=== PATIENT | male | born 1945 | race Caucasian/White ===

== ENCOUNTER 2018-02-26 19:26 | Inpatient (IN) ==
[2018-02-26] MEDS ORDERED: Sod Chloride 0.9% Inj 1,000 ML IV.CONT SCH (20:15)
[2018-02-26] MEDS ORDERED: Morphine Inj 4 MG/ML Vial IV.PUSH ONE (20:37)
--- NOTE | 2018-02-26 21:10 | ED ---
HPI General Chief complaint: Neck Pain/Injury Stated complaint: Trauma Transfer Time Seen by Provider: 02/26/18 19:31 Source: other (records from outside hospital) History of Present Illness HPI narrative: Patient presents to the emergency department as a transfer from [facility]. Patient apparently fell on and he was diagnosed with left rib fractures, left wrist fracture, cervical spine fractures, T-spine fracture, questionable subarachnoid hemorrhage, and questionable intra- abdominal injury. Patient was accepted by the trauma doctor, Dr Najera, and transfer to [facility] for further evaluation. Emergency department patient is complaining of pain "all over.". Related Data Home Medications Medication Instructions Recorded Confirmed lithium aspartate 30 mg PO TID 02/26/18 02/26/18 Allergies Allergy/AdvReac Type Severity Reaction Status Date / Time No Known Allergies Allergy Verified 02/26/18 20:14 Review of Systems ROS: all other systems reviewed are negative [facility] Medical History Medical History GERD (gastroesophageal reflux disease) (Acute) Gallbladder disease (Acute) Social History Social History Recent Travel in [facility] within the Last 8 Weeks: No Recent Out of Country Travel within the Last 8 Weeks: No Exam Narrative Exam Narrative: GENERAL: No acute distress. SKIN: Focused skin assessment warm/dry. HEAD: Atraumatic. Normocephalic. EYES: Pupils equal and round. No scleral icterus. No injection or drainage. ENT: No nasal bleeding or discharge. Mucous membranes pink and moist. NECK: Trachea midline. No JVD. C-collar in place. She has diffuse cervical spine tenderness. CARDIOVASCULAR: Regular rate and rhythm. No murmur appreciated. Chest: Left chest wall tender to palpation RESPIRATORY: No accessory muscle use. Clear to auscultation. Breath sounds equal bilaterally. GASTROINTESTINAL: Abdomen soft, non-tender, nondistended. Hepatic and splenic margins not palpable. Rectal: Normal tone, no blood. MUSCULOSKELETAL: No obvious deformities. No clubbing. No cyanosis. No edema. Positive T-spine tenderness. No L-spine tenderness. NEUROLOGICAL: Awake and alert. No obvious cranial nerve deficits. Motor grossly within normal limits. Normal speech. PSYCHIATRIC: Appropriate mood and affect; insight and judgment normal. Course Initial Documented Vital Signs Temperature 97.8 F 02/26/18 19:33 Pulse Rate 114 H 02/26/18 19:33 Respiratory Rate 18 02/26/18 19:33 Blood Pressure 140/71 02/26/18 19:33 Pulse Oximetry 98 02/26/18 19:33 Last Documented Vital Signs Temperature 97.8 F 02/26/18 19:33 Pulse Rate 114 H 02/26/18 19:33 Respiratory Rate 18 02/26/18 19:33 Blood Pressure 140/71 02/26/18 19:33 Pulse Oximetry 98 02/26/18 19:33 Medical Decision Making MDM Narrative Medical decision making narrative: Patient presents to the emergency department as a trauma transfer. Patient placed on conveyor monitor, continuous pulse ox, IV access obtained. She did present with labs and imaging results from the outside hospital. He is requesting medication for pain, given 4 mg IV morphine and normal saline at 100 cc/h. Discussed case with trauma surgeon, who advised to admit patient to ICU and he will evaluate patient and determine if additional imaging or blood work is required. Medical Screen Exam Complete: Yes Emergency Medical Condition: Yes Differential Diagnosis Differential Diagnosis: ICH, fractures, dislocation, intra-abdominal injury Discharge Plan Discharge Disposition Patient Disposition: 30 Still Patient Discharge Condition Condition: Critical Discharge Details Diagnosis: Fracture of wrist, Fracture, ribs, Fracture multiple cervical vertebra-closed, Fracture of thoracic spine Physicians Team ED Provider: Amena Danielle Primary Care Provider: UNKNOWN, Attending Provider: Masha Najera Status ED Status: Admitted Patient
[2018-02-26] MEDS ORDERED: Morphine Inj 4 MG/ML Vial IV.PUSH PRN (23:20)
--- NOTE | 2018-02-27 00:01 | XR ---
EXAM DATE: 02/26/2018 11:47 PM EDT AGE/SEX: 72 years / Male INDICATIONS: Trauma to left arm. Transfer from another facility. CLINICAL DATA: This is the patient's initial encounter. Patient reports that signs and symptoms have been present for 1 day and indicates a pain score of 10/10. MEDICAL/SURGICAL HISTORY: Non-responsive. Non-responsive. COMPARISON: No prior exams available for comparison. FINDINGS: There is fracture at the distal radial metaphyseal region. Significant displacement is not seen. Ther e is also fracturing at the ulnar styloid. The radiocarpal joint is aligned. There is degenerative ch ruchi at the first carpometacarpal joint. CONCLUSION: Acute appearing distal radial and ulnar styloid fracture. Electronically signed by: Deacon Still MD 02/26/2018 11:59 PM EDT
--- NOTE | 2018-02-27 00:54 | P.HPGS ---
History of Present Illness Primary Care Physician: UNKNOWN History of Present Illness: 73-year-old male transfer from [facility], apparently patient fell 3 days ago, he has been feeling weak and was seen in the [facility], they performed a complete trauma workup, has a left wrist fracture, he has questionable acute fractures of the C-spine, he has 4 acute rib fractures on the left side, the history taking patient complains of pain all over, he is awake, denies neck pain-patient is a poor historian he apparently has history of EtOH abuse-multiple other medical problems including liver cirrhosis. Inpatient Certification: I certify that the inpatient services were ordered in accordance with Medicare regulations governing the order. 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: Multiplex Operator / EMT - Medical History Medical History: Medical History (Last Updated 02/26/18 @ 22:44 by Barbara Jim) Bipolar disorder GERD (gastroesophageal reflux disease) Gallbladder disease - Tobacco History Tobacco Use In Past 30 Days: Yes Smoking Status: Current every day smoker Tobacco Type: Cigarettes - Alcohol History How Often Do You Have a Drink Containing Alcohol: Monthly or less - Travel History Recent Travel in the [place] Within the Last 8 Weeks: No Recent Travel Out of the Country Within the Last 8 Weeks: No - Immunization History Tetanus Immunization: <5 Years Medications and Allergies Active Medications: Active Medications Chlorhexidine Gluconate (Chlorhexidine 2% Cloth) 3 pack TOPICAL DAILY@0400 VIVIANE Stop: 03/04/18 03:59 Chlorhexidine Gluconate (Chlorhexidine 2% Cloth) 3 pack TOPICAL DAILY@0400 PRN PRN Reason: Extra cloth needed Stop: 03/04/18 03:59 Famotidine (Pepcid Pf Inj) 20 mg IV.PUSH Q12HR VIVIANE Sodium Chloride (Ns Inj) 1,000 mls @ 100 mls/hr IV.CONT .Q10H VIVIANE Last Admin: 02/26/18 20:38 Dose: 100 mls/hr Sodium Chloride (Ns Inj) 1,000 mls @ 100 mls/hr IV.CONT .Q10H [facility] Morphine Sulfate (Morphine Inj) 2 mg IV.PUSH Q2H PRN PRN Reason: PAIN SCALE 6 TO 10 Ondansetron HCl (Zofran Inj) 4 mg IV.PUSH Q6H PRN PRN Reason: NAUSEA OR VOMITING Senna/Docusate Sodium (Reina-Colace) 1 tab PO BID VIVIANE Allergies Allergy/AdvReac Type Severity Reaction Status Date / Time No Known Allergies Allergy Verified 02/26/18 20:14 Home Medications Medication Instructions Recorded Confirmed Type lithium aspartate 30 mg PO TID 02/26/18 02/26/18 History Exam Vital signs: Vital Signs 02/26/18 19:33 02/26/18 19:42 02/26/18 23:20 Temperature 97.8 F Pulse Rate 114 H 114 H 91 H Respiratory Rate 18 16 16 Blood Pressure 140/71 106/74 106/78 Pulse Oximetry 98 02/26/18 23:21 02/26/18 23:42 Temperature Pulse Rate Respiratory Rate 16 Blood Pressure Pulse Oximetry 98 Intake & Output 02/26/18 02/26/18 02/27/18 06:59 18:59 06:59 Weight 72.575 kg - Constitutional no acute distress, thin - Routine HEENT Exam Head: Present: normocephalic, atraumatic Eye: Present: EOMI, PERRL ENT: Present: mucous membranes moist, oropharynx clear - Routine Neck Exam Present: supple, full ROM, trachea midline - Routine Chest/Breast/Axilla Exam Chest wall: Present: tenderness - Routine Respiratory Exam Present: CTA bilaterally - Routine Cardiovascular Exam Present: RRR - Routine Abdominal Exam Present: soft, normoactive bowel sounds - Routine Neurological Exam Present: alert Results - Results CT scan - abdomen: report reviewed (Liver mass-liver cirrhosis) CT scan - chest: report reviewed (Fracture of the 4,5,7 and ninth ribs) Caprini VTE Risk Assessment Caprini VTE Risk Assessment: Moderate/High Risk (score >= 2) (acute trauma) VTE Pharmacological Exception Reason: Hemorrhage Caprini Risk Assessment Model: Point Value = 1 Point Value = 2 Point Value = 3 Point Value = 5 Age 41-60 Minor surgery BMI > 25 kg/m2 Swollen legs Varicose veins or History of unexplained or recurrent spontaneous Oral contraceptives or hormone replacement Sepsis (< 1 month) Serious lung disease, including pneumonia (< 1 month) Abnormal pulmonary function Acute myocardial infarction Congestive heart failure (< 1 month) History of inflammatory bowel disease Medical patient at bed rest Age 61-74 Arthroscopic surgery Major open surgery (> 45 min) Laparoscopic surgery (> 45 min) Malignancy Confined to bed (> 72 hours) Immobilizing plaster cast Central venous access Age >= 75 History of VTE Family history of VTE Factor V Leiden Prothrombin [id number] Lupus anticoagulant Anticardiolipin antibodies Elevated serum homocysteine Heparin-induced thrombocytopenia Other congenital or acquired thrombophilia Stroke (< 1 month) Elective arthroplasty Hip, pelvis, or leg fracture Acute spinal cord injury (< 1 month) Prophylaxis Regimen: Total Risk Factor Score Risk Level Prophylaxis Regimen 0-1 Low Early ambulation 2 Moderate Order ONE of the following: *Sequential Compression Device (SCD) *Heparin 5000 units SQ BID 3-4 Higher Order ONE of the following medications: *Heparin 5000 units SQ TID *Enoxaparin/Lovenox 40 mg SQ daily (WT < 150 kg, CrCl > 30 mL/min) *Enoxaparin/Lovenox 30 mg SQ daily (WT < 150 kg, CrCl > 10-29 mL/min) *Enoxaparin/Lovenox 30 mg SQ BID (WT < 150 kg, CrCl > 30 mL/min) AND/OR *Sequential Compression Device (SCD) 5 or more Highest Order ONE of the following medications: *Heparin 5000 units SQ TID (Preferred with Epidurals) *Enoxaparin/Lovenox 40 mg SQ daily (WT < 150 kg, CrCl > 30 mL/min) *Enoxaparin/Lovenox 30 mg SQ daily (WT < 150 kg, CrCl > 10-29 mL/min) *Enoxaparin/Lovenox 30 mg SQ BID (WT < 150 kg, CrCl > 30 mL/min) AND *Sequential Compression Device (SCD) Assessment and Plan - Plan Multiple rib fractures on the left side Left wrist fracture ? C-spine fracture ?TBI EtOH abuse hx Hyponatremia ? liver cancer Patient to the [facility] Neurosurgery consult in the morning Medical consult in the morning Follow sodium She has multiple medical issues , which are more pertinent than the trauma which happened 3 days ago-after neurosurgery& orthopedic assessment -patient could be transferred to the medical service
[2018-02-27] MEDS: Sod Chloride 0.9% Inj 1,000 ML IV.CONT SCH ×3 (01:08→15:22)
[2018-02-27] MEDS ORDERED: Chlorhexidine Gluconate 2% 1 Pack (2 Cloths) TOPICAL PRN (04:00)
[2018-02-27 04:29] LABS: Baso % (Auto) 0.5 % (0.0-2.0); Eos % (Auto) 0.2 % (0.0-4.0); Hematocrit 35.7 % (39.0-51.0); Hemoglobin 12.1 gm/dL (13.0-17.0); Lymph # (Auto) 0.9 th/mm3 (1.0-4.8); Lymph % (Auto) 9.8 % (9.0-44.0); Mean Corpuscular HGB Conc 33.8 % (32.0-36.0); Mean Corpuscular Hemoglobin 30.9 pg (27.0-34.0); Mean Corpuscular Volume 91.4 fL (80.0-100.0); Mean Platelet Volume 9.6 fL (7.0-11.0); Mono # (Auto) 0.7 th/mm3 (0.0-0.9); Neut # (Auto) 7.3 th/mm3 (1.8-7.7); Neut % (Auto) 81.5 % (16.0-70.0); Platelet Count 185 th/mm3 (150-450); Red Cell Distribution Width 13.8 % (11.6-17.2); White Blood Count 8.9 th/mm3 (4.0-11.0)
[2018-02-27 04:33] LABS: INR 1.3 Ratio; Prothrombin Time 12.7 sec (9.8-11.6)
[2018-02-27] MEDS: Chlorhexidine Gluconate 2% 1 Pack (2 Cloths) TOPICAL SCH (05:33)
--- NOTE | 2018-02-27 06:12 | XR ---
EXAM DATE: 02/27/2018 5:36 AM EDT AGE/SEX: 72 years / Male INDICATIONS: Shortness of breath, trauma. CLINICAL DATA: This is the patient's subsequent encounter. Patient reports that signs and symptoms h ave been present for 2 days and indicates a pain score of 10/10. MEDICAL/SURGICAL HISTORY: Hypertension. None. COMPARISON: No prior exams available for comparison. FINDINGS: The patient is rotated towards the right. The heart size is normal. There is mild increased density a t the left base. The right lung is grossly clear. The right costophrenic angle is excluded from the i mage. The bony structures appear grossly intact. CONCLUSION: Mild increased density at the left base representing some degree of consolidation/contusion or atelec tasis. Electronically signed by: Deacon Still MD 02/27/2018 6:10 AM EDT
--- NOTE | 2018-02-27 06:22 | MB ---
cc: Ovi Blake MD DATE: 02/27/2018 REASON FOR CONSULTATION: Left distal radius fracture. HISTORY OF PRESENT ILLNESS: This is a 72-year-old male who transferred from [facility]. He had a reported fall several days ago and was feeling weak. He went to [facility] and workup revealed a left distal radius fracture, questionable cervical spine fracture. He did have left-sided rib fractures. The patient is a poor historian. He has a history of alcohol abuse and liver cirrhosis. He is currently an inpatient in the intensive care unit at [facility] after transfer. He also had a questionable subarachnoid hemorrhage. Dr. Najera did accept the patient in transfer. PAST MEDICAL HISTORY: Positive for gallbladder disease, gastric reflux. REVIEW OF SYSTEMS: All other review of systems is negative. FAMILY HISTORY: Reviewed, noncontributory. SOCIAL HISTORY: Positive for alcohol. PHYSICAL EXAMINATION: GENERAL: The patient is lying in bed, awake, confused, in no acute distress. HEENT: Normocephalic, atraumatic. Pupils round. No scleral icterus. NECK: Midline. C-collar in place. HEART: Regular rate and rhythm. LUNGS: Clear. ABDOMEN: Soft, nontender. EXTREMITIES: Left upper extremity is currently splinted with a volar wrist splint. Brisk capillary refill of digits. Sensation is intact distally. IMAGING DATA: X-ray of the left wrist reveals a distal radius fracture. There was only mild impaction and mild dorsal angulation. Overall, the fracture alignment is satisfactory. IMPRESSION: This patient is a 72-year-old male who apparently had fallen 3 days ago. He has a distal radius fracture, left side, with only mild displacement, history of alcohol abuse, liver cirrhosis. He is being worked up for further cervical spine injury and possible traumatic brain injury. PLAN: Discussed the diagnosis with the patient. From an orthopedic standpoint, I recommend nonoperative treatment of the distal radius fracture. Maintain splint. The patient can follow up with the undersigned at the [facility] after discharge. MD MICHOACANO Avila/shirley , 05:51 AM , 05:58 AM
[2018-02-27 08:26] LABS: Baso % (Auto) 0.4 % (0.0-2.0); Eos % (Auto) 0.2 % (0.0-4.0); Hematocrit 36.1 % (39.0-51.0); Hemoglobin 12.2 gm/dL (13.0-17.0); Lymph # (Auto) 0.6 th/mm3 (1.0-4.8); Lymph % (Auto) 6.1 % (9.0-44.0); Mean Corpuscular HGB Conc 33.9 % (32.0-36.0); Mean Corpuscular Hemoglobin 31.2 pg (27.0-34.0); Mean Corpuscular Volume 91.9 fL (80.0-100.0); Mean Platelet Volume 9.5 fL (7.0-11.0); Mono # (Auto) 0.6 th/mm3 (0.0-0.9); Mono % (Auto) 6.8 % (0.0-8.0); Neut # (Auto) 8.1 th/mm3 (1.8-7.7); Neut % (Auto) 86.5 % (16.0-70.0); Platelet Count 194 th/mm3 (150-450); Red Blood Count 3.93 mil/mm3 (4.50-5.90); Red Cell Distribution Width 13.6 % (11.6-17.2); White Blood Count 9.4 th/mm3 (4.0-11.0)
[2018-02-27 08:47] LABS: Anion Gap 10 meq/L (5-15); Blood Urea Nitrogen 4 mg/dL (7-18); Calcium 7.7 mg/dL (8.5-10.1); Carbon Dioxide 20.3 meq/L (21.0-32.0); Chloride 103 meq/L (98-107); Glomerular Filtration Rate Greater Than 89 mL/min (>89); Glucose,Random 133 mg/dL (74-106); Potassium 3.9 meq/L (3.5-5.1); Sodium 133 meq/L (136-145)
[2018-02-27] MEDS: Famotidine PF Inj 20 MG/2 ML Vial IV.PUSH SCH ×2 (08:49→19:59)
[2018-02-27] MEDS: Senna/Docusate Sodium 8.6/50 MG Tablet PO SCH ×2 (08:50→19:59)
[2018-02-27] MEDS ORDERED: Morphine Inj 4 MG/ML Vial IV.PUSH PRN (09:26)
[2018-02-27] MEDS ORDERED: chlordiazePOXIDE 25 MG Capsule PO SCH (10:00)
[2018-02-27] MEDS ORDERED: Methocarbamol 500 MG Tablet PO SCH (10:00)
[2018-02-27] MEDS: Lidocaine 5% Patch T-DERMAL SCH (10:57)
--- NOTE | 2018-02-27 11:47 | P.PNCC ---
Subjective Brief History: 73-year-old male transfer from [facility], apparently patient fell 3 days ago, he has been feeling weak and was seen in the [facility], they performed a complete trauma workup, has a left wrist fracture, he has questionable acute fractures of the C-spine, he has 4 acute rib fractures on the left side, the history taking patient complains of pain all over, he is awake, denies neck pain-patient is a poor historian he apparently has history of EtOH abuse-multiple other medical problems including liver cirrhosis. 24 Hour Review/Hospital Course: 02/27 He is hemodynamically normal Sodium improved to 133 His urine output is adequate He is awake and alert He is slightly tachycardic which could be secondary to pain Currently no signs of delirium tremens but obviously patient is high risk Neurosurgical consult is pending Is neurologically intact Objective Vital Signs / I&O: Vital Signs 02/26/18 19:33 02/26/18 19:42 02/26/18 23:20 Temperature 97.8 F Pulse Rate 114 H 114 H 91 H Respiratory Rate 18 16 16 Blood Pressure 140/71 106/74 106/78 Pulse Oximetry 98 02/26/18 23:21 02/26/18 23:42 02/27/18 00:00 Temperature 97.9 F Pulse Rate 110 H Respiratory Rate 16 12 Blood Pressure 166/85 H Pulse Oximetry 98 99 02/27/18 04:00 02/27/18 08:00 Temperature 97.4 F L 98.3 F Pulse Rate 110 H 112 H Respiratory Rate 19 18 Blood Pressure 130/72 150/73 H Pulse Oximetry 97 91 L Intake & Output 02/26/18 02/27/18 02/27/18 18:59 06:59 18:59 Intake Total 1000 / 1000 Output Total 650 / 650 Balance -650 / -650 1000 / 1000 Weight 82.9 kg Intake: IV 1000 / 1000 NS Inj 1,000 ML @ 100 mls/hr IV 1000 / 1000 .CONT .Q10H VIVIANE Rx#:[id number] Output: Urine Amount (Catheter) 650 / 650 Indwelling Urethral Catheter 650 / 650 Other: Weight On Admission 83 kg Result Diagrams: 02/27/18 07:56 02/27/18 07:56 Imaging: Impressions Wrist X-Ray 02/26/18 00:00 CONCLUSION: Acute appearing distal radial and ulnar styloid fracture. Chest X-Ray 02/27/18 04:01 CONCLUSION: Mild increased density at the left base representing some degree of consolidation/contusion or atelectasis. 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
--- NOTE | 2018-02-27 14:14 | P.CONIM ---
History of Present Illness Primary Care Provider: UNKNOWN History of Present Illness: This is a 72-year-old male with history of alcohol abuse,, bipolar disorder, GERD transferred from [facility] after presenting 3 days ago for a fall. Patient was admitted to trauma and patient sustained a left wrist fracture, questionable C-spine fracture and multiple rib fractures. We are consulted for hyponatremia, alcohol abuse. Poor historian and not cooperative, most of the history is from the patient's . Patient allegedly fell 4 days ago down 12 steps. No loss of consciousness, no dizziness or lightheadedness. Denies any chest pain or palpitations. Patient has history of diabetes and hypertension but not on any medications. He has not seen any physician in years. Presently , his only complaint is pain all-over especially on his chest with deep inspiration. No headache, sob or palpitations. He drinks 6 shots of liquor daily , last drink was 4 days ago. Per , no history of hepatitis but he does have a history of fatty liver from alcohol abuse. FHX: non-contributory SHx: smokes more than a pack a day for years Review of Systems All other pertinent systems were reviewed and are negative. [facility] - History History Provided By: Manager Pathology / EMT - Medical History Medical History: Medical History (Last Reviewed 02/27/18 @ 09:38 by Domenica Jovel) Bipolar disorder GERD (gastroesophageal reflux disease) Gallbladder disease - Tobacco History Tobacco Use In Past 30 Days: Yes Smoking Status: Current every day smoker Tobacco Type: Cigarettes - Alcohol History How Often Do You Have a Drink Containing Alcohol: Monthly or less - Travel History Recent Travel in the [place] Within the Last 8 Weeks: No Recent Travel Out of the Country Within the Last 8 Weeks: No - Immunization History Tetanus Immunization: <5 Years Medications and Allergies Active Medications: Active Medications Albuterol (Duoneb Neb (Prn)) 1 ampul NEB Q2HR NEB PRN PRN Reason: SHORTNESS OF BREATH/WHEEZING Chlordiazepoxide (Librium) 25 mg PO Q6H [facility] Last Admin: 02/27/18 10:57 Dose: 25 mg Chlorhexidine Gluconate (Chlorhexidine 2% Cloth) 3 pack TOPICAL DAILY@0400 [facility] Stop: 03/04/18 03:59 Last Admin: 02/27/18 05:33 Dose: 3 pack Chlorhexidine Gluconate (Chlorhexidine 2% Cloth) 3 pack TOPICAL DAILY@0400 PRN PRN Reason: Extra cloth needed Stop: 03/04/18 03:59 Famotidine (Pepcid Pf Inj) 20 mg IV.PUSH Q12HR [facility] Last Admin: 02/27/18 08:49 Dose: 20 mg Sodium Chloride (Ns Inj) 1,000 mls @ 100 mls/hr IV.CONT .Q10H [facility] Last Admin: 02/27/18 08:50 Dose: 100 mls/hr Lidocaine HCl (Lidoderm 5% Patch.12 Hr) 1 patch T-DERMAL DAILY [facility] Last Admin: 02/27/18 10:57 Dose: 1 patch Methocarbamol (Robaxin) 500 mg PO Q8H [facility] Last Admin: 02/27/18 10:57 Dose: 500 mg Morphine Sulfate (Morphine Inj) 4 mg IV.PUSH Q3HR PRN PRN Reason: PAIN SCALE 6 TO 10 Last Admin: 02/27/18 14:03 Dose: 4 mg Non-Formulary Medication ([place] Aspartate [[place] Aspartate]) 30 mg PO TID [facility] Ondansetron HCl (Zofran Inj) 4 mg IV.PUSH Q6H PRN PRN Reason: NAUSEA OR VOMITING Patch Removal (Remove Old Patch) 1 each T-DERMAL HS [facility] Propranolol HCl (Inderal) 20 mg PO Q6H@07,13,19,01 [facility] Last Admin: 02/27/18 12:19 Dose: 20 mg Senna/Docusate Sodium (Reina-Colace) 1 tab PO BID [facility] Last Admin: 02/27/18 08:50 Dose: Not Given Allergies Allergy/AdvReac Type Severity Reaction Status Date / Time No Known Allergies Allergy Verified 02/26/18 20:14 Home Medications Medication Instructions Recorded Confirmed Type lithium aspartate 30 mg PO TID 02/26/18 02/26/18 History Exam Vital signs: Vital Signs 02/26/18 19:33 02/26/18 19:42 02/26/18 23:20 Temperature 97.8 F Pulse Rate 114 H 114 H 91 H Respiratory Rate 18 16 16 Blood Pressure 140/71 106/74 106/78 Pulse Oximetry 98 02/26/18 23:21 02/26/18 23:42 02/27/18 00:00 Temperature 97.9 F Pulse Rate 110 H Respiratory Rate 16 12 Blood Pressure 166/85 H Pulse Oximetry 98 99 02/27/18 04:00 02/27/18 08:00 02/27/18 12:00 Temperature 97.4 F L 98.3 F 98.2 F Pulse Rate 110 H 112 H 112 H Respiratory Rate 19 18 20 Blood Pressure 130/72 150/73 H 114/60 Pulse Oximetry 97 91 L 94 L Intake & Output 02/26/18 02/27/18 02/27/18 18:59 06:59 18:59 Intake Total 1000 / 1000 Output Total 650 / 650 Balance -650 / -650 1000 / 1000 Weight 82.9 kg Intake: IV 1000 / 1000 NS Inj 1,000 ML @ 100 mls/hr IV 1000 / 1000 .CONT .Q10H [facility] Rx#:[id number] Output: Urine Amount (Catheter) 650 / 650 Indwelling Urethral Catheter 650 / 650 Other: Weight On Admission 83 kg Narrative: Not in distress, sleepy but talkative and arousable. Poor historian. PERRL, pink conjunctiva without injection, anicteric Nose without bleeding, airway patent C-collar in place. Tachycardic, regular rhythm, no murmurs. Poor effort, decreased breath sounds both bases. No crackles or wheezing. Normal bowel sounds, soft, non-tender, nondistended, no guarding. Extremities without clubbing, cyanosis, or edema. AAO x3, no cranial nerve deficits, moves all 4 extremities Results - Labs CBC & Chem 7: 02/27/18 07:56 02/27/18 07:56 Labs: Laboratory Results - last 24 hr 02/26/18 02/27/18 02/27/18 23:41 00:15 03:40 WBC 8.9 RBC 3.90 L Hgb 12.1 L Hct 35.7 L MCV 91.4 MCH 30.9 MCHC 33.8 RDW 13.8 Plt Count 185 MPV 9.6 Neut % (Auto) 81.5 H Lymph % (Auto) 9.8 [place] % (Auto) 8.0 Eos % (Auto) 0.2 Baso % (Auto) 0.5 Neut # (Auto) 7.3 Lymph # (Auto) 0.9 L [place] # (Auto) 0.7 Eos # (Auto) 0.0 Baso # (Auto) 0.0 WBC Differential . Differential Comment Auto diff final PT INR Sodium Potassium Chloride Carbon Dioxide Anion Gap BUN Creatinine Estimated GFR POC Glucose 129 H Random Glucose Calcium Nasal Screen MRSA (PCR) Not detected 02/27/18 02/27/18 02/27/18 03:40 07:56 07:56 WBC 9.4 RBC 3.93 L Hgb 12.2 L Hct 36.1 L MCV 91.9 MCH 31.2 MCHC 33.9 RDW 13.6 Plt Count 194 MPV 9.5 Neut % (Auto) 86.5 H Lymph % (Auto) 6.1 L [place] % (Auto) 6.8 Eos % (Auto) 0.2 Baso % (Auto) 0.4 Neut # (Auto) 8.1 H Lymph # (Auto) 0.6 L [place] # (Auto) 0.6 Eos # (Auto) 0.0 Baso # (Auto) 0.0 WBC Differential . Differential Comment Auto diff final PT 12.7 H INR 1.3 Sodium 133 L Potassium 3.9 Chloride 103 Carbon Dioxide 20.3 L Anion Gap 10 BUN 4 L Creatinine 0.35 L Estimated GFR Greater than 89 POC Glucose Random Glucose 133 H Calcium 7.7 L Nasal Screen MRSA (PCR) - Imaging Impressions Wrist X-Ray 02/26/18 00:00 CONCLUSION: Acute appearing distal radial and ulnar styloid fracture. Chest X-Ray 02/27/18 04:01 CONCLUSION: Mild increased density at the left base representing some degree of consolidation/contusion or atelectasis. Assessment and Plan - Plan This is a 72/M with h/o EtOH abuse admitted from for trauma Trauma after a mechanical fall - L wrist XR showed distal radial and ulnar fracture, consult orthopedics, pain control - C-spine fax - awaiting input from neurosurgery - multiple rib fractures, pain control: robaxin pnr, lidocaine patch, start norco, morphine switch to only for breakthrough, trauma is following Atrial flutter - EKG showed atrial flutter, patient is asymptomatic, will start Metoprolol, check EKG again, trop x 2, TSH, FT4. Stop propranolol. r/o aspiration pneumonia - no LOC, CXR shows increased density left base, possible contusion vs consolidation, doubt pneumonia, could be contusion from fall/rib fx. No leukocytosis or SOB, afebrile, no ABx for now, Incentive spirometry. Repeat CXR in a few days. Bipolar disorder - on lithium, non-formulary, patient may take his own, asked RN to verify and have family bring his meds. ?liver cirrhosis - r/o cancer, <?>, check LFTs, US liver, hepatitis panel , patient has known fatty liver per due to EtOH abuse Tobacco abuse-nicotine patch Hyponatremia - hypovolemia likely cause, start NS, recheck BMP at am EtOH abuse - watch out for withdrawal, start CIWA protocol, d/c librium DVT PPx: SCDs, start pharmacological once cleared by surgery/trauma Transfer to [facility].
[2018-02-27] MEDS ORDERED: Haloperidol Inj 5 MG/ML Ampul IV.PUSH PRN (14:57)
[2018-02-27] MEDS ORDERED: LORazepam 1 MG Tablet PO PRN (14:57)
--- NOTE | 2018-02-27 15:02 | P.CONNS ---
History of Present Illness Service: Neurosurgery Consult date: 02/27/18 Reason for Consult: cervical fractures Primary Care Provider: UNKNOWN Chief Complaint: neck pain History of Present Illness: 72 yo with PMH of bipolar, cirrhosis 2/2 ETOH abuse transferred from OSH for evaluation for multiple injuries. Neurosurgery specifically consulted for cervical spine injuries. Per report patient fell down multiple flights of stairs 4 days ago. Was evaluated by OSH and found to have multiple rib fractures, left wrist fracture, and multiple cervical spine fractures. Of note , patient has stopped taking lithium and is reported to be confused and not at baseline cognitive level. Does report mild neck pain. Denies any arm/leg weakness or bb difficulties Review of Systems All other systems reviewed negative except as stated in HPI [facility] - History History Provided By: Central Office Operator / EMT - Medical History Medical History: Medical History (Last Reviewed 02/27/18 @ 09:38 by Domenica Jovel) Bipolar disorder GERD (gastroesophageal reflux disease) Gallbladder disease - Tobacco History Tobacco Use In Past 30 Days: Yes Smoking Status: Current every day smoker Tobacco Type: Cigarettes - Alcohol History How Often Do You Have a Drink Containing Alcohol: Monthly or less - Travel History Recent Travel in the [place] Within the Last 8 Weeks: No Recent Travel Out of the Country Within the Last 8 Weeks: No - Immunization History Tetanus Immunization: <5 Years Medications and Allergies Active Medications: Active Medications Albuterol (Duoneb Neb (Prn)) 1 ampul NEB Q2HR NEB PRN PRN Reason: SHORTNESS OF BREATH/WHEEZING Aspirin (Aspirin Chew) 81 mg PO DAILY [facility] Chlordiazepoxide (Librium) 25 mg PO Q6H [facility] Last Admin: 02/27/18 10:57 Dose: 25 mg Chlorhexidine Gluconate (Chlorhexidine 2% Cloth) 3 pack TOPICAL DAILY@0400 VIVIANE Stop: 03/04/18 03:59 Last Admin: 02/27/18 05:33 Dose: 3 pack Chlorhexidine Gluconate (Chlorhexidine 2% Cloth) 3 pack TOPICAL DAILY@0400 PRN PRN Reason: Extra cloth needed Stop: 03/04/18 03:59 Famotidine (Pepcid Pf Inj) 20 mg IV.PUSH Q12HR [facility] Last Admin: 02/27/18 08:49 Dose: 20 mg Sodium Chloride (Ns Inj) 1,000 mls @ 100 mls/hr IV.CONT .Q10H [facility] Last Admin: 02/27/18 08:50 Dose: 100 mls/hr Sodium Chloride (Ns Inj) 1,000 mls @ 84 mls/hr IV.CONT .[id number] [facility] Lidocaine HCl (Lidoderm 5% Patch.12 Hr) 1 patch T-DERMAL DAILY [facility] Last Admin: 02/27/18 10:57 Dose: 1 patch Methocarbamol (Robaxin) 500 mg PO Q8H [facility] Last Admin: 02/27/18 10:57 Dose: 500 mg Metoprolol Tartrate (Lopressor) 25 mg PO BID [facility] Morphine Sulfate (Morphine Inj) 4 mg IV.PUSH Q3HR PRN PRN Reason: PAIN SCALE 6 TO 10 Last Admin: 02/27/18 14:03 Dose: 4 mg Non-Formulary Medication ([place] Aspartate [[place] Aspartate]) 30 mg PO TID [facility] Ondansetron HCl (Zofran Inj) 4 mg IV.PUSH Q6H PRN PRN Reason: NAUSEA OR VOMITING Patch Removal (Remove Old Patch) 1 each T-DERMAL HS [facility] Propranolol HCl (Inderal) 20 mg PO Q6H@07,13,19, [facility] Last Admin: 02/27/18 12:19 Dose: 20 mg Senna/Docusate Sodium (Reina-Colace) 1 tab PO BID [facility] Last Admin: 02/27/18 08:50 Dose: Not Given Sodium Chloride (Ns Flush) 2 ml IV.FLUSH PRN PRN PRN Reason: FLUSH AFTER USING IV ACCESS Sodium Chloride (Ns Flush) 2 ml IV.FLUSH BID [facility] Allergies Allergy/AdvReac Type Severity Reaction Status Date / Time No Known Allergies Allergy Verified 02/26/18 20:14 Home Medications Medication Instructions Recorded Confirmed Type lithium aspartate 30 mg PO TID 02/26/18 02/26/18 History Exam Vital signs: Vital Signs 02/26/18 19:33 02/26/18 19:42 02/26/18 23:20 Temperature 97.8 F Pulse Rate 114 H 114 H 91 H Respiratory Rate 18 16 16 Blood Pressure 140/71 106/74 106/78 Pulse Oximetry 98 02/26/18 23:21 02/26/18 23:42 02/27/18 00:00 Temperature 97.9 F Pulse Rate 110 H Respiratory Rate 16 12 Blood Pressure 166/85 H Pulse Oximetry 98 99 02/27/18 04:00 02/27/18 08:00 02/27/18 12:00 Temperature 97.4 F L 98.3 F 98.2 F Pulse Rate 110 H 112 H 112 H Respiratory Rate 19 18 20 Blood Pressure 130/72 150/73 H 114/60 Pulse Oximetry 97 91 L 94 L Intake & Output 02/26/18 02/27/18 02/27/18 18:59 06:59 18:59 Intake Total 1000 / 1000 Output Total 650 / 650 Balance -650 / -650 1000 / 1000 Weight 82.9 kg Intake: IV 1000 / 1000 NS Inj 1,000 ML @ 100 mls/hr IV 1000 / 1000 .CONT .Q10H [facility] Rx#:[id number] Output: Urine Amount (Catheter) 650 / 650 Indwelling Urethral Catheter 650 / 650 Other: Weight On Admission 83 kg Narrative: E4 in cervical collar [employer] Set Up Operator intact AOx self, hospital, year confused and poor historian 5/5 strength in the UE and LEs, exam deferred to left wrist 2/2 fracture 0/4 reflexes throughout absent hoffmans or babinskis no sensory level noted Results - Laboratory Findings CBC and BMP: 02/27/18 07:56 02/27/18 07:56 Abnormal lab findings: Abnormal Labs 02/26/18 02/27/18 02/27/18 23:41 03:40 03:40 RBC 3.90 L Hgb 12.1 L Hct 35.7 L Neut % (Auto) 81.5 H Lymph % (Auto) Neut # (Auto) Lymph # (Auto) 0.9 L PT 12.7 H Sodium Carbon Dioxide BUN Creatinine POC Glucose 129 H Random Glucose Calcium 02/27/18 02/27/18 07:56 07:56 RBC 3.93 L Hgb 12.2 L Hct 36.1 L Neut % (Auto) 86.5 H Lymph % (Auto) 6.1 L Neut # (Auto) 8.1 H Lymph # (Auto) 0.6 L PT Sodium 133 L Carbon Dioxide 20.3 L BUN 4 L Creatinine 0.35 L POC Glucose Random Glucose 133 H Calcium 7.7 L Assessment and Plan - Plan Imaging: Ct head: negative for intracranial blood but has a mixed density globular 1 x 1.75 cm mesial frontal mass adjacent to the right A2 Ct C spine: significant spondylosis throughout the entire spine. vertebral body fractures involving the C5, C6, and C7. C7 with wedge deformity. without any significant cervical canal stenosis. Also with C4, C5 spinous process fractures. noted to have a mild kyphotic curve with the apex at C6-7 which is likely chronic/degenerative in nature A/P: 72 yo s/p fall with multiple cervical spine fractures and likely incidental finding on CT head Cervical spine fractures -continue c collar at all times/bedrest -recommend MRI cervical spine to rule out any ligamentous injury. Kyphotic wedge at C6-7 is likely chronic/degenerative in nature but due to diffuse spondylosis/ankylosis spondylitis and adjacent vertebral body fractures with possible level arm effect, would obtain further imaging Mesial frontal/interhemispheric mass -not prsent on CT head from -recommend CTA head to rule out vascular malformation
[2018-02-27] MEDS ORDERED: Naloxone Inj 0.4 MG/ML Vial IV.PUSH PRN (15:04)
[2018-02-27] MEDS ORDERED: oxyCODONE/Acetaminophen 10/325 Tablet PO PRN (15:04)
[2018-02-27] MEDS: Metoprolol Tartrate 25 MG Tablet PO SCH ×2 (15:22→19:59)
--- NOTE | 2018-02-27 16:16 | ECG ---
Date Performed: 02/27/2018 Time Performed: 09:41:11 PTAGE: 72 years EKG: ATRIAL FLUTTER WITH RESPONSE WITH 2:1 AV CONDUCTION LOW QRS VOLTAGE IN LIMB LEAD ONE VENTRI CULAR ECTOPIC BEAT PRESENT NONSPECIFIC ST WAVE CHANGE Compared to previous tracing, ectopic atrial br adycardia has been replaced with atrial flutter witjh 2:1 AV conduction. There is general decreased v oltage compared to the previous tracing. Clinical correlation recommended. ABNORMAL ECG PREVIOUS TRACING : 05/11/2016 13.47 DOCTOR: Brent Jordan Interpretating Date/Time 02/27/2018 16:15:36
[2018-02-27 17:27] LABS: T4 (Thyroxine) 7.7 mcg/dL (4.5-12.1)
--- NOTE | 2018-02-27 23:37 | US ---
EXAM DATE: 02/27/2018 11:22 PM EDT AGE/SEX: 72 years / Male INDICATIONS: Abnormal labs. CLINICAL DATA: This is the patient's initial encounter. Patient reports that signs and symptoms have been present for 1 day and indicates a pain score of 3/10. MEDICAL/SURGICAL HISTORY: Gastroesophageal reflux disease. Gallbladder disease. . COMPARISON: No prior exams available for comparison. MEASUREMENTS: Liver:__ 21.2 cm. Common Bile Duct:__ Nonvisualized. Right Kidney:__ 12.5 x 6.2 x 6.4 cm. FINDINGS: Liver: The liver is diffusely heterogeneous. There is a lobulated contour. The caudate lobe is enlarg ed. Small volume ascites noted. Hepatopedal flow within the portal vein. No discrete mass.. Portal Vein: Hepatopedal flow seen in portal vein. Common Duct: Gallbladder: There is a solitary calcified gallstone that is freely mobile. The gallbladder wall is d iffusely thickened. Ascitic fluid surrounds the gallbladder. Pancreas: Not well visualized. Right Kidney: Increased echotexture. No mass or hydronephrosis. Other: None. CONCLUSION: 1. Cirrhosis with small volume ascites. 2. Lack of visualization of the pancreas. Electronically signed by: Elder Dela Cruz MD 02/27/2018 11:35 PM EDT
[2018-02-28] MEDS: Sod Chloride 0.9% Inj 1,000 ML IV.CONT SCH ×5 (03:56→16:02)
[2018-02-28] MEDS: Chlorhexidine Gluconate 2% 1 Pack (2 Cloths) TOPICAL SCH (04:54)
[2018-02-28 05:54] LABS: Baso # (Auto) 0.1 th/mm3 (0.0-0.2); Baso % (Auto) 0.7 % (0.0-2.0); Eos # (Auto) 0.1 th/mm3 (0.0-0.4); Eos % (Auto) 0.7 % (0.0-4.0); Hematocrit 36.7 % (39.0-51.0); Hemoglobin 12.2 gm/dL (13.0-17.0); Lymph # (Auto) 1.2 th/mm3 (1.0-4.8); Lymph % (Auto) 9.3 % (9.0-44.0); Mean Corpuscular HGB Conc 33.1 % (32.0-36.0); Mean Corpuscular Hemoglobin 30.7 pg (27.0-34.0); Mean Corpuscular Volume 92.6 fL (80.0-100.0); Mean Platelet Volume 9.6 fL (7.0-11.0); Mono # (Auto) 0.8 th/mm3 (0.0-0.9); Mono % (Auto) 5.8 % (0.0-8.0); Neut # (Auto) 11.2 th/mm3 (1.8-7.7); Neut % (Auto) 83.5 % (16.0-70.0); Platelet Count 201 th/mm3 (150-450); Red Blood Count 3.96 mil/mm3 (4.50-5.90); Red Cell Distribution Width 13.5 % (11.6-17.2); White Blood Count 13.4 th/mm3 (4.0-11.0)
[2018-02-28 06:22] LABS: Albumin 1.9 g/dL (3.4-5.0); Anion Gap 8 meq/L (5-15); Aspartate Aminotransferase 25 U/L (15-37); Blood Urea Nitrogen 6 mg/dL (7-18); Calcium 7.7 mg/dL (8.5-10.1); Carbon Dioxide 21.3 meq/L (21.0-32.0); Chloride 104 meq/L (98-107); Glomerular Filtration Rate Greater Than 89 mL/min (>89); Glucose,Random 116 mg/dL (74-106); Sodium 133 meq/L (136-145)
[2018-02-28 06:27] LABS: Alanine Aminotransferase 20 U/L (12-78); Alkaline Phosphatase 120 U/L (45-117); Total Protein 6.1 g/dL (6.4-8.2)
[2018-02-28 06:49] LABS: Hepatitits B Surface Antigen Nonreactive (Nonreactive)
[2018-02-28 07:08] LABS: Hepatitis A IgM Antibody Nonreactive (Nonreactive)
[2018-02-28] MEDS: Lidocaine 5% Patch T-DERMAL SCH (08:00)
[2018-02-28] MEDS: Metoprolol Tartrate 25 MG Tablet PO SCH ×3 (08:00→21:29)
[2018-02-28] MEDS: Senna/Docusate Sodium 8.6/50 MG Tablet PO SCH ×2 (08:00→21:30)
[2018-02-28] MEDS: Famotidine PF Inj 20 MG/2 ML Vial IV.PUSH SCH ×2 (08:01→21:30)
--- NOTE | 2018-02-28 08:13 | P.PNNS ---
Subjective Interval history: patient reports "i hurt all over" agitated in bed, persistently moves around and limited with answering questions Physical Exam Vital signs: Vital Signs 02/27/18 12:00 02/27/18 15:03 02/27/18 16:37 Temperature 98.2 F 98.5 F Pulse Rate 112 H 111 H Respiratory Rate 20 16 Blood Pressure 114/60 111/61 Pulse Oximetry 94 L 97 94 L 02/27/18 20:00 02/28/18 00:00 02/28/18 04:00 Temperature 98.2 F 98.2 F 98.5 F Pulse Rate 111 H 104 H 109 H Respiratory Rate 19 16 16 Blood Pressure 130/91 H 138/67 144/76 H Pulse Oximetry 93 L 97 96 Intake & Output 02/27/18 02/28/18 02/28/18 18:59 06:59 18:59 Intake Total 1720 / 1720 Output Total 700 / 700 750 / 750 Balance 1020 / 1020 -750 / -750 Weight 83 kg Intake: IV 1600 / 1600 NS Inj 1,000 ML @ 100 mls/hr IV 1600 / 1600 .CONT .Q10H [facility] Rx#:[id number] Oral 120 / 120 Output: Urine 100 / 100 Urine Amount (Catheter) 600 / 600 750 / 750 Indwelling Urethral Catheter 600 / 600 750 / 750 Other: Date of Last Bowel Movement 02/23/18 02/23/18 # Bowel Movements 0 Narrative: E4 in cervical collar [employer] Supervisor intact AOx self, hospital, year confused and poor historian 5/5 strength in the UE and LEs, exam deferred to left wrist 2/2 fracture - Urinary Catheter Management Indwelling Urethral Catheter Cath placed during this visit: yes Reason for continuing: Hourly intake/output Insertion date: 02/27/18 Assessment and Plan - Plan Imaging: Ct head: negative for intracranial blood but has a mixed density globular 1 x 1.75 cm mesial frontal mass adjacent to the right A2 Ct C spine: significant spondylosis throughout the entire spine. vertebral body fractures involving the C5, C6, and C7. C7 with wedge deformity. without any significant cervical canal stenosis. Also with C4, C5 spinous process fractures. noted to have a mild kyphotic curve with the apex at C6-7 which is likely chronic/degenerative in nature A/P: 72 yo s/p fall with multiple cervical spine fractures and likely incidental finding on CT head Cervical spine fractures -recommend aspen collar for patient comfort -recommend MRI cervical spine to rule out any ligamentous injury. Kyphotic wedge at C6-7 is likely chronic/degenerative in nature but due to diffuse spondylosis/ankylosis spondylitis and adjacent vertebral body fractures with possible level arm effect, would obtain further imaging Mesial frontal/interhemispheric mass -not present on CT head from -recommend CTA head to rule out vascular malformation
--- NOTE | 2018-02-28 16:07 | P.PNIM ---
Subjective Interval history: Patient says that he is feeling right. He reports pain with movement in the left thorax. Denies any shortness of breath. Physical Exam Vital signs: Vital Signs 02/27/18 16:37 02/27/18 20:00 02/28/18 00:00 Temperature 98.5 F 98.2 F 98.2 F Pulse Rate 111 H 111 H 104 H Respiratory Rate 16 Blood Pressure 111/61 130/91 H 138/67 Pulse Oximetry 94 L 93 L 97 02/28/18 04:00 02/28/18 08:00 02/28/18 12:00 Temperature 98.5 F 98.1 F 97.9 F Pulse Rate 109 H 109 H 110 H Respiratory Rate 18 Blood Pressure 144/76 H 115/61 123/67 Pulse Oximetry 96 98 95 Intake & Output 02/27/18 02/28/18 02/28/18 18:59 06:59 18:59 Intake Total 1720 / 1720 Output Total 700 / 700 750 / 750 Balance 1020 / 1020 -750 / -750 Weight 83 kg Intake: IV 1600 / 1600 NS Inj 1,000 ML @ 100 mls/hr IV 1600 / 1600 .CONT .Q10H VIVIANE Rx#:[id number] Oral 120 / 120 Output: Urine 100 / 100 Urine Amount (Catheter) 600 / 600 750 / 750 Indwelling Urethral Catheter 600 / 600 750 / 750 Other: Date of Last Bowel Movement 02/23/18 02/23/18 02/23/18 # Bowel Movements 0 Narrative: GENERAL: Patient sitting up in chair. Appears comfortable. Cervical collar in place. SKIN: Warm and dry. HEAD: Normocephalic. EYES: No scleral icterus. No injection or drainage. NECK: Supple, trachea midline. No JVD . CARDIOVASCULAR: Regular rate and rhythm without murmurs, gallops, or rubs. RESPIRATORY: Breath sounds equal bilaterally. No accessory muscle use. GASTROINTESTINAL: Abdomen soft, non-tender, nondistended. MUSCULOSKELETAL: No cyanosis, or edema. Left arm splinted. BACK: Nontender without obvious deformity. No CVA tenderness. - Urinary Catheter Management Indwelling Urethral Catheter Cath placed during this visit: yes, but has since been removed by the nurse Reason for continuing: Decision to DC catheter Insertion date: 02/27/18 Removal date: 02/28/18 Removal time: 11:30 Results - Labs CBC & Chem 7: 02/28/18 04:10 02/28/18 04:10 Laboratory Results - last 24 hr 02/27/18 02/27/18 02/27/18 16:33 17:13 20:10 WBC RBC Hgb Hct MCV MCH MCHC RDW Plt Count MPV Neut % (Auto) Lymph % (Auto) [place] % (Auto) Eos % (Auto) Baso % (Auto) Neut # (Auto) Lymph # (Auto) [place] # (Auto) Eos # (Auto) Baso # (Auto) WBC Differential Differential Comment Sodium Potassium Chloride Carbon Dioxide Anion Gap BUN Creatinine Estimated GFR POC Glucose 192 H 170 H Random Glucose Calcium Total Bilirubin Direct Bilirubin Indirect Bilirubin AST ALT Alkaline Phosphatase Troponin I Less than 0.02 L Total Protein Albumin TSH 2.080 Thyroxine (T4) 7.7 Hepatitis A IgM Ab Hep Bs Antigen Hep B Core IgM Ab Hep C IgG Ab 02/27/18 02/28/18 02/28/18 20:35 04:10 04:10 WBC 13.4 H RBC 3.96 L Hgb 12.2 L Hct 36.7 L MCV 92.6 MCH 30.7 MCHC 33.1 RDW 13.5 Plt Count 201 MPV 9.6 Neut % (Auto) 83.5 H Lymph % (Auto) 9.3 [place] % (Auto) 5.8 Eos % (Auto) 0.7 Baso % (Auto) 0.7 Neut # (Auto) 11.2 H Lymph # (Auto) 1.2 [place] # (Auto) 0.8 Eos # (Auto) 0.1 Baso # (Auto) 0.1 WBC Differential . Differential Comment Auto diff final Sodium 133 L Potassium 4.0 Chloride 104 Carbon Dioxide 21.3 Anion Gap 8 BUN 6 L Creatinine 0.42 L Estimated GFR Greater than 89 POC Glucose Random Glucose 116 H Calcium 7.7 L Total Bilirubin 1.0 Direct Bilirubin 0.5 H Indirect Bilirubin 0.5 AST 25 ALT 20 Alkaline Phosphatase 120 H Troponin I Less than 0.02 L Total Protein 6.1 L Albumin 1.9 L TSH Thyroxine (T4) Hepatitis A IgM Ab Hep Bs Antigen Hep B Core IgM Ab Hep C IgG Ab 02/28/18 02/28/18 04:10 07:50 WBC RBC Hgb Hct MCV MCH MCHC RDW Plt Count MPV Neut % (Auto) Lymph % (Auto) [place] % (Auto) Eos % (Auto) Baso % (Auto) Neut # (Auto) Lymph # (Auto) [place] # (Auto) Eos # (Auto) Baso # (Auto) WBC Differential Differential Comment Sodium Potassium Chloride Carbon Dioxide Anion Gap BUN Creatinine Estimated GFR POC Glucose 130 H Random Glucose Calcium Total Bilirubin Direct Bilirubin Indirect Bilirubin AST ALT Alkaline Phosphatase Troponin I Total Protein Albumin TSH Thyroxine (T4) Hepatitis A IgM Ab Nonreactive Hep Bs Antigen Nonreactive Hep B Core IgM Ab Nonreactive Hep C IgG Ab Nonreactive - Imaging Impressions Liver Ultrasound 02/27/18 00:00 CONCLUSION: 1. Cirrhosis with small volume ascites. 2. Lack of visualization of the pancreas. Assessment and Plan - Plan This is a 72/M with h/o EtOH abuse admitted from for trauma //Trauma after a mechanical fall - L wrist XR showed distal radial and ulnar fracture, consult orthopedics, pain control - C-spine fax - awaiting input from neurosurgery - multiple rib fractures, pain control: robaxin prn, lidocaine patch, start norco, morphine switch to only for breakthrough, trauma is following = PT recommends rehab. Neurosurgery following. Pending MRI. Follow-up orthopedic recommendations for left wrist. //Atrial flutter - EKG showed atrial flutter, patient is asymptomatic, will start Metoprolol, check EKG again, trop x 2, TSH, FT4. Stop propranolol. = TSH within normal limits. = Heart rate elevated. Will increase metoprolol. Hold off on anticoagulation at this point. //r/o aspiration pneumonia - no LOC, CXR shows increased density left base, possible contusion vs consolidation, doubt pneumonia, could be contusion from fall/rib fx. No leukocytosis or SOB, afebrile, no ABx for now, Incentive spirometry. = No clinical signs of pneumonia at this time. Repeat CXR in a few days. //Bipolar disorder - on lithium, non-formulary, patient may take his own, asked RN to verify and have family bring his meds. = Pending lithium level. Patient denies being on lithium at home for the past 2 years. //liver cirrhosis - r/o cancer, <?>, check LFTs, US liver, hepatitis panel , patient has known fatty liver per due to EtOH abuse = Liver ultrasound shows cirrhosis with small volume ascites. Advised against alcohol. //Tobacco abuse-nicotine patch //Hyponatremia - hypovolemia likely cause, start NS, recheck BMP at am = Sodium stable. Continue to monitor. //EtOH abuse - watch out for withdrawal, start CIWA protocol, d/c librium //DVT PPx: SCDs, start pharmacological once cleared by surgery/trauma Transfer to [facility]. Discharge Planning: PT recommends rehab.
[2018-03-01] MEDS: Sod Chloride 0.9% Inj 1,000 ML IV.CONT SCH ×5 (06:32→21:54)
[2018-03-01] MEDS: Chlorhexidine Gluconate 2% 1 Pack (2 Cloths) TOPICAL SCH (06:33)
[2018-03-01] MEDS: Lidocaine 5% Patch T-DERMAL SCH (09:18)
[2018-03-01] MEDS: Metoprolol Tartrate 25 MG Tablet PO SCH ×2 (09:19→20:07)
[2018-03-01] MEDS: Famotidine PF Inj 20 MG/2 ML Vial IV.PUSH SCH ×2 (09:19→20:08)
[2018-03-01] MEDS: Senna/Docusate Sodium 8.6/50 MG Tablet PO SCH ×2 (09:19→20:07)
[2018-03-01] MEDS: Methocarbamol 500 MG Tablet PO PRN ×2 (09:19→20:15)
[2018-03-01 10:33] LABS: Baso # (Auto) 0.1 th/mm3 (0.0-0.2); Baso % (Auto) 0.7 % (0.0-2.0); Eos # (Auto) 0.1 th/mm3 (0.0-0.4); Eos % (Auto) 0.5 % (0.0-4.0); Hematocrit 36.5 % (39.0-51.0); Hemoglobin 12.3 gm/dL (13.0-17.0); Lymph % (Auto) 9.6 % (9.0-44.0); Mean Corpuscular HGB Conc 33.9 % (32.0-36.0); Mean Corpuscular Hemoglobin 31.3 pg (27.0-34.0); Mean Corpuscular Volume 92.4 fL (80.0-100.0); Mean Platelet Volume 9.4 fL (7.0-11.0); Mono # (Auto) 0.6 th/mm3 (0.0-0.9); Mono % (Auto) 5.5 % (0.0-8.0); Neut # (Auto) 8.5 th/mm3 (1.8-7.7); Neut % (Auto) 83.7 % (16.0-70.0); Platelet Count 199 th/mm3 (150-450); Red Blood Count 3.94 mil/mm3 (4.50-5.90); Red Cell Distribution Width 13.8 % (11.6-17.2); White Blood Count 10.2 th/mm3 (4.0-11.0)
[2018-03-01 10:54] LABS: Albumin 1.8 g/dL (3.4-5.0); Anion Gap 9 meq/L (5-15); Blood Urea Nitrogen 6 mg/dL (7-18); Calcium 7.4 mg/dL (8.5-10.1); Carbon Dioxide 22.4 meq/L (21.0-32.0); Chloride 106 meq/L (98-107); Glomerular Filtration Rate Greater Than 89 mL/min (>89); Glucose,Random 208 mg/dL (74-106); Magnesium 1.8 mg/dL (1.5-2.5); Phosphorus 2.7 mg/dL (2.5-4.9); Potassium 3.5 meq/L (3.5-5.1); Sodium 137 meq/L (136-145)
--- NOTE | 2018-03-01 12:19 | P.PNIM ---
Subjective Interval history: Reports pain is under control. Denies any chest pain or shortness of breath. Physical Exam Vital signs: Vital Signs 02/28/18 16:00 02/28/18 20:00 02/28/18 21:39 Temperature 98.0 F 97.1 F L Pulse Rate 112 H 106 H 104 H Respiratory Rate 18 20 Blood Pressure 157/70 H 109/60 Pulse Oximetry 96 95 03/01/18 00:00 03/01/18 00:13 03/01/18 04:00 Temperature 97.4 F L 97.5 F L Pulse Rate 103 H 101 H 76 Respiratory Rate 18 17 Blood Pressure 116/69 122/58 L Pulse Oximetry 98 97 03/01/18 04:21 03/01/18 08:00 Temperature 97.5 F L Pulse Rate 107 H 112 H Respiratory Rate 18 Blood Pressure 107/69 Pulse Oximetry 97 Intake & Output 02/28/18 03/01/18 03/01/18 18:59 06:59 18:59 Intake Total 1000 / 1000 Balance 1000 / 1000 Weight 83 kg Intake: IV 1000 / 1000 NS Inj 1,000 ML @ 100 mls/hr IV 1000 / 1000 .CONT .Q10H VIVIANE Rx#:[id number] Other: # Voids 6 Date of Last Bowel Movement 02/23/18 02/23/18 02/23/18 Narrative: GENERAL: Patient sitting up in bed. Appears comfortable. Cervical collar in place. Exam unchanged SKIN: Warm and dry. HEAD: Normocephalic. EYES: No scleral icterus. No injection or drainage. NECK: Supple, trachea midline. No JVD . CARDIOVASCULAR: Regular rate and rhythm without murmurs, gallops, or rubs. RESPIRATORY: Breath sounds equal bilaterally. No accessory muscle use. GASTROINTESTINAL: Abdomen soft, non-tender, nondistended. MUSCULOSKELETAL: No cyanosis, or edema. Left arm splinted. BACK: Nontender without obvious deformity. No CVA tenderness. - Urinary Catheter Management Indwelling Urethral Catheter Cath placed during this visit: yes, but has since been removed by the nurse Reason for continuing: Decision to DC catheter Insertion date: 02/27/18 Removal date: 02/28/18 Removal time: 11:30 Results - Labs CBC & Chem 7: 03/01/18 09:47 03/01/18 09:47 Laboratory Results - last 24 hr 02/28/18 03/01/18 03/01/18 14:20 00:18 06:24 WBC RBC Hgb Hct MCV MCH MCHC RDW Plt Count MPV Neut % (Auto) Lymph % (Auto) [place] % (Auto) Eos % (Auto) Baso % (Auto) Neut # (Auto) Lymph # (Auto) [place] # (Auto) Eos # (Auto) Baso # (Auto) WBC Differential Differential Comment Sodium Potassium Chloride Carbon Dioxide Anion Gap BUN Creatinine Estimated GFR POC Glucose 137 H 125 H Random Glucose Calcium Phosphorus Magnesium Albumin [place] Less than 0.1 L 03/01/18 03/01/18 09:47 09:47 WBC 10.2 RBC 3.94 L Hgb 12.3 L Hct 36.5 L MCV 92.4 MCH 31.3 MCHC 33.9 RDW 13.8 Plt Count 199 MPV 9.4 Neut % (Auto) 83.7 H Lymph % (Auto) 9.6 [place] % (Auto) 5.5 Eos % (Auto) 0.5 Baso % (Auto) 0.7 Neut # (Auto) 8.5 H Lymph # (Auto) 1.0 [place] # (Auto) 0.6 Eos # (Auto) 0.1 Baso # (Auto) 0.1 WBC Differential . Differential Comment Auto diff final Sodium 137 Potassium 3.5 Chloride 106 Carbon Dioxide 22.4 Anion Gap 9 BUN 6 L Creatinine 0.43 L Estimated GFR Greater than 89 POC Glucose Random Glucose 208 H Calcium 7.4 L* Phosphorus 2.7 Magnesium 1.8 Albumin 1.8 L [place] Assessment and Plan - Plan This is a 72/M with h/o EtOH abuse admitted from for trauma //Trauma after a mechanical fall - L wrist XR showed distal radial and ulnar fracture, consult orthopedics, pain control - C-spine fax - awaiting input from neurosurgery - multiple rib fractures, pain control: robaxin prn, lidocaine patch, start norco, morphine switch to only for breakthrough, trauma is following = PT recommends rehab. Neurosurgery following. Pending MRI. Follow-up orthopedic recommendations for left wrist. = Follow-up neurosurgery recommendations. //Atrial flutter - EKG showed atrial flutter, patient is asymptomatic, will start Metoprolol, check EKG again, trop x 2, TSH, FT4. Stop propranolol. = TSH within normal limits. = Heart rate elevated. Will increase metoprolol. Hold off on anticoagulation at this point. = 03/01. Heart rate continues elevated. Pending echocardiogram. Cardiology consult for new A. fib. //r/o aspiration pneumonia - no LOC, CXR shows increased density left base, possible contusion vs consolidation, doubt pneumonia, could be contusion from fall/rib fx. No leukocytosis or SOB, afebrile, no ABx for now, Incentive spirometry. = No clinical signs of pneumonia at this time. Repeat CXR in a few days. //Bipolar disorder - on lithium, non-formulary, patient may take his own, asked RN to verify and have family bring his meds. = Pending lithium level. Patient denies being on lithium at home for the past 2 years. = Undetectable lithium level. Has not been on lithium for 2 years. Patient does not appear to be in bipolar episode at this time. Denies any suicidal ideation. //liver cirrhosis - r/o cancer, <?>, check LFTs, US liver, hepatitis panel , patient has known fatty liver per due to EtOH abuse = Liver ultrasound shows cirrhosis with small volume ascites. Advised against alcohol. //Tobacco abuse-nicotine patch //Hyponatremia - hypovolemia likely cause, start NS, recheck BMP at am = Sodium stable. Continue to monitor. //EtOH abuse - watch out for withdrawal, start CIWA protocol, d/c librium //DVT PPx: SCDs, start pharmacological once cleared by surgery/trauma Transfer to [facility]. Discharge Planning: PT recommends rehab. Appreciate case management assistance. OT consult ordered.
[2018-03-01] MEDS: LITHIUM ASPARTATE PO SCH (16:07)
[2018-03-01] MEDS: dilTIAZem 30 MG Tablet PO SCH (21:53)
--- NOTE | 2018-03-01 22:14 | MB ---
cc: Wesley Cisneros DO DATE: 03/01/2018 REASON FOR CONSULTATION: Atrial fibrillation/atrial flutter. HISTORY OF PRESENT ILLNESS: Fausto Dunn is a 72-year-old male who presented to [facility] as a transfer from [facility] due to a trauma. He had a mechanical fall down 12 steps and sustained a left wrist fracture, questionable C-spine fracture, and multiple rib fractures. During his workup, he was found to have what appears to be atrial flutter with rapid ventricular response. He had been started on metoprolol, and this has been increased, but his heart rates have stayed rate around 100-110 beats per minute. I was asked to see him for this. In seeing him, he is not cooperative with his exam and is overall a poor historian. He states that he would like to be left alone and nothing done from a cardiac standpoint. Apparently, he has a history of alcohol abuse and drinks 6 shots of liquor per day per the history. PAST MEDICAL HISTORY: 1. Bipolar. 2. Hypertension. 3. Diabetes mellitus. 4. Gastroesophageal reflux disease. 5. Gallbladder disease. 6. Fatty liver disease from alcohol abuse. PAST SURGICAL HISTORY: Denies. ALLERGIES: NO KNOWN DRUG ALLERGIES. MEDICATIONS: [place] 30 mg t.i.d. FAMILY HISTORY: He denies sudden cardiac within the family. SOCIAL HISTORY: The patient smokes daily. He drinks 6 shots of hard alcohol daily. REVIEW OF SYSTEMS: Fourteen systems were reviewed including osteopathic. Pertinent positives and negatives above, otherwise negative. PHYSICAL EXAMINATION: VITAL SIGNS: Temperature 99.7, heart rate 107, blood pressure 128/66, respirations 18, pulse oximetry 97% on room air. GENERAL: The patient is sitting in bed comfortably with a cervical collar in place. He is alert and awake. HEENT: Extraocular muscles intact. Mucous membranes moist. NECK: Supple. No JVD at 45 degrees. No carotid bruits heard bilaterally. Carotid upstroke is brisk in nature. HEART: Regular but tachycardic. Positive first and second heart sounds. LUNGS: Clear to auscultation bilaterally. No wheezes, rales, or rhonchi. ABDOMEN: Soft, nontender, nondistended. No organomegaly noted. EXTREMITIES: No clubbing, cyanosis, or edema. Left arm is splinted. NEUROLOGIC: The patient unwilling to undergo exam but appears to move extremities as necessary. SKIN: Warm, dry, and intact. LABORATORY DATA: Hemoglobin 12.3, hematocrit 36.5, platelets 199. Potassium 3.5, BUN 6, creatinine 0.43. Troponin less than 0.02. TSH 2.08. Electrocardiogram (03/01/2018 at 1332): Atrial flutter with 2:1 block, nonspecific ST-T wave changes. IMPRESSIONS: 1. Atrial fibrillation with rapid ventricular response. 2. Mechanical fall. 3. Alcohol abuse. 4. Fatty liver disease due to alcohol abuse. 5. Tobacco abuse. 6. Multiple fractures due to mechanical fall. 7. Bipolar disorder. RECOMMENDATIONS: 1. Mr. Dunn presented as a trauma alert and has been evaluated by trauma and neurosurgical teams. 2. He is noted to have probable atrial flutter and started on metoprolol therapy. I will plan on decreasing this and trying to start him on Cardizem to try to lower his overall heart rate. 3. We will attempt to check a 2-D echo, but the patient has been noncompliant with medical therapies thus far. 4. Would not consider him an anticoagulation candidate due to his fall as well as trauma and his alcohol abuse history. 5. I spoke to him for greater than 3 minutes about tobacco cessation. 6. Further recommendations will be made based on the hospital course. Thank you for allowing me to see Fausto Dunn. If there are any questions, please do not hesitate to call. DO PATIENCE Santos/kayli , 09:26 PM , 09:34 PM
--- NOTE | 2018-03-01 23:44 | ECG ---
Date Performed: 03/01/2018 Time Performed: 13:32:31 PTAGE: 72 years EKG: ATRIAL FLUTTER/TACHYCARDIA WITH RAPID VENTRICULAR RESPONSE WITH ABERRANT CONDUCTION OR VENT RICULAR PREMATURE COMPLEXES MODERATE ST DEPRESSION ABNORMAL ECG PREVIOUS TRACING : 02/27/2018 09.41 Since the previous tracing, no significant change noted DOCTOR: Wesley Cisneros Interpretating Date/Time 03/01/2018 23:44:30
[2018-03-02] MEDS: Sod Chloride 0.9% Inj 1,000 ML IV.CONT SCH ×4 (01:58→17:11)
[2018-03-02] MEDS: Chlorhexidine Gluconate 2% 1 Pack (2 Cloths) TOPICAL SCH (03:22)
[2018-03-02] MEDS: dilTIAZem 30 MG Tablet PO SCH ×4 (08:07→22:18)
[2018-03-02] MEDS: Metoprolol Tartrate 25 MG Tablet PO SCH ×2 (08:07→22:18)
[2018-03-02] MEDS: Senna/Docusate Sodium 8.6/50 MG Tablet PO SCH ×2 (08:07→22:20)
[2018-03-02] MEDS: Methocarbamol 500 MG Tablet PO PRN (08:07)
[2018-03-02] MEDS: Lidocaine 5% Patch T-DERMAL SCH (08:08)
[2018-03-02] MEDS: Famotidine PF Inj 20 MG/2 ML Vial IV.PUSH SCH ×2 (08:08→22:20)
--- NOTE | 2018-03-02 08:52 | P.PN ---
Subjective Interval history: Follow-up visit for traumatic fall resulting in left wrist fracture, C-spine fracture, history of A. fib, alcohol abuse. Patient seen and examined with at bedside. He denies any chills, N/V/D, abdominal pain, cough, SOB, headache or chest pain. He reports constipation, has not had a BM since he arrived. reports patient will have Milk of mag frequently at home for BM. Patient states that he would like to go home instead of rehab. Spent time discussing with and patient the benefits of rehab. Patient also refusing CT and MRI imaging. States that these will make him very claustrophobic. Physical Exam Vital signs: Vital Signs 03/01/18 12:00 03/01/18 15:06 03/01/18 16:00 Temperature 97.2 F L 99.7 F H Pulse Rate 105 H 107 H Respiratory Rate 18 16 18 Blood Pressure 96/55 L 128/66 Pulse Oximetry 98 97 03/01/18 20:00 03/01/18 23:49 03/02/18 00:00 Temperature 98.5 F 98.9 F Pulse Rate 109 H 89 92 H Respiratory Rate 18 19 Blood Pressure 112/66 121/61 Pulse Oximetry 95 95 03/02/18 03:00 03/02/18 04:00 03/02/18 07:57 Temperature 98.5 F Pulse Rate 107 H 114 H Respiratory Rate 16 18 Blood Pressure 124/58 L Pulse Oximetry 96 03/02/18 08:00 Temperature 97.2 F L Pulse Rate 94 H Respiratory Rate 18 Blood Pressure 145/73 H Pulse Oximetry 96 Intake & Output 03/01/18 03/02/18 03/02/18 18:59 06:59 18:59 Intake Total 1480 / 1480 1000 / 1000 Balance 1480 / 1480 1000 / 1000 Weight 83 kg Intake: IV 1000 / 1000 1000 / 1000 NS Inj 1,000 ML @ 84 mls/hr IV. 1000 / 1000 1000 / 1000 CONT .[id number] VIVIANE Rx#:[id number] Oral 480 / 480 Other: # Voids 3 2 Date of Last Bowel Movement 02/23/18 02/23/18 02/27/18 Narrative: GENERAL: Patient sitting up in bed. Appears comfortable. Cervical collar in place. SKIN: Warm and dry. HEAD: Normocephalic. EYES: No scleral icterus. No injection or drainage. NECK: Supple, trachea midline. CARDIOVASCULAR: Regular rate and rhythm without murmurs, gallops, or rubs. RESPIRATORY: Breath sounds equal bilaterally. No accessory muscle use. GASTROINTESTINAL: Abdomen soft, non-tender, nondistended. + Bowel sounds. MUSCULOSKELETAL: No cyanosis, or edema. Left arm splinted, + finger movement, capillary refill less than 3 seconds, normal sensation. BACK: Nontender without obvious deformity. No CVA tenderness. - Urinary Catheter Management Indwelling Urethral Catheter Cath placed during this visit: yes, but has since been removed by the nurse Reason for continuing: Decision to DC catheter Insertion date: 02/27/18 Removal date: 02/28/18 Removal time: 11:30 Results - Labs CBC & Chem 7: 03/01/18 09:47 03/01/18 09:47 Laboratory Results - last 24 hr 03/01/18 03/01/18 03/01/18 09:47 09:47 12:13 WBC 10.2 RBC 3.94 L Hgb 12.3 L Hct 36.5 L MCV 92.4 MCH 31.3 MCHC 33.9 RDW 13.8 Plt Count 199 MPV 9.4 Neut % (Auto) 83.7 H Lymph % (Auto) 9.6 [place] % (Auto) 5.5 Eos % (Auto) 0.5 Baso % (Auto) 0.7 Neut # (Auto) 8.5 H Lymph # (Auto) 1.0 [place] # (Auto) 0.6 Eos # (Auto) 0.1 Baso # (Auto) 0.1 WBC Differential . Differential Comment Auto diff final Sodium 137 Potassium 3.5 Chloride 106 Carbon Dioxide 22.4 Anion Gap 9 BUN 6 L Creatinine 0.43 L Estimated GFR Greater than 89 POC Glucose 192 H Random Glucose 208 H Calcium 7.4 L* Phosphorus 2.7 Magnesium 1.8 Albumin 1.8 L 03/01/18 03/02/18 03/02/18 17:56 00:55 06:16 WBC RBC Hgb Hct MCV MCH MCHC RDW Plt Count MPV Neut % (Auto) Lymph % (Auto) [place] % (Auto) Eos % (Auto) Baso % (Auto) Neut # (Auto) Lymph # (Auto) [place] # (Auto) Eos # (Auto) Baso # (Auto) WBC Differential Differential Comment Sodium Potassium Chloride Carbon Dioxide Anion Gap BUN Creatinine Estimated GFR POC Glucose 142 H 159 H 150 H Random Glucose Calcium Phosphorus Magnesium Albumin Assessment and Plan - Plan This is a 72/M with h/o EtOH abuse admitted from for trauma Trauma after a mechanical fall - L wrist XR showed distal radial and ulnar fracture, orthopedic services saw and evaluated patient, recommended nonoperative treatment, maintain splint, follow-up with orthopedic clinic after discharge. -Left-sided rib fractures without pneumothorax, small left and trace right pleural effusion noted on CT from 02/26. Continue Robaxin, lidocaine patch. C-spine fractures-neurosurgery following, recommends to continue c-collar. -Neurosurgery has also recommended MRI of cervical spine as well as CTA. Patient has refused exams due to claustrophobia, reluctant to taking any medications for comfort during exam. -Pain control with p.o. Ripley -PT following, recommends physical therapy and rehab, patient reluctant to go to rehab CT spine significant for spondylosis throughout entire spine, vertebral bodies involving C5, C6, and C7 Atrial flutter - EKG showed atrial flutter -TSH within normal limits. -Initially treated with beta-cristina for rate control -Cardiology consulted, greatly appreciate assistance. -Patient seen and evaluated by Dr. Cisneros who recommends holding off on anticoagulation due to recent trauma and poor blood thinner candidate -Pending 2D echo -Beta-cristina discontinued, switched over to p.o. Cardizem for rate control Questionable aspiration pneumonia -CT completed on 02/26 noted focal groundglass noted in left upper lobe nonspecific could be infectious or inflammatory nature. Scattered solid pulmonary nodules are present, follow-up per Fleischner criteria. - CXR shows increased density left base, possible contusion vs consolidation, doubt pneumonia, could be contusion from fall/rib fx. No leukocytosis or SOB, afebrile, no ABx for now, Incentive spirometry. -Patient continues to be asymptomatic. Repeat CXR in a few days. Bipolar disorder - on lithium, non-formulary -Patient denies being on lithium at home for the past 2 years. - Undetectable lithium level. Has not been on lithium for 2 years. Patient does not appear to be in bipolar episode at this time. Denies any suicidal ideation. liver cirrhosis, likely secondary to alcohol abuse -CT scan completed on 02/26 nodes hepatic cirrhosis with mass in yanelis hepatis, neurologist at that time recommended MRI -CT of abdomen completed on 02/26 revealed retroperitoneal lymphadenopathy of the abdomen, greatest within the upper abdomen, with multiple enlarged heterogeneous lymph nodes up to 2.6 cm in the yanelis hepatis, suspicious for malignancy, new compared with imaging from 12/28/2002. Increased enlargement of left lobe and liver with diffuse heterogeneous appearance and lack of opacification of the left portal vein, suspicious for infiltrative hepatic malignancy, with increased diffuse nodularity of the liver consistent with chronic hepatocellular disease. Nonemergent MRI of abdomen without and with contrast for evaluation of hepatic mass is recommended. -LFTs within normal limits, hepatitis panel negative - patient has known fatty liver per due to EtOH abuse - Liver ultrasound shows cirrhosis with small volume ascites. Advised against alcohol. -Recommend follow-up once discharged, this was discussed with patient and . -Currently asymptomatic, no abdominal pain, nausea, vomiting. Tobacco abuse-nicotine patch Hyponatremia - hypovolemia likely cause -And a stable EtOH abuse - watch out for withdrawal, CIWA protocol DVT PPx: SCDs, start pharmacological once cleared by surgery/trauma Discussed Condition With: Discussed with patient, RN, at bedside. Discharge Planning: Will need cardiology, neurosurgery clearance.
[2018-03-02] MEDS ORDERED: Bisacodyl 10 MG Supp RECTAL PRN (10:00)
--- NOTE | 2018-03-02 15:38 | ECHRPT ---
Indication: CONCLUSIONS The left ventricular systolic function is normal with an estimated ejection fraction in the range of 55-60%. Normal left ventricular size. Mild concentric left ventricular hypertrophy. No definite regional wall motion abnormalities are present. No definite valvular abnormalities. The aortic valve is not well visualized. BP: / HR: Rhythm: Atrial fibrillation MEASUREMENTS (Male / Female) Normal Values Technical Quality:Poor 2D ECHO LV Diastolic Diameter PLAX 4.1 cm 4.2 - 5.9 / 3.9 - 5.3 cm LV Systolic Diameter PLAX 3.1 cm IVS Diastolic Thickness 1.5 cm 0.6 - 1.0 / 0.6 - 0.9 cm LVPW Diastolic Thickness 1.4 cm 0.6 - 1.0 / 0.6 - 0.9 cm LV Relative Wall Thickness 0.7 LVOT Diameter 2.0 cm LV Ejection Fraction MOD 4C 59.2 % LV Ejection Fraction 4C AL 59.5 % M-MODE Aortic Root Diameter MM 3.3 cm LA Systolic Diameter MM 3.9 cm LA Ao Ratio MM 1.2 AV Cusp Separation MM 2.4 cm DOPPLER AV Peak Velocity 82.8 cm/s AV Peak Gradient 2.7 mmHg AI Peak Velocity 85.9 cm/s AI Peak Gradient 3.0 mmHg AI Pressure Half Time 46.0 ms LVOT Peak Velocity 61.2 cm/s LVOT Peak Gradient 1.5 mmHg AV Area Cont Eq pk 2.3 cm FINDINGS LEFT VENTRICLE The left ventricular systolic function is normal with an estimated ejection fraction in the range of 55-60%. Normal left ventricular size. Mild concentric left ventricular hypertrophy. No definite regional wall motion abnormalities are present. RIGHT VENTRICLE Normal right ventricular size and systolic function. LEFT ATRIUM The left atrial size is normal. RIGHT ATRIUM The right atrial size is normal. ATRIAL SEPTUM Normal atrial septal thickness without atrial level shunting by limited color doppler interrogation. AORTA The aortic root and proximal ascending aorta are normal in size on limited imaging. MITRAL VALVE Structurally normal mitral valve. No mitral valve stenosis or regurgitation. AORTIC VALVE The aortic valve is not well visualized. TRICUSPID VALVE Structurally normal tricuspid valve. No tricuspid valve stenosis or regurgitation. PULMONARY VALVE The pulmonary valve is not well visualized. VESSELS The inferior vena cava is normal in size. PERICARDIUM No pericardial effusion. Moisés Rogers MD (Electronically Signed) Final Date:02 March 2018 12:00
--- NOTE | 2018-03-02 17:53 | P.PNNS ---
Subjective Interval history: Pt awakens to voice. He denies neck pain or radiculopathy in UEs. He complains of left arm pain and it is bandaged and splinted. He is refusing an MRI of his cervical spine and CTA of the brain and relates to me he is willing to accept risk of an unstable neck or a cerebral aneurysm that could involve risk of morbidity and mortality. He does state however he will be complaint with the cervical collar on at all times. <Claernce Dave - Last Filed: 03/02/18 17:53> Physical Exam Vital signs: Vital Signs 03/01/18 20:00 03/01/18 23:49 03/02/18 00:00 Temperature 98.5 F 98.9 F Pulse Rate 109 H 89 92 H Respiratory Rate 18 19 Blood Pressure 112/66 121/61 Pulse Oximetry 95 95 03/02/18 03:00 03/02/18 04:00 03/02/18 07:57 Temperature 98.5 F Pulse Rate 107 H 114 H Respiratory Rate 16 18 Blood Pressure 124/58 L Pulse Oximetry 96 03/02/18 08:00 03/02/18 10:44 03/02/18 12:00 Temperature 97.2 F L 97.2 F L Pulse Rate 94 H 97 H Respiratory Rate 18 18 18 Blood Pressure 145/73 H 109/58 L Pulse Oximetry 96 96 03/02/18 14:48 03/02/18 16:00 Temperature 97.3 F L Pulse Rate 96 H Respiratory Rate 18 12 Blood Pressure 100/62 Pulse Oximetry 98 Intake & Output 03/01/18 03/02/18 03/02/18 18:59 06:59 18:59 Intake Total 1480 / 1480 1000 / 1000 Balance 1480 / 1480 1000 / 1000 Weight 83 kg Intake: IV 1000 / 1000 1000 / 1000 NS Inj 1,000 ML @ 84 mls/hr IV. 1000 / 1000 1000 / 1000 CONT .[id number] [facility] Rx#:[id number] Oral 480 / 480 Other: # Voids 3 2 Date of Last Bowel Movement 02/23/18 02/23/18 02/27/18 - Constitutional no acute distress - Routine HEENT Exam Head: Present: normocephalic, atraumatic Eye: Present: PERRL. Absent: conjunctival icterus ENT: Present: oropharynx clear - Routine Neck Exam Comments: Renea Bettina cervical collar in place. - Routine Respiratory Exam Present: CTA bilaterally. Absent: respiratory distress, rhonchi, wheezes - Routine Cardiovascular Exam Present: RRR, S1, S2. Absent: murmur - Routine Abdominal Exam Present: normoactive bowel sounds. Absent: tenderness, distended, firm - Routine Skin Exam Absent: cyanosis, erythema - Routine Neurological Exam Present: motor deficit (Left forearm splinted and bandaged.), normal speech. Absent: sensory deficit - Routine Psychiatric Exam Present: cooperative. Absent: agitated - Urinary Catheter Management Indwelling Urethral Catheter Cath placed during this visit: yes, but has since been removed by the nurse Reason for continuing: Decision to DC catheter Insertion date: 02/27/18 Removal date: 02/28/18 Removal time: 11:30 <Clarence Dave - Last Filed: 03/02/18 17:53> Vital signs: Vital Signs 03/01/18 20:00 03/01/18 23:49 03/02/18 00:00 Temperature 98.5 F 98.9 F Pulse Rate 109 H 89 92 H Respiratory Rate 18 19 Blood Pressure 112/66 121/61 Pulse Oximetry 95 95 03/02/18 03:00 03/02/18 04:00 03/02/18 07:57 Temperature 98.5 F Pulse Rate 107 H 114 H Respiratory Rate 16 18 Blood Pressure 124/58 L Pulse Oximetry 96 03/02/18 08:00 03/02/18 10:44 03/02/18 12:00 Temperature 97.2 F L 97.2 F L Pulse Rate 94 H 97 H Respiratory Rate 18 18 18 Blood Pressure 145/73 H 109/58 L Pulse Oximetry 96 96 03/02/18 14:48 03/02/18 16:00 Temperature 97.3 F L Pulse Rate 96 H Respiratory Rate 18 12 Blood Pressure 100/62 Pulse Oximetry 98 Intake & Output 03/01/18 03/02/18 03/02/18 18:59 06:59 18:59 Intake Total 1480 / 1480 1000 / 1000 Balance 1480 / 1480 1000 / 1000 Weight 83 kg Intake: IV 1000 / 1000 1000 / 1000 NS Inj 1,000 ML @ 84 mls/hr IV. 1000 / 1000 1000 / 1000 CONT .[id number] [facility] Rx#:[id number] Oral 480 / 480 Other: # Voids 3 2 Date of Last Bowel Movement 02/23/18 02/23/18 02/27/18 - Urinary Catheter Management Indwelling Urethral Catheter Cath placed during this visit: no <Robbie Laird - Last Filed: 03/02/18 18:12> Assessment and Plan - Assessment (1) Fracture of wrist Code(s): S62.109A - Fracture of unspecified carpal bone, unspecified wrist, initial encounter for closed fracture Status: Acute Qualifiers: Encounter type: initial encounter Fracture type: closed Laterality: left Qualified Code(s): S62.102A - Fracture of unspecified carpal bone, left wrist , initial encounter for closed fracture (2) Fracture, ribs Code(s): S22.39XA - Fracture of one rib, unspecified side, initial encounter for closed fracture Status: Acute Qualifiers: Encounter type: initial encounter Rib fracture type: multiple ribs Fracture type: closed Laterality: left Qualified Code(s): S22.42XA - Multiple fractures of ribs, left side, initial encounter for closed fracture (3) Fracture multiple cervical vertebra-closed Code(s): S12.9XXA - Fracture of neck, unspecified, initial encounter Status: Acute Qualifiers: Encounter type: initial encounter Qualified Code(s): S12.9XXA - Fracture of neck, unspecified, initial encounter (4) Fracture of thoracic spine Code(s): S22.009A - Unspecified fracture of unspecified thoracic vertebra, initial encounter for closed fracture Status: Acute Qualifiers: Encounter type: initial encounter Thoracic vertebra fracture level: T1 Fracture type: closed Fracture morphology: other fracture Qualified Code(s) : S22.018A - Other fracture of first thoracic vertebra, initial encounter for closed fracture - Plan Imaging: Ct head: negative for intracranial blood but has a mixed density globular 1 x 1.75 cm mesial frontal mass adjacent to the right A2 Ct C spine: significant spondylosis throughout the entire spine. vertebral body fractures involving the C5, C6, and C7. C7 with wedge deformity. without any significant cervical canal stenosis. Also with C4, C5 spinous process fractures. noted to have a mild kyphotic curve with the apex at C6-7 which is likely chronic/degenerative in nature A/P: 72 yo s/p fall with multiple cervical spine fractures and likely incidental finding on CT head Cervical spine fractures -recommend aspen collar for patient comfort -recommend MRI cervical spine to rule out any ligamentous injury. Kyphotic wedge at C6-7 is likely chronic/degenerative in nature but due to diffuse spondylosis/ankylosis spondylitis and adjacent vertebral body fractures with possible level arm effect, would obtain further imaging Pt refuses MRI cervical spine and is willing to accept risk of ligamentous injury which could make his neck unstable and risk of further injury including spinal cord injury. He states he will be complaint with cervical collar. He will need follow up x-rays in 6 weeks with follow up. Mesial frontal/interhemispheric mass -not present on CT head from 16 -recommend CTA head to rule out vascular malformation Pt refuses CTA head and is willing to accept risk of vascular malformation or aneurysm which if bleeds could result in significant morbidity or mortality. <Clarence Dave - Last Filed: 03/02/18 17:53> - Attending Attestation The exam, history, and the medical decision-making described in the above note were completed with the assistance of the mid-level provider. I reviewed and agree with the findings presented. I attest that I had a [id number] encounter with the patient on the same day, and personally performed and documented my assessment and findings in the medical record. <Robbie Laird - Last Filed: 03/02/18 18:12>
--- NOTE | 2018-03-02 22:34 | P.PNCA ---
Subjective Interval history: No events overnight Heart rates better controlled on Cardizem, blood pressure borderline but stable Physical Exam Vital signs: Vital Signs 03/01/18 23:49 03/02/18 00:00 03/02/18 03:00 Temperature 98.9 F Pulse Rate 89 92 H Respiratory Rate 19 16 Blood Pressure 121/61 Pulse Oximetry 95 03/02/18 04:00 03/02/18 07:57 03/02/18 08:00 Temperature 98.5 F 97.2 F L Pulse Rate 107 H 114 H 94 H Respiratory Rate 18 18 Blood Pressure 124/58 L 145/73 H Pulse Oximetry 96 96 03/02/18 10:44 03/02/18 12:00 03/02/18 14:48 Temperature 97.2 F L Pulse Rate 97 H Respiratory Rate 18 18 18 Blood Pressure 109/58 L Pulse Oximetry 96 03/02/18 16:00 Temperature 97.3 F L Pulse Rate 96 H Respiratory Rate 12 Blood Pressure 100/62 Pulse Oximetry 98 Intake & Output 03/02/18 03/02/18 03/03/18 06:59 18:59 06:59 Intake Total 1000 / 1000 880 / 880 Balance 1000 / 1000 880 / 880 Weight 83 kg Intake: IV 1000 / 1000 NS Inj 1,000 ML @ 84 mls/hr IV. 1000 / 1000 CONT .[id number] [facility] Rx#:[id number] Oral 880 / 880 Other: # Voids 2 2 Date of Last Bowel Movement 02/23/18 02/27/18 # Bowel Movements 1 Narrative: GENERAL: Patient sitting up in bed. Appears comfortable. Cervical collar in place. SKIN: Warm and dry. HEAD: Normocephalic. EYES: No scleral icterus. No injection or drainage. NECK: Supple, trachea midline. CARDIOVASCULAR: Irregularly irregular without murmurs, gallops, or rubs. RESPIRATORY: Breath sounds equal bilaterally. No accessory muscle use. GASTROINTESTINAL: Abdomen soft, non-tender, nondistended. + Bowel sounds. MUSCULOSKELETAL: No cyanosis, or edema. Left arm splinted, + finger movement, capillary refill less than 3 seconds, normal sensation. BACK: Nontender without obvious deformity. No CVA tenderness. - Urinary Catheter Management Indwelling Urethral Catheter Cath placed during this visit: yes, but has since been removed by the nurse Reason for continuing: Decision to DC catheter Insertion date: 02/27/18 Removal date: 02/28/18 Removal time: 11:30 Assessment and Plan - Assessment (1) Afib Code(s): I48.91 - Unspecified atrial fibrillation Status: Acute (2) Fracture of wrist Code(s): S62.109A - Fracture of unspecified carpal bone, unspecified wrist, initial encounter for closed fracture Status: Acute (3) Fracture, ribs Code(s): S22.39XA - Fracture of one rib, unspecified side, initial encounter for closed fracture Status: Acute (4) Fracture multiple cervical vertebra-closed Code(s): S12.9XXA - Fracture of neck, unspecified, initial encounter Status: Acute (5) Fracture of thoracic spine Code(s): S22.009A - Unspecified fracture of unspecified thoracic vertebra, initial encounter for closed fracture Status: Acute - Plan 1) Mechanical fall with multiple fractures Per trauma/neurosurgery 2) Aflutter Rates better controlled on Cardizem Due to borderline blood pressure, will stop BB therapy and increase Cardizem Not an anticoagulation candidate due to his fall, as well as sustained injuries and alcohol abuse history 3) ETOH abuse 4) Tobacco abuse 5) EF 55-60% by echo (2) Fracture of wrist Qualifiers: Encounter type: initial encounter Fracture type: closed Laterality: left Qualified Code(s): S62.102A - Fracture of unspecified carpal bone, left wrist, initial encounter for closed fracture (3) Fracture, ribs Qualifiers: Encounter type: initial encounter Rib fracture type: multiple ribs Fracture type: closed Laterality: left Qualified Code(s): S22.42XA - Multiple fractures of ribs, left side, initial encounter for closed fracture (4) Fracture multiple cervical vertebra-closed Qualifiers: Encounter type: initial encounter Qualified Code(s): S12.9XXA - Fracture of neck, unspecified, initial encounter (5) Fracture of thoracic spine Qualifiers: Encounter type: initial encounter Thoracic vertebra fracture level: T1 Fracture type: closed Fracture morphology: other fracture Qualified Code(s): S22.018A - Other fracture of first thoracic vertebra, initial encounter for closed fracture
[2018-03-03] MEDS: Chlorhexidine Gluconate 2% 1 Pack (2 Cloths) TOPICAL SCH (04:00)
[2018-03-03] MEDS: Sod Chloride 0.9% Inj 1,000 ML IV.CONT SCH ×4 (06:23→15:33)
[2018-03-03] MEDS: Senna/Docusate Sodium 8.6/50 MG Tablet PO SCH (08:13)
[2018-03-03] MEDS: dilTIAZem 60 MG Tablet PO SCH ×2 (08:13→12:10)
[2018-03-03] MEDS: Lidocaine 5% Patch T-DERMAL SCH (08:14)
[2018-03-03] MEDS: Famotidine PF Inj 20 MG/2 ML Vial IV.PUSH SCH (08:14)
[2018-03-03] MEDS: Methocarbamol 500 MG Tablet PO PRN (08:14)
--- NOTE | 2018-03-03 10:47 | P.PN ---
Subjective Interval history: Follow-up visit for traumatic fall resulting in left wrist fracture, C-spine fracture, history of A. fib, alcohol abuse. Patient is seen and examined sitting up on recliner with at bedside this morning. Patient denies any dizziness, lightheadedness, headache, fevers, chills, nausea, vomiting, diarrhea , or chest pain. Patient reports he had a bowel movement yesterday. Discussed with Dr. Cisneros and RN, patient and okay with transfer to [facility] for ongoing rehab. Physical Exam Vital signs: Vital Signs 03/02/18 12:00 03/02/18 14:48 03/02/18 16:00 Temperature 97.2 F L 97.3 F L Pulse Rate 97 H 96 H Respiratory Rate 18 18 12 Blood Pressure 109/58 L 100/62 Pulse Oximetry 96 98 03/02/18 20:00 03/03/18 00:00 03/03/18 04:00 Temperature 98.7 F 98.2 F 98.2 F Pulse Rate 86 92 H 99 H Respiratory Rate 16 17 17 Blood Pressure 112/58 L 113/65 133/91 H Pulse Oximetry 97 96 95 03/03/18 08:00 03/03/18 08:44 Temperature 97.2 F L Pulse Rate 94 H Respiratory Rate 18 18 Blood Pressure 129/64 Pulse Oximetry 94 L Intake & Output 03/02/18 03/03/18 03/03/18 18:59 06:59 18:59 Intake Total 880 / 880 Balance 880 / 880 Intake: Oral 880 / 880 Other: # Voids 2 Date of Last Bowel Movement 02/27/18 03/02/18 # Bowel Movements 1 - Urinary Catheter Management Indwelling Urethral Catheter Cath placed during this visit: yes, but has since been removed by the nurse Reason for continuing: Decision to DC catheter Insertion date: 02/27/18 Removal date: 02/28/18 Removal time: 11:30 Results - Labs CBC & Chem 7: 03/01/18 09:47 03/01/18 09:47 Assessment and Plan - Plan This is a 72/M with h/o EtOH abuse admitted from for trauma Trauma after a mechanical fall - L wrist XR showed distal radial and ulnar fracture, orthopedic services saw and evaluated patient, recommended nonoperative treatment, maintain splint, follow-up with orthopedic clinic after discharge. -Left-sided rib fractures without pneumothorax, small left and trace right pleural effusion noted on CT from 02/26. Continue Robaxin, lidocaine patch. C-spine fractures-neurosurgery following, recommends to continue c-collar. -Neurosurgery has also recommended MRI of cervical spine as well as CTA. Patient has refused exams due to claustrophobia, reluctant to taking any medications for comfort during exam. -Pain control with p.o. [place] -PT following, recommends physical therapy and rehab, patient reluctant to go to rehab CT spine significant for spondylosis throughout entire spine, vertebral bodies involving C5, C6, and C7 Atrial flutter - EKG showed atrial flutter -TSH within normal limits. -Initially treated with beta-cristina for rate control -Cardiology consulted, greatly appreciate assistance. -Patient seen and evaluated by Dr. Cisneros who recommends holding off on anticoagulation due to recent trauma and poor blood thinner candidate -Pending 2D echo -Beta-cristina discontinued, switched over to p.o. Cardizem for rate control Questionable aspiration pneumonia -CT completed on 02/26 noted focal groundglass noted in left upper lobe nonspecific could be infectious or inflammatory nature. Scattered solid pulmonary nodules are present, follow-up per Fleischner criteria. - CXR shows increased density left base, possible contusion vs consolidation, doubt pneumonia, could be contusion from fall/rib fx. No leukocytosis or SOB, afebrile, no ABx for now, Incentive spirometry. -Patient continues to be asymptomatic. Repeat CXR in a few days. Bipolar disorder - on lithium, non-formulary -Patient denies being on lithium at home for the past 2 years. - Undetectable lithium level. Has not been on lithium for 2 years. Patient does not appear to be in bipolar episode at this time. Denies any suicidal ideation. liver cirrhosis, likely secondary to alcohol abuse -CT scan completed on 02/26 nodes hepatic cirrhosis with mass in yanelis hepatis, neurologist at that time recommended MRI -CT of abdomen completed on 02/26 revealed retroperitoneal lymphadenopathy of the abdomen, greatest within the upper abdomen, with multiple enlarged heterogeneous lymph nodes up to 2.6 cm in the yanelis hepatis, suspicious for malignancy, new compared with imaging from 12/28/2002. Increased enlargement of left lobe and liver with diffuse heterogeneous appearance and lack of opacification of the left portal vein, suspicious for infiltrative hepatic malignancy, with increased diffuse nodularity of the liver consistent with chronic hepatocellular disease. Nonemergent MRI of abdomen without and with contrast for evaluation of hepatic mass is recommended. -LFTs within normal limits, hepatitis panel negative - patient has known fatty liver per due to EtOH abuse - Liver ultrasound shows cirrhosis with small volume ascites. Advised against alcohol. -Recommend follow-up once discharged, this was discussed with patient and . -Currently asymptomatic, no abdominal pain, nausea, vomiting. Tobacco abuse-nicotine patch Hyponatremia - hypovolemia likely cause -And a stable EtOH abuse - watch out for withdrawal, CIWA protocol DVT PPx: SCDs, start pharmacological once cleared by surgery/trauma Discharge Planning: Will need cardiology, neurosurgery clearance.
--- NOTE | 2018-03-03 12:25 | P.PNCA ---
Subjective Interval history: Doing well, up to the chair No complaints Heart rates in the 90s Physical Exam Vital signs: Vital Signs 03/02/18 14:48 03/02/18 16:00 03/02/18 20:00 Temperature 97.3 F L 98.7 F Pulse Rate 96 H 86 Respiratory Rate 18 12 16 Blood Pressure 100/62 112/58 L Pulse Oximetry 98 97 03/03/18 00:00 03/03/18 04:00 03/03/18 08:00 Temperature 98.2 F 98.2 F 97.2 F L Pulse Rate 92 H 99 H 94 H Respiratory Rate 17 17 18 Blood Pressure 113/65 133/91 H 129/64 Pulse Oximetry 96 95 94 L 03/03/18 08:44 Temperature Pulse Rate Respiratory Rate 18 Blood Pressure Pulse Oximetry Intake & Output 03/02/18 03/03/18 03/03/18 18:59 06:59 18:59 Intake Total 880 / 880 1000 / 1000 Balance 880 / 880 1000 / 1000 Intake: IV 1000 / 1000 NS Inj 1,000 ML @ 84 mls/hr IV. 1000 / 1000 CONT .[id number] [facility] Rx#:[id number] Oral 880 / 880 Other: # Voids 2 Date of Last Bowel Movement 02/27/18 03/02/18 # Bowel Movements 1 Narrative: GENERAL: Patient sitting up in bed. Appears comfortable. Cervical collar in place. SKIN: Warm and dry. HEAD: Normocephalic. EYES: No scleral icterus. No injection or drainage. NECK: Supple, trachea midline. CARDIOVASCULAR: Irregularly irregular without murmurs, gallops, or rubs. RESPIRATORY: Breath sounds equal bilaterally. No accessory muscle use. GASTROINTESTINAL: Abdomen soft, non-tender, nondistended. + Bowel sounds. MUSCULOSKELETAL: No cyanosis, or edema. Left arm splinted, + finger movement, capillary refill less than 3 seconds, normal sensation. BACK: Nontender without obvious deformity. No CVA tenderness. - Urinary Catheter Management Indwelling Urethral Catheter Cath placed during this visit: yes, but has since been removed by the nurse Reason for continuing: Decision to DC catheter Insertion date: 02/27/18 Removal date: 02/28/18 Removal time: 11:30 Assessment and Plan - Assessment (1) Afib Code(s): I48.91 - Unspecified atrial fibrillation Status: Acute (2) Fracture of wrist Code(s): S62.109A - Fracture of unspecified carpal bone, unspecified wrist, initial encounter for closed fracture Status: Acute (3) Fracture, ribs Code(s): S22.39XA - Fracture of one rib, unspecified side, initial encounter for closed fracture Status: Acute (4) Fracture multiple cervical vertebra-closed Code(s): S12.9XXA - Fracture of neck, unspecified, initial encounter Status: Acute (5) Fracture of thoracic spine Code(s): S22.009A - Unspecified fracture of unspecified thoracic vertebra, initial encounter for closed fracture Status: Acute - Plan 1) Mechanical fall with multiple fractures Per trauma/neurosurgery 2) Aflutter Rates better controlled on Cardizem Change Cardizem to CD 240mg Not an anticoagulation candidate due to his fall, as well as sustained injuries and alcohol abuse history Discussed with , she's in agreement ASA 81mg daily 3) ETOH abuse 4) Tobacco abuse 5) EF 55-60% by echo 6) Agree with him going to rehab, no further CV work up (2) Fracture of wrist Qualifiers: Encounter type: initial encounter Fracture type: closed Laterality: left Qualified Code(s): S62.102A - Fracture of unspecified carpal bone, left wrist, initial encounter for closed fracture (3) Fracture, ribs Qualifiers: Encounter type: initial encounter Rib fracture type: multiple ribs Fracture type: closed Laterality: left Qualified Code(s): S22.42XA - Multiple fractures of ribs, left side, initial encounter for closed fracture (4) Fracture multiple cervical vertebra-closed Qualifiers: Encounter type: initial encounter Qualified Code(s): S12.9XXA - Fracture of neck, unspecified, initial encounter (5) Fracture of thoracic spine Qualifiers: Encounter type: initial encounter Thoracic vertebra fracture level: T1 Fracture type: closed Fracture morphology: other fracture Qualified Code(s): S22.018A - Other fracture of first thoracic vertebra, initial encounter for closed fracture
--- NOTE | 2018-03-03 14:05 | P.DS ---
Date of admission: 02/26/18 20:23 Primary care physician: UNKNOWN Attending physician on discharge: Ovi Richardson Anticipated date of discharge: 03/03/18 Brief History from admission: 73-year-old male transfer from [facility], apparently patient fell 3 days ago, he has been feeling weak and was seen in the [facility], they performed a complete trauma workup, has a left wrist fracture, he has questionable acute fractures of the C-spine, he has 4 acute rib fractures on the left side, the history taking patient complains of pain all over, he is awake, denies neck pain-patient is a poor historian he apparently has history of EtOH abuse-multiple other medical problems including liver cirrhosis. DS: Medications - Discharge Medications Prescriptions: aspirin 81 mg PO DAILY #30 tab diltiazem HCl 240 mg PO DAILY #30 cap famotidine [Pepcid] 20 mg PO BID #60 ml ipratropium-albuterol 1 amp NEB Q2HR NEB PRN #1 ml PRN Reason: Shortness Of Breath/Wheezing lidocaine [Lidoderm] 1 patch TRANSDERMAL DAILY #30 ea methocarbamol 500 mg PO Q8H PRN #90 tab PRN Reason: persistent neck pain nicotine 1 patch TRANSDERMAL DAILY #7 ea DS: Summary Hospital Course: 72-year-old male with past medical history significant for GERD, gallbladder disease, bipolar disorder, tobacco abuse and alcohol abuse who presented to [facility] on 02/26 after patient had apparently fallen 10- 12 steps [address] performed demonstrated an abnormal exam with multiple unhealed cervical vertebral body fractures, some involvement of the spinous process, superimposed spondylitic changes, resulting in multilevel central canal stenosis spanning from C2 through C3 down to C6 through C7. Anterior cord contour remodeling/flattening at C5 through C6 and C6 through C7. Head/brain CT revealed solitary lobulated, slightly heterogenous focus of nonspecific extra-axial attenuation overlying a small focal portion of the mesial right frontal convexity. Subacute focal hemorrhage in subarachnoid space was considered however etiology could also be atypical heterogeneous meningioma, atypical cavernoma, peripheral aneurysm in the pericallosa distribution of the right ROBBIN vessel. CT of the abdomen and pelvis revealed retroperitoneal lymphadenopathy of the abdomen, greatest within the upper abdomen, with multiple enlarged heterogeneous lymph nodes up to 2.6 cm in the yanelis hepatis, suspicious for malignancy, new compared with imaging from 12/28/2002. Increased enlargement of left lobe and liver with diffuse heterogeneous appearance and lack of opacification of the left portal vein, suspicious for infiltrative hepatic malignancy, with increased diffuse nodularity of the liver consistent with chronic hepatocellular disease. Nonemergent MRI of abdomen without and with contrast for evaluation of hepatic mass was recommended. CTA of the chest revealed no PE, nondisplaced rib fractures on the left side involving ribs 4, 5 bilaterally, 7 posteriorly, lateral ninth rib fracture. Small left and trace right pleural effusion. Focal groundglass nodule in the left upper lobe, scattered solid pulmonary nodules recommended to follow-up per Fleischner criteria. Hepatic cirrhosis, mass in yanelis hepatitis appearing to be lymphadenopathy. Mild aortic dissection. X-ray imaging of upper extremity revealed left distal radius fracture with mild dorsal angulation. Patient was transferred to [facility] and admitted to trauma services for further workup and recommendations. Patient was seen and evaluated by orthopedic services who recommended nonoperative treatment of distal radius fracture and instructions to maintain splint and follow-up with orthopedic clinic as outpatient. Neurosurgery saw and evaluated patient who recommended Bourg collar, follow-up MRI of cervical spine, and CTA to rule out vascular malformation. During patient's hospitalization he continued to refuse further imaging studies as well as medications to help with anxiety during imaging. This was discussed by neurosurgeon with patient regarding risks. During patient's hospitalization he also developed a new onset of atrial fibrillation. Cardiology services consulted and patient was evaluated by Dr. Cisneros who recommended Cardizem for rate control. Cardiology advised patient is not candidate due to his fall as well as alcohol use. He recommended continuing 81 mg dose aspirin along with Cardizem. Patient has met maximum benefits from hospitalization and is now ready to focus on strengthening and rehabilitation. Discussed extensively with and patient as well as with Dr. Cisneros. Patient will be discharged to [facility] [place] today. This morning patient is seen and examined sitting up on recliner with at bedside this morning. Patient denies any dizziness, lightheadedness, headache, fevers, chills, nausea, vomiting, diarrhea, or chest pain. Patient reports he had a bowel movement yesterday. - Time Spent with Patient Total time spent providing and/or coordinating discharge services: Less than 30 minutes - Quality: VTE Deep Vein Thrombosis/Pulmonary Embolism Present on Admission: No Exam Vital signs: Vital Signs 03/02/18 14:48 03/02/18 16:00 03/02/18 20:00 Temperature 97.3 F L 98.7 F Pulse Rate 96 H 86 Respiratory Rate 18 12 16 Blood Pressure 100/62 112/58 L Pulse Oximetry 98 97 03/03/18 00:00 03/03/18 04:00 03/03/18 08:00 Temperature 98.2 F 98.2 F 97.2 F L Pulse Rate 92 H 99 H 94 H Respiratory Rate 17 17 18 Blood Pressure 113/65 133/91 H 129/64 Pulse Oximetry 96 95 94 L 03/03/18 08:44 Temperature Pulse Rate Respiratory Rate 18 Blood Pressure Pulse Oximetry Intake & Output 03/02/18 03/03/18 03/03/18 18:59 06:59 18:59 Intake Total 880 / 880 1000 / 1000 Balance 880 / 880 1000 / 1000 Intake: IV 1000 / 1000 NS Inj 1,000 ML @ 84 mls/hr IV. 1000 / 1000 CONT .[id number] VIVIANE Rx#:[id number] Oral 880 / 880 Other: # Voids 2 Date of Last Bowel Movement 02/27/18 03/02/18 # Bowel Movements 1 Narrative: GENERAL: Patient sitting up in bed. Appears comfortable. Cervical collar in place. SKIN: Warm and dry. HEAD: Normocephalic. EYES: No scleral icterus. No injection or drainage. NECK: Supple, trachea midline. CARDIOVASCULAR: Regular rate and rhythm without murmurs, gallops, or rubs. RESPIRATORY: Breath sounds equal bilaterally. No accessory muscle use. GASTROINTESTINAL: Abdomen soft, non-tender, nondistended. + Bowel sounds. MUSCULOSKELETAL: No cyanosis, or edema. Left arm splinted, + finger movement, capillary refill less than 3 seconds, normal sensation. BACK: Nontender without obvious deformity. No CVA tenderness. Results Procedures completed during hospitalization: none - Impressions ITS Impressions Wrist X-Ray 02/26/18 00:00 CONCLUSION: Acute appearing distal radial and ulnar styloid fracture. Liver Ultrasound 02/27/18 00:00 CONCLUSION: 1. Cirrhosis with small volume ascites. 2. Lack of visualization of the pancreas. Chest X-Ray 02/27/18 04:01 CONCLUSION: Mild increased density at the left base representing some degree of consolidation/contusion or atelectasis. Discharge Plan - Discharge Disposition Patient Disposition: 63 Rehab Inpatient - Discharge Condition Condition: Fair - Discharge Order Discharge Orders: Discharge Order (Routine); Ordered 03/03/18 Ordered By: Azael Costello - Physicians Team Primary Care Provider: UNKNOWN, Attending Provider: Ovi Richardson Other Providers: Ovi Blake MD ; Macario Mackenzie MD ; Steven Adams MD ; [employer] ; Checo Zamudio MD ; Carisa Lam ARNP ; Mikhail Singer MD ; Masha Najera MD ; Bren Matute ARNP ; Marisa Villafuerte MD ; Bren Thomas ARNP ; Cricket Manley MD ; Wesley Cisneros, DO
[2018-03-04] MEDS ORDERED: dilTIAZem CD 240 MG Capsule PO SCH (09:00)
== END 2018-03-03 15:50 ==
LOC: NEPE 19:26 → NEDA 20:23 → N03 02-27 00:16 → N06 02-27 16:21
PROVIDERS: ADMIT Internal Medicine; ATTEND Internal Medicine

== ENCOUNTER 2018-04-15 10:06 | Inpatient (IN) ==
[2018-04-15] MEDS ORDERED: Morphine Inj 4 MG/ML Vial IV.PUSH ONE (11:42)
[2018-04-15 12:49] LABS: Bilirubin,Urine Small (Negative); Clarity,Urine Hazy (Clear); Color,Urine Amber (Yellw/Straw); Glucose,Urine (UA) Negative (Negative); Hyaline Casts,Urine 19 /lpf (0-3); Leukocyte Esterase,Urine Negative (Negative); Mucus,Urine Few /lpf (Occasional); Nitrite,Urine Negative (Negative); Specific Gravity,Urine 1.021 (1.002-1.035); Squamous Epithelial Cell,Urine 1 /hpf (0-5); Urobilinogen,Urine 4 or Greater mg/dL (Less than 2)
[2018-04-15 12:52] LABS: Ictotest,Urine Positive (Negative)
[2018-04-15 13:07] LABS: Alkaline Phosphatase 312 U/L (45-117); Total Protein 7.3 g/dL (6.4-8.2)
[2018-04-15 13:27] LABS: Alanine Aminotransferase 42 U/L (12-78); Anion Gap 11 meq/L (5-15); Aspartate Aminotransferase 69 U/L (15-37); Blood Urea Nitrogen 12 mg/dL (7-18); Calcium 8.1 mg/dL (8.5-10.1); Carbon Dioxide 22.1 meq/L (21.0-32.0); Chloride 94 meq/L (98-107); Glomerular Filtration Rate Greater Than 89 mL/min (>89); Glucose,Random 124 mg/dL (74-106); Lipase 154 U/L (73-393); Potassium 5.1 meq/L (3.5-5.1); Sodium 127 meq/L (136-145)
[2018-04-15 13:32] LABS: Baso # (Auto) 0.1 th/mm3 (0.0-0.2); Baso % (Auto) 0.8 % (0.0-2.0); Eos % (Auto) 0.1 % (0.0-4.0); Hematocrit 33.8 % (39.0-51.0); Hemoglobin 11.8 gm/dL (13.0-17.0); Lymph # (Auto) 0.8 th/mm3 (1.0-4.8); Lymph % (Auto) 6.9 % (9.0-44.0); Mean Corpuscular HGB Conc 34.9 % (32.0-36.0); Mean Corpuscular Hemoglobin 31.1 pg (27.0-34.0); Mean Platelet Volume 9.9 fL (7.0-11.0); Mono # (Auto) 0.7 th/mm3 (0.0-0.9); Mono % (Auto) 6.4 % (0.0-8.0); Neut # (Auto) 10.1 th/mm3 (1.8-7.7); Neut % (Auto) 85.8 % (16.0-70.0); Platelet Count 182 th/mm3 (150-450); Red Cell Distribution Width 14.4 % (11.6-17.2); White Blood Count 11.7 th/mm3 (4.0-11.0)
[2018-04-15 13:43] LABS: INR 1.3 Ratio
[2018-04-15 13:48] LABS: Prothrombin Time 13.6 sec (9.8-11.6)
--- NOTE | 2018-04-15 14:11 | ED ---
HPI General Chief complaint: Abdominal Pain Stated complaint: GI Time Seen by Provider: 04/15/18 11:23 Source: patient and family Mode of arrival: wheelchair Limitations: no limitations History of Present Illness HPI narrative: Patient is a 72 year old male who comes in complaining of abdominal pain and distention. He says it has been going on for the past 10 weeks. He says it has gotten so bad, he is unable to eat and feels short of breath. Per , this has been going on for the past week. She says he was admitted for multiple injuries a few months ago and "spots were found on his liver," but he did not start to have this swelling or pain until the past week or so. He has not had any fever. He denies chest pain. Severity is moderate. Related Data Home Medications Medication Instructions Recorded Confirmed digoxin 0.125 mg PO DAILY 04/15/18 04/15/18 diltiazem HCl [Cardizem CD] 240 mg PO DAILY 04/15/18 04/15/18 tamsulosin 0.4 mg PO DAILY 04/15/18 04/15/18 thiamine HCl (vitamin B1) 100 mg PO DAILY 04/15/18 04/15/18 Previous Rx's Medication Instructions Recorded aspirin 81 mg PO DAILY #30 tab 03/14/18 levofloxacin 750 mg PO DAILY #5 tab 03/14/18 Allergies Allergy/AdvReac Type Severity Reaction Status Date / Time fire ant Allergy Difficulty Verified 03/03/18 16:44 Breathing Review of Systems ROS: all other systems reviewed are negative Constitutional Denies chills and Denies fever(s) ENT Denies dizziness Cardiovascular Denies chest pain and Reports dyspnea Respiratory Reports dyspnea Gastrointestinal Reports abdominal pain, Reports nausea and Denies vomiting Musculoskeletal Denies myalgias and Denies arthralgias Integumentary/Breasts Reports change in pigmentation Neurologic Denies focal weakness and Denies numbness FORMERLY [facility] Medical History Medical History Afib (Acute) Alcohol abuse (Acute) Liver disease (Acute) Rib fracture (Acute) Wrist fracture (Acute) Bipolar disorder (Acute) GERD (gastroesophageal reflux disease) (Acute) Gallbladder disease (Acute) Family History Family History Mother Cancer Father Pancreatitis, alcoholic, acute Social History Social History Substance History: Past History Second Hand Smoke Exposure: Yes Smoking Status: Current every day smoker Tobacco Type: Cigarettes Packs Per Day: 1 Cigarettes Per Day: 20.0 years: 56 How Often Do You Have a Drink Containing Alcohol: Never Hx Recent Travel: No Recent Travel in [facility] within the Last 8 Weeks: No Substance Abuse Detail Alcohol: Substance Use Status: Early Remission Route Used Substance Abuse: By Mouth Last Used: quit in february, previous daily user Reason for Use: Feels Good Immunization History Tetanus Immunization: Unsure Hx Influenza Vaccine This Season: No Exam Narrative Exam Narrative: GENERAL: Awake and alert, no acute distress. SKIN: Focused skin assessment warm/dry. Jaundice present. HEAD: Atraumatic. Normocephalic. EYES: Pupils equal and round. scleral icterus. Extraocular movements intact. ENT: Mucous membranes pink and moist. NECK: Trachea midline. No JVD. CARDIOVASCULAR: Regular rate and rhythm. No murmur appreciated. RESPIRATORY: No accessory muscle use. Clear to auscultation. Breath sounds equal bilaterally. GASTROINTESTINAL: Abdomen distended, mildly tender to palpation to the right upper quadrant. MUSCULOSKELETAL: No obvious deformities. No clubbing. No cyanosis. NEUROLOGICAL: Awake and alert. No obvious cranial nerve deficits. Motor grossly within normal limits. Normal speech. PSYCHIATRIC: Appropriate mood and affect; insight and judgment normal. Course Initial Documented Vital Signs Temperature 97.5 F L 04/15/18 10:09 Pulse Rate 108 H 04/15/18 10:09 Respiratory Rate 20 04/15/18 10:09 Blood Pressure 111/61 04/15/18 10:09 Pulse Oximetry 99 04/15/18 10:09 Last Documented Vital Signs Temperature 97.4 F L 04/16/18 16:00 Pulse Rate 68 04/16/18 16:00 Respiratory Rate 18 04/16/18 16:00 Blood Pressure 92/50 L 04/16/18 16:00 Pulse Oximetry 96 04/16/18 16:00 Medical Decision Making MDM Narrative Medical decision making narrative: Patient is a 72-year-old male who comes in complaining of abdominal pain and distention. Exam shows patient to be jaundice , abdomen is distended and tender to palpation. IV established, labs sent. Labs concerning for elevated bilirubin level. Patient given lactulose. CT abdomen pelvis performed. Patient will be admitted for further management. Medical Screen Exam Complete: Yes Emergency Medical Condition: Yes Differential Diagnosis Differential Diagnosis: Liver failure versus hepatitis versus obstruction versus gallbladder disease Medical Records Medical records reviewed: Yes I reviewed the patient's medical records. Lab Data Lab results reviewed: Yes I reviewed the patient's lab results. Result diagrams: 04/16/18 06:57 04/16/18 06:57 Lab Results 04/15/18 04/15/18 04/15/18 Range/Units 12:06 12:06 12:23 WBC (4.0-11.0) th/mm3 RBC (4.50-5.90) mil/mm3 Hgb (13.0-17.0) gm/dL Hct (39.0-51.0) % MCV (80.0-100.0) fL MCH (27.0-34.0) pg MCHC (32.0-36.0) % RDW (11.6-17.2) % Plt Count (150-450) th/mm3 MPV (7.0-11.0) fL Neut % (Auto) (16.0-70.0) % Lymph % (Auto) (9.0-44.0) % [place] % (Auto) (0.0-8.0) % Eos % (Auto) (0.0-4.0) % Baso % (Auto) (0.0-2.0) % Neut # (Auto) (1.8-7.7) th/mm3 Lymph # (Auto) (1.0-4.8) th/mm3 [place] # (Auto) (0.0-0.9) th/mm3 Eos # (Auto) (0.0-0.4) th/mm3 Baso # (Auto) (0.0-0.2) th/mm3 WBC Differential Differential Comment ESR (0-20) mm/hr PT (9.8-11.6) sec INR Ratio APTT (24.3-30.1) sec Sodium 127 L (136-145) meq/L Potassium 5.1 (3.5-5.1) meq/L Chloride 94 L (98-107) meq/L Carbon Dioxide 22.1 (21.0-32.0) meq/L Anion Gap 11 (5-15) meq/L BUN 12 (7-18) mg/dL Creatinine 0.84 (0.60-1.30) mg/dL Estimated GFR Greater than 89 (>89) mL/min Random Glucose 124 H (74-106) mg/dL Calcium 8.1 L (8.5-10.1) mg/dL Iron (65-175) mcg/dL TIBC (250-450) mcg/dL % Saturation (20-50) % Ferritin (26-388) ng/mL Total Bilirubin 4.6 H (0.2-1.0) mg/dL Direct Bilirubin 3.3 H (0.0-0.2) mg/dL Indirect Bilirubin 1.3 H (0.0-0.8) mg/dL AST 69 H (15-37) U/L ALT 42 (12-78) U/L Alkaline Phosphatase 312 H (45-117) U/L Ammonia 36 H (11-32) mcmol/L Total Protein 7.3 (6.4-8.2) g/dL Albumin 2.0 L (3.4-5.0) g/dL Amylase (25-115) U/L Lipase 154 (73-393) U/L Tumor Marker AFP (0.5-8.0) ng/mL Carcinoembryonic Ag (0.2-5.0) ng/mL CA 19-9 Antigen (0.0-35.0) U/mL Vitamin B12 (193-986) pg/mL Folate (3.1-17.5) ng/mL Urine Color Reyna (Yellw/Straw) Urine Clarity Hazy H (Clear) Urine pH 5.0 (5.0-8.5) Ur Specific [place] 1.021 (1.002-1.035) Urine Protein 30 H (Neg-Trace) mg/dL Urine Glucose (UA) Negative (Negative) mg/dL Urine Ketones Negative (Negative) mg/dL Urine Occult Blood Small H (Negative) Urine Nitrate Negative (Negative) Urine Bilirubin Small H (Negative) Urine Ictotest Positive H (Negative) Urine Urobilinogen 4 or greater (Less than 2) mg/dL Ur Leukocyte Esterase Negative (Negative) Urine RBC 12 H (0-3) /hpf Urine WBC 8 H (0-5) /hpf Ur Squamous Epith Cells 1 (0-5) /hpf Hyaline Casts 19 (0-3) /lpf Urine Mucus Few H (Occasional) /lpf Micro UA Comment Culture not ind Ur Microscopic Review Not Reportable Urine Culture Comments Culture not ind 04/15/18 04/15/18 04/15/18 Range/Units 13:13 13:13 19:02 WBC 11.7 H (4.0-11.0) th/mm3 RBC 3.80 L (4.50-5.90) mil/mm3 Hgb 11.8 L (13.0-17.0) gm/dL Hct 33.8 L (39.0-51.0) % MCV 89.0 (80.0-100.0) fL MCH 31.1 (27.0-34.0) pg MCHC 34.9 (32.0-36.0) % RDW 14.4 (11.6-17.2) % Plt Count 182 (150-450) th/mm3 MPV 9.9 (7.0-11.0) fL Neut % (Auto) 85.8 H (16.0-70.0) % Lymph % (Auto) 6.9 L (9.0-44.0) % [place] % (Auto) 6.4 (0.0-8.0) % Eos % (Auto) 0.1 (0.0-4.0) % Baso % (Auto) 0.8 (0.0-2.0) % Neut # (Auto) 10.1 H (1.8-7.7) th/mm3 Lymph # (Auto) 0.8 L (1.0-4.8) th/mm3 [place] # (Auto) 0.7 (0.0-0.9) th/mm3 Eos # (Auto) 0.0 (0.0-0.4) th/mm3 Baso # (Auto) 0.1 (0.0-0.2) th/mm3 WBC Differential . Differential Comment Auto diff final ESR (0-20) mm/hr PT 13.6 H (9.8-11.6) sec INR 1.3 Ratio APTT 28.0 (24.3-30.1) sec Sodium (136-145) meq/L Potassium (3.5-5.1) meq/L Chloride (98-107) meq/L Carbon Dioxide (21.0-32.0) meq/L Anion Gap (5-15) meq/L BUN (7-18) mg/dL Creatinine (0.60-1.30) mg/dL Estimated GFR (>89) mL/min Random Glucose (74-106) mg/dL Calcium (8.5-10.1) mg/dL Iron (65-175) mcg/dL TIBC (250-450) mcg/dL % Saturation (20-50) % Ferritin (26-388) ng/mL Total Bilirubin (0.2-1.0) mg/dL Direct Bilirubin (0.0-0.2) mg/dL Indirect Bilirubin (0.0-0.8) mg/dL AST (15-37) U/L ALT (12-78) U/L Alkaline Phosphatase (45-117) U/L Ammonia 13 (11-32) mcmol/L Total Protein (6.4-8.2) g/dL Albumin (3.4-5.0) g/dL Amylase (25-115) U/L Lipase (73-393) U/L Tumor Marker AFP (0.5-8.0) ng/mL Carcinoembryonic Ag (0.2-5.0) ng/mL CA 19-9 Antigen (0.0-35.0) U/mL Vitamin B12 (193-986) pg/mL Folate (3.1-17.5) ng/mL Urine Color (Yellw/Straw) Urine Clarity (Clear) Urine pH (5.0-8.5) Ur Specific [place] (1.002-1.035) Urine Protein (Neg-Trace) mg/dL Urine Glucose (UA) (Negative) mg/dL Urine Ketones (Negative) mg/dL Urine Occult Blood (Negative) Urine Nitrate (Negative) Urine Bilirubin (Negative) Urine Ictotest (Negative) Urine Urobilinogen (Less than 2) mg/dL Ur Leukocyte Esterase (Negative) Urine RBC (0-3) /hpf Urine WBC (0-5) /hpf Ur Squamous Epith Cells (0-5) /hpf Hyaline Casts (0-3) /lpf Urine Mucus (Occasional) /lpf Micro UA Comment Ur Microscopic Review Urine Culture Comments 04/15/18 04/15/18 04/15/18 Range/Units 19:02 19:02 19:02 WBC (4.0-11.0) th/mm3 RBC (4.50-5.90) mil/mm3 Hgb (13.0-17.0) gm/dL Hct (39.0-51.0) % MCV (80.0-100.0) fL MCH (27.0-34.0) pg MCHC (32.0-36.0) % RDW (11.6-17.2) % Plt Count (150-450) th/mm3 MPV (7.0-11.0) fL Neut % (Auto) (16.0-70.0) % Lymph % (Auto) (9.0-44.0) % [place] % (Auto) (0.0-8.0) % Eos % (Auto) (0.0-4.0) % Baso % (Auto) (0.0-2.0) % Neut # (Auto) (1.8-7.7) th/mm3 Lymph # (Auto) (1.0-4.8) th/mm3 [place] # (Auto) (0.0-0.9) th/mm3 Eos # (Auto) (0.0-0.4) th/mm3 Baso # (Auto) (0.0-0.2) th/mm3 WBC Differential Differential Comment ESR 50 H (0-20) mm/hr PT (9.8-11.6) sec INR Ratio APTT (24.3-30.1) sec Sodium (136-145) meq/L Potassium (3.5-5.1) meq/L Chloride (98-107) meq/L Carbon Dioxide (21.0-32.0) meq/L Anion Gap (5-15) meq/L BUN (7-18) mg/dL Creatinine (0.60-1.30) mg/dL Estimated GFR (>89) mL/min Random Glucose (74-106) mg/dL Calcium (8.5-10.1) mg/dL Iron 41 L (65-175) mcg/dL TIBC 161 L (250-450) mcg/dL % Saturation 25.5 (20-50) % Ferritin 998 H (26-388) ng/mL Total Bilirubin (0.2-1.0) mg/dL Direct Bilirubin (0.0-0.2) mg/dL Indirect Bilirubin (0.0-0.8) mg/dL AST (15-37) U/L ALT (12-78) U/L Alkaline Phosphatase (45-117) U/L Ammonia (11-32) mcmol/L Total Protein (6.4-8.2) g/dL Albumin (3.4-5.0) g/dL Amylase 61 (25-115) U/L Lipase (73-393) U/L Tumor Marker AFP 1574.4 H (0.5-8.0) ng/mL Carcinoembryonic Ag (0.2-5.0) ng/mL CA 19-9 Antigen 86.4 H (0.0-35.0) U/mL Vitamin B12 (193-986) pg/mL Folate (3.1-17.5) ng/mL Urine Color (Yellw/Straw) Urine Clarity (Clear) Urine pH (5.0-8.5) Ur Specific [place] (1.002-1.035) Urine Protein (Neg-Trace) mg/dL Urine Glucose (UA) (Negative) mg/dL Urine Ketones (Negative) mg/dL Urine Occult Blood (Negative) Urine Nitrate (Negative) Urine Bilirubin (Negative) Urine Ictotest (Negative) Urine Urobilinogen (Less than 2) mg/dL Ur Leukocyte Esterase (Negative) Urine RBC (0-3) /hpf Urine WBC (0-5) /hpf Ur Squamous Epith Cells (0-5) /hpf Hyaline Casts (0-3) /lpf Urine Mucus (Occasional) /lpf Micro UA Comment Ur Microscopic Review Urine Culture Comments 04/15/18 04/15/18 04/16/18 Range/Units 19:02 19:02 06:57 WBC (4.0-11.0) th/mm3 RBC (4.50-5.90) mil/mm3 Hgb (13.0-17.0) gm/dL Hct (39.0-51.0) % MCV (80.0-100.0) fL MCH (27.0-34.0) pg MCHC (32.0-36.0) % RDW (11.6-17.2) % Plt Count (150-450) th/mm3 MPV (7.0-11.0) fL Neut % (Auto) (16.0-70.0) % Lymph % (Auto) (9.0-44.0) % [place] % (Auto) (0.0-8.0) % Eos % (Auto) (0.0-4.0) % Baso % (Auto) (0.0-2.0) % Neut # (Auto) (1.8-7.7) th/mm3 Lymph # (Auto) (1.0-4.8) th/mm3 [place] # (Auto) (0.0-0.9) th/mm3 Eos # (Auto) (0.0-0.4) th/mm3 Baso # (Auto) (0.0-0.2) th/mm3 WBC Differential Differential Comment ESR (0-20) mm/hr PT (9.8-11.6) sec INR Ratio APTT (24.3-30.1) sec Sodium 129 L (136-145) meq/L Potassium 5.3 H (3.5-5.1) meq/L Chloride 99 (98-107) meq/L Carbon Dioxide 20.5 L (21.0-32.0) meq/L Anion Gap 10 (5-15) meq/L BUN 15 (7-18) mg/dL Creatinine 0.71 (0.60-1.30) mg/dL Estimated GFR Greater than 89 (>89) mL/min Random Glucose 90 (74-106) mg/dL Calcium 7.9 L (8.5-10.1) mg/dL Iron (65-175) mcg/dL TIBC (250-450) mcg/dL % Saturation (20-50) % Ferritin (26-388) ng/mL Total Bilirubin 3.0 H (0.2-1.0) mg/dL Direct Bilirubin (0.0-0.2) mg/dL Indirect Bilirubin (0.0-0.8) mg/dL AST 55 H (15-37) U/L ALT 32 (12-78) U/L Alkaline Phosphatase 235 H (45-117) U/L Ammonia (11-32) mcmol/L Total Protein 6.3 L D (6.4-8.2) g/dL Albumin 1.7 L (3.4-5.0) g/dL Amylase (25-115) U/L Lipase (73-393) U/L Tumor Marker AFP (0.5-8.0) ng/mL Carcinoembryonic Ag 2.9 (0.2-5.0) ng/mL CA 19-9 Antigen (0.0-35.0) U/mL Vitamin B12 Greater than 2000 H (193-986) pg/mL Folate 4.3 (3.1-17.5) ng/mL Urine Color (Yellw/Straw) Urine Clarity (Clear) Urine pH (5.0-8.5) Ur Specific [place] (1.002-1.035) Urine Protein (Neg-Trace) mg/dL Urine Glucose (UA) (Negative) mg/dL Urine Ketones (Negative) mg/dL Urine Occult Blood (Negative) Urine Nitrate (Negative) Urine Bilirubin (Negative) Urine Ictotest (Negative) Urine Urobilinogen (Less than 2) mg/dL Ur Leukocyte Esterase (Negative) Urine RBC (0-3) /hpf Urine WBC (0-5) /hpf Ur Squamous Epith Cells (0-5) /hpf Hyaline Casts (0-3) /lpf Urine Mucus (Occasional) /lpf Micro UA Comment Ur Microscopic Review Urine Culture Comments 04/16/18 Range/Units 06:57 WBC 14.2 H (4.0-11.0) th/mm3 RBC 4.04 L (4.50-5.90) mil/mm3 Hgb 12.2 L (13.0-17.0) gm/dL Hct 36.6 L (39.0-51.0) % MCV 90.6 (80.0-100.0) fL MCH 30.1 (27.0-34.0) pg MCHC 33.3 (32.0-36.0) % RDW 14.6 (11.6-17.2) % Plt Count 226 (150-450) th/mm3 MPV 10.2 (7.0-11.0) fL Neut % (Auto) 84.6 H (16.0-70.0) % Lymph % (Auto) 6.6 L (9.0-44.0) % [place] % (Auto) 7.9 (0.0-8.0) % Eos % (Auto) 0.2 (0.0-4.0) % Baso % (Auto) 0.7 (0.0-2.0) % Neut # (Auto) 12.0 H (1.8-7.7) th/mm3 Lymph # (Auto) 0.9 L (1.0-4.8) th/mm3 [place] # (Auto) 1.1 H (0.0-0.9) th/mm3 Eos # (Auto) 0.0 (0.0-0.4) th/mm3 Baso # (Auto) 0.1 (0.0-0.2) th/mm3 WBC Differential . Differential Comment Auto diff final ESR (0-20) mm/hr PT (9.8-11.6) sec INR Ratio APTT (24.3-30.1) sec Sodium (136-145) meq/L Potassium (3.5-5.1) meq/L Chloride (98-107) meq/L Carbon Dioxide (21.0-32.0) meq/L Anion Gap (5-15) meq/L BUN (7-18) mg/dL Creatinine (0.60-1.30) mg/dL Estimated GFR (>89) mL/min Random Glucose (74-106) mg/dL Calcium (8.5-10.1) mg/dL Iron (65-175) mcg/dL TIBC (250-450) mcg/dL % Saturation (20-50) % Ferritin (26-388) ng/mL Total Bilirubin (0.2-1.0) mg/dL Direct Bilirubin (0.0-0.2) mg/dL Indirect Bilirubin (0.0-0.8) mg/dL AST (15-37) U/L ALT (12-78) U/L Alkaline Phosphatase (45-117) U/L Ammonia (11-32) mcmol/L Total Protein (6.4-8.2) g/dL Albumin (3.4-5.0) g/dL Amylase (25-115) U/L Lipase (73-393) U/L Tumor Marker AFP (0.5-8.0) ng/mL Carcinoembryonic Ag (0.2-5.0) ng/mL CA 19-9 Antigen (0.0-35.0) U/mL Vitamin B12 (193-986) pg/mL Folate (3.1-17.5) ng/mL Urine Color (Yellw/Straw) Urine Clarity (Clear) Urine pH (5.0-8.5) Ur Specific [place]val[place] (1.002-1.035) Urine Protein (Neg-Trace) mg/dL Urine Glucose (UA) (Negative) mg/dL Urine Ketones (Negative) mg/dL Urine Occult Blood (Negative) Urine Nitrate (Negative) Urine Bilirubin (Negative) Urine Ictotest (Negative) Urine Urobilinogen (Less than 2) mg/dL Ur Leukocyte Esterase (Negative) Urine RBC (0-3) /hpf Urine WBC (0-5) /hpf Ur Squamous Epith Cells (0-5) /hpf Hyaline Casts (0-3) /lpf Urine Mucus (Occasional) /lpf Micro UA Comment Ur Microscopic Review Urine Culture Comments Imaging Data Radiologist's impression: Abdomen/Pelvis CT 04/15/18 11:42 CONCLUSION: 1. Prominent portal lymphadenopathy as well as retroperitoneal and bilateral iliac lymphadenopathy. Differential diagnosis includes metastatic lymphadenopathy and lymphoma. 2. 2.4 cm low-density lesion within the uncinate process of the pancreas which is indeterminate. Outpatient MRI of the abdomen with contrast may be helpful for further evaluation of this lesion. 3. Large area of decreased attenuation involving the left lobe of the liver as well as enlargement of the caudate lobe. MRI of the abdomen with contrast may be helpful to rule out subtle underlying mass if clinically indicated. 4. Enlarged, heterogeneous and nodular in contour indicating cirrhosis. 5. Chronic calcific pancreatitis. 6. 9 mm calcified nonobstructing right pelvicalyceal system calculus and 6 mm calcified nonobstructing right renal calculus. 7. Extensive ascites. 8. Bilateral inguinal hernias. 9. Tiny 11 mm right adrenal nodule consistent with probable adrenal adenoma. 10. Cholelithiasis. 11. Moderate-sized left pleural effusion and tiny right pleural effusion with adjacent compressive atelectasis. 12. Coronary artery calcifications. 13. Degenerative changes and scoliosis of the thoracolumbar spine. Chest CT 04/16/18 00:00 CONCLUSION: 1. No lung masses are seen. 2. Mild left pleural effusion and minimal right pleural effusion. 3. Left-sided rib fractures and focal area of sclerosis at the right sixth rib which could be from prior fracture. Paracentesis Ultrasound 04/16/18 00:00 CONCLUSION: 1. Uncomplicated diagnostic and therapeutic paracentesis. Discharge Plan Discharge Disposition Patient Disposition: 30 Still Patient Discharge Condition Condition: Stable Discharge Details Diagnosis: Hyperbilirubinemia, Encephalopathy Physicians Team ED Provider: Eun Salmeron Primary Care Provider: NON STAFF,PROVIDER Attending Provider: Shahnaz Horn Other Providers: Freddie Brown ; Cheyanne Ly Discharge Interventions Interventions: ED Discharge Assessment Last Done: 04/15/18 16:46 Status ED Status: Left Department Discharge Information Discharge Date/Time: 04/15/18 16:49
--- NOTE | 2018-04-15 15:27 | CT ---
EXAM DATE: 04/15/2018 1:49 PM EDT AGE/SEX: 72 years / Male INDICATIONS: Abdominal pain and swelling. CLINICAL DATA: This is the patient's initial encounter. Patient reports that signs and symptoms have been present for 1 day and indicates a pain score of 4/10. MEDICAL/SURGICAL HISTORY: Gastroesophageal reflux disease. Liver disease, Afib, gallbladder dis ease, liver cancer. None. ORAL CONTRAST: No oral contrast ingested. RADIATION DOSE: 15.94 CTDI (mGy) COMPARISON: [facility] – [place], [place] ABDOMEN LIVER, 02/27/2018. . TECHNIQUE: Multiple contiguous axial images were obtained through the abdomen and pelvis following b olus infusion of 90 ml Omnipaque 350 (iohexol) nonionic water-soluble contrast as a single exam dos e. No oral contrast ingested. Using automated exposure control and adjustment of the mA and/or kV ac cording to patient size, radiation dose was kept as low as reasonably achievable to obtain optimal di agnostic quality images. DICOM format image data is available electronically for review and comparis on. FINDINGS: Lower Lungs: Moderate-sized left pleural effusion with adjacent compressive atelectasis is noted. Tin y right pleural effusion with adjacent compressive atelectasis is also noted. Coronary artery calcifi cations are noted. Liver: The liver is enlarged, heterogeneous and nodular in contour indicating cirrhosis. There is a l arge area of decreased attenuation involving the left lobe of the liver as well as enlargement of the caudate lobe. MRI of the abdomen with contrast may be helpful to rule out subtle underlying mass if clinically indicated. No focal mass or biliary ductal dilatation is noted. Very prominent portal lymp hadenopathy is noted with the largest 2 lymph nodes measuring 4.1 cm and 3.7 cm. Large amount of asci karen is noted within the abdomen and pelvis. A calcified gallstone is noted within the gallbladder fredy dder. Spleen: Homogeneous density without enlargement. Pancreas: There is a 2.4 cm low-density lesion within the uncinate process of the pancreas which is i ndeterminate. Outpatient MRI of the abdomen with contrast may be helpful for further evaluation of th is lesion. Calcifications are noted throughout the pancreas consistent with chronic calcific pancreat itis. Kidneys: Normal in size and shape. No evidence of mass or hydronephrosis. There is a calcified 9 mm calculus within the right pelvicalyceal system which is not obstructing. Tiny 6 mm calcified no nobstructing right renal calculus is also noted. Vascular calcification are noted bilaterally. Adrenal Glands: There is a tiny 11 mm right adrenal nodule consistent with probable adrenal adenoma . The left adrenal gland is unremarkable. Aorta: The aorta and proximal iliac vessels are grossly unremarkable without aneurysmal dilation. Bowel/Mesentery: The bowel loops are grossly unremarkable. The cecum and sigmoid colon have a normal configuration. Abdominal Wall: Intact. Retroperitoneum: Retroperitoneal and bilateral iliac lymphadenopathy is noted. The largest lymph nod e measures 2.5 cm and is located within the left iliac region. Differential includes metastatic lymph adenopathy and lymphoma. Bladder: Contours are smooth. Reproductive Organs: Prostate gland is enlarged and contains central calcifications. Inguinal: Bilateral inguinal hernias are noted with the left containing fat and ascites in the right containing only fat. Bony Structures: Degenerative changes and scoliosis of the thoracolumbar spine are noted. CONCLUSION: 1. Prominent portal lymphadenopathy as well as retroperitoneal and bilateral iliac lymphadenopathy. Differential diagnosis includes metastatic lymphadenopathy and lymphoma. 2. 2.4 cm low-density lesion within the uncinate process of the pancreas which is indeterminate. Out patient MRI of the abdomen with contrast may be helpful for further evaluation of this lesion. 3. Large area of decreased attenuation involving the left lobe of the liver as well as enlargement o f the caudate lobe. MRI of the abdomen with contrast may be helpful to rule out subtle underlying mas s if clinically indicated. 4. Enlarged, heterogeneous and nodular in contour indicating cirrhosis. 5. Chronic calcific pancreatitis. 6. 9 mm calcified nonobstructing right pelvicalyceal system calculus and 6 mm calcified nonobstructi ng right renal calculus. 7. Extensive ascites. 8. Bilateral inguinal hernias. 9. Tiny 11 mm right adrenal nodule consistent with probable adrenal adenoma. 10. Cholelithiasis. 11. Moderate-sized left pleural effusion and tiny right pleural effusion with adjacent compressive a telectasis. 12. Coronary artery calcifications. 13. Degenerative changes and scoliosis of the thoracolumbar spine. Electronically signed by: Mac Pacheco MD 04/15/2018 3:26 PM EDT
--- NOTE | 2018-04-15 15:39 | P.HPIM ---
History of Present Illness Primary Care Physician: PROVIDER NON STAFF Chief Complaint: abdominal distention History of Present Illness: patient is a 72 y/o male with history of alcohol abuse,atrial flutter and recent admission to this hospital after a fall who presented to ER with abdominal distention. he says that it's been going on for about ten weeks. he has some generalized abdominal pain with no nausea, vomiting, fever or chills. he has some sob which he relates to his abdominal distention. he says that he's had some constipation for the past few days. Inpatient Certification: I certify that the inpatient services were ordered in accordance with Medicare regulations governing the order. This includes certification that hospital inpatient services are reasonable and necessary and in the case of services not specified as inpatient-only under 42 CFR 419.22(n), that they are appropriately provided as inpatient services in accordance to with the 2-midnight benchmark under 43 CFR 412.3(e) Estimated Total Length of Stay (Days): 2 Plans for Post Hospital Care: Home Review of Systems All other systems reviewed negative except as stated in HPI PMFSH - History History Provided By: Patient - Medical History Medical History: Medical History (Last Updated 04/15/18 @ 15:32 by Shahnaz Horn MD) Afib Alcohol abuse Liver disease Rib fracture Wrist fracture Bipolar disorder GERD (gastroesophageal reflux disease) Gallbladder disease - Family History Family History: Family History (Last Reviewed 04/18/18 @ 08:21 by Francois Magallanes) Mother Cancer Father Pancreatitis, alcoholic, acute - Tobacco History Second Hand Smoke Exposure: Yes Tobacco Use In Past 30 Days: Yes Smoking Status: Current every day smoker Tobacco Type: Cigarettes Packs Per Day: 1 years: 55 - Alcohol History How Often Do You Have a Drink Containing Alcohol: Never - Substance Use History Substance History: Past History - Substance Use Type Alcohol Status: Early Remission Route Used: By Mouth Last Used: quit in february, previous daily user Reason for Use: Feels Good - Travel History History of Recent Travel: No Recent Travel in the [place] Within the Last 8 Weeks: No - Immunization History Tetanus Immunization: Unsure Hx Influenza Vaccine This Season: No Medications and Allergies Active Medications: Active Medications Digoxin (Lanoxin) 125 mcg PO DAILY VIVIANE Diltiazem HCl (Cardizem Cd 24hr) 240 mg PO DAILY VIVIANE Sodium Chloride (Ns Flush) 2 ml IV.FLUSH PRN PRN PRN Reason: FLUSH AFTER USING IV ACCESS Tamsulosin HCl (Flomax) 0.4 mg PO DAILY VIVIANE Thiamine HCl (Vitamin B1) 100 mg PO DAILY VIVIANE Allergies Allergy/AdvReac Type Severity Reaction Status Date / Time fire ant Allergy Difficulty Verified 03/03/18 16:44 Breathing Home Medications Medication Instructions Recorded Confirmed Type digoxin 0.125 mg PO DAILY 04/15/18 04/15/18 History diltiazem HCl [Cardizem CD] 240 mg PO DAILY 04/15/18 04/15/18 History tamsulosin 0.4 mg PO DAILY 04/15/18 04/15/18 History thiamine HCl (vitamin B1) 100 mg PO DAILY 04/15/18 04/15/18 History Exam Vital signs: Vital Signs 04/15/18 10:09 04/15/18 10:17 04/15/18 14:08 Temperature 97.5 F L Pulse Rate 108 H 106 H 93 H Respiratory Rate 20 18 18 Blood Pressure 111/61 110/61 112/75 Pulse Oximetry 99 98 95 Intake & Output 04/14/18 04/15/18 04/15/18 18:59 06:59 18:59 Weight 82.554 kg - Constitutional no acute distress - Routine HEENT Exam Eye: Present: PERRL - Routine Neck Exam Present: supple - Routine Respiratory Exam Present: CTA bilaterally - Routine Cardiovascular Exam Present: RRR - Routine Abdominal Exam Present: soft, distended - Routine Extremities Exam Present: edema (bilateral pedal edema.) Results - Labs CBC & Chem 7: 04/18/18 05:25 04/18/18 05:25 Labs: Short CBC 04/15/18 Range/Units 13:13 WBC 11.7 H (4.0-11.0) th/mm3 Hgb 11.8 L (13.0-17.0) gm/dL Hct 33.8 L (39.0-51.0) % Plt Count 182 (150-450) th/mm3 BMP 04/15/18 12:06 Sodium 127 L Potassium 5.1 Chloride 94 L Carbon Dioxide 22.1 BUN 12 Creatinine 0.84 Calcium 8.1 L Liver Function 04/15/18 Range/Units 12:06 Total Bilirubin 4.6 H (0.2-1.0) mg/dL Direct Bilirubin 3.3 H (0.0-0.2) mg/dL AST 69 H (15-37) U/L ALT 42 (12-78) U/L Alkaline Phosphatase 312 H (45-117) U/L Albumin 2.0 L (3.4-5.0) g/dL Urine 04/15/18 Range/Units 12:23 Urine Color Reyna (Yellw/Straw) Urine Clarity Hazy H (Clear) Urine pH 5.0 (5.0-8.5) Ur Specific [place] 1.021 (1.002-1.035) Urine Protein 30 H (Neg-Trace) mg/dL Urine Glucose (UA) Negative (Negative) mg/dL - Imaging Impressions Abdomen/Pelvis CT 04/15/18 11:42 CONCLUSION: 1. Prominent portal lymphadenopathy as well as retroperitoneal and bilateral iliac lymphadenopathy. Differential diagnosis includes metastatic lymphadenopathy and lymphoma. 2. 2.4 cm low-density lesion within the uncinate process of the pancreas which is indeterminate. Outpatient MRI of the abdomen with contrast may be helpful for further evaluation of this lesion. 3. Large area of decreased attenuation involving the left lobe of the liver as well as enlargement of the caudate lobe. MRI of the abdomen with contrast may be helpful to rule out subtle underlying mass if clinically indicated. 4. Enlarged, heterogeneous and nodular in contour indicating cirrhosis. 5. Chronic calcific pancreatitis. 6. 9 mm calcified nonobstructing right pelvicalyceal system calculus and 6 mm calcified nonobstructing right renal calculus. 7. Extensive ascites. 8. Bilateral inguinal hernias. 9. Tiny 11 mm right adrenal nodule consistent with probable adrenal adenoma. 10. Cholelithiasis. 11. Moderate-sized left pleural effusion and tiny right pleural effusion with adjacent compressive atelectasis. 12. Coronary artery calcifications. 13. Degenerative changes and scoliosis of the thoracolumbar spine. Caprini VTE Risk Assessment Caprini VTE Risk Assessment: Moderate/High Risk (score >= 2) VTE Pharmacological Exception Reason: High risk for bleeding Caprini Risk Assessment Model: Point Value = 1 Point Value = 2 Point Value = 3 Point Value = 5 Age 41-60 Minor surgery BMI > 25 kg/m2 Swollen legs Varicose veins or History of unexplained or recurrent spontaneous Oral contraceptives or hormone replacement Sepsis (< 1 month) Serious lung disease, including pneumonia (< 1 month) Abnormal pulmonary function Acute myocardial infarction Congestive heart failure (< 1 month) History of inflammatory bowel disease Medical patient at bed rest Age 61-74 Arthroscopic surgery Major open surgery (> 45 min) Laparoscopic surgery (> 45 min) Malignancy Confined to bed (> 72 hours) Immobilizing plaster cast Central venous access Age >= 75 History of VTE Family history of VTE Factor V Leiden Prothrombin [id number] Lupus anticoagulant Anticardiolipin antibodies Elevated serum homocysteine Heparin-induced thrombocytopenia Other congenital or acquired thrombophilia Stroke (< 1 month) Elective arthroplasty Hip, pelvis, or leg fracture Acute spinal cord injury (< 1 month) Prophylaxis Regimen: Total Risk Factor Score Risk Level Prophylaxis Regimen 0-1 Low Early ambulation 2 Moderate Order ONE of the following: *Sequential Compression Device (SCD) *Heparin 5000 units SQ BID 3-4 Higher Order ONE of the following medications: *Heparin 5000 units SQ TID *Enoxaparin/Lovenox 40 mg SQ daily (WT < 150 kg, CrCl > 30 mL/min) *Enoxaparin/Lovenox 30 mg SQ daily (WT < 150 kg, CrCl > 10-29 mL/min) *Enoxaparin/Lovenox 30 mg SQ BID (WT < 150 kg, CrCl > 30 mL/min) AND/OR *Sequential Compression Device (SCD) 5 or more Highest Order ONE of the following medications: *Heparin 5000 units SQ TID (Preferred with Epidurals) *Enoxaparin/Lovenox 40 mg SQ daily (WT < 150 kg, CrCl > 30 mL/min) *Enoxaparin/Lovenox 30 mg SQ daily (WT < 150 kg, CrCl > 10-29 mL/min) *Enoxaparin/Lovenox 30 mg SQ BID (WT < 150 kg, CrCl > 30 mL/min) AND *Sequential Compression Device (SCD) Assessment and Plan - Plan A/P -Cirrhosis/ ascites with possible liver mass with history of alcohol abuse- patient says that he quit last month. will consult IR for paracentesis with fluid studies- will consult GI- repeat LFT's in am. will stop IV fluid when back on diet. - Prominent portal lymphadenopathy as well as retroperitoneal and bilateral iliac lymphadenopathy on CT-possible lymphoma; will consult Oncology -hyponatremia- likely due to Cirrhosis- will start on diuretics and monitor -atrial fibrillation- continue Digoxin and Cardizem- hold aspirin- evaluated by cardiology last admission; not a good candidate for anticoagulation. -recent admission to this hospital after a fall with cervical fracture/ rib fracture/ wrist fracture; continue with pain control. consult PT/OT. -DVT prophylaxis with SCD's- Discussed Condition With: ER physician, the patient and his .
[2018-04-15] MEDS ORDERED: Sodium Chloride 0.45 % Inj 1,000 ML IV.CONT SCH (15:45)
--- NOTE | 2018-04-15 17:17 | P.CONGI ---
History of Present Illness Consult date: 04/15/18 Chief complaint: Encephalopathy,elevated bilirubin History of Present Illness: is a 72-year-old male patient who has a significant history of alcohol use and abuse, atrial flutter and recent recent hospital admission for a fall. Patient presented to the emergency room today with complaint of abdominal distention onset 2-3 months ago with swelling to both ankles and feet. Patient reports increasing abdominal distention with bloating and decreased appetite for 3 months. He denies nausea, vomiting, fever or chills. Patient states increasing abdominal girth has led to decreased appetite and shortness of breath was acute with exertion. Patient states that he has abused alcohol for an estimated 40-year period. For that time patient states he drank at least 3 shots of bourbon daily along with beer. Patient denies ever having had an EEG but reports he had a colonoscopy done 15 years ago. Patient reports abdominal bloating with no BM times 10 days states he is normally constipated and has hard stools with minimal effect provided by milk of magnesia and stool softeners. Patient denies any rectal bleeding noted. Patient states he takes aspirin 81 mg daily and no other blood thinners. He denies any known family history of liver disease or gastrointestinal disorders. This practice has been consulted to evaluate patient's abdominal distention and ascites. CT scan of abdomen and pelvis done on admission revealed the following---. Prominent portal lymphadenopathy as well as retroperitoneal and bilateral iliac lymphadenopathy. Differential diagnosis includes metastatic lymphadenopathy and lymphoma. 2.4 cm low-density lesion within the uncinate process of the pancreas which is indeterminate. Outpatient MRI of the abdomen with contrast may be helpful for further evaluation of this lesion. Large area of decreased attenuation involving the left lobe of the liver as well as enlargement of the caudate lobe. MRI of the abdomen with contrast may be helpful to rule out subtle underlying mass if clinically indicated. Enlarged, heterogeneous and nodular in contour indicating cirrhosis. Chronic calcific pancreatitis. 9 mm calcified nonobstructing right pelvic alyceal system calculus and 6 mm calcified nonobstructing right renal calculus. Extensive ascites. Bilateral inguinal hernias. Tiny 11 mm right adrenal nodule consistent with probable adrenal adenoma. Cholelithiasis. Moderate-sized left pleural effusion and tiny right pleural effusion with adjacent compressive atelectasis. Coronary artery calcifications. Degenerative changes and scoliosis of the thoracolumbar spine. WBC 11.7 hemoglobin 11.8 hematocrit 33.8 INR 1.3 total bilirubin 4.6 direct bilirubin 3.3 indirect bilirubin 1.3 AST 69 ALT 42 alk phos 312 ammonia 36 lipase 154 albumin 2.0. At this time we will follow patient and order liver workup and immunology. <Neha Aldana - Last Filed: 04/15/18 16:58> Review of Systems All other systems reviewed negative except as stated in HPI <Neha Aldana - Last Filed: 04/15/18 16:58> PMFSH - History History Provided By: Patient - Medical History Medical History: Medical History (Last Updated 04/15/18 @ 15:32 by Shahnaz Horn MD) Afib Alcohol abuse Liver disease Rib fracture Wrist fracture Bipolar disorder GERD (gastroesophageal reflux disease) Gallbladder disease - Family History Family History: Family History (Last Reviewed 04/15/18 @ 14:24 by Eun Salmeron MD) Mother Cancer Father Pancreatitis, alcoholic, acute - Tobacco History Second Hand Smoke Exposure: Yes Tobacco Use In Past 30 Days: Yes Smoking Status: Current every day smoker Tobacco Type: Cigarettes Packs Per Day: 1 years: 55 - Alcohol History How Often Do You Have a Drink Containing Alcohol: Never - Substance Use History Substance History: Past History - Substance Use Type Alcohol Status: Early Remission Route Used: By Mouth Last Used: quit in february, previous daily user Reason for Use: Feels Good - Travel History History of Recent Travel: No Recent Travel in the [facility] Within the Last 8 Weeks: No - Immunization History Tetanus Immunization: Unsure Hx Influenza Vaccine This Season: No <Neha Aldana - Last Filed: 04/15/18 16:58> - Medical History Medical History: Medical History (Last Updated 04/15/18 @ 15:32 by Shahnaz Horn MD) Afib Alcohol abuse Liver disease Rib fracture Wrist fracture Bipolar disorder GERD (gastroesophageal reflux disease) Gallbladder disease - Family History Family History: Family History (Last Reviewed 04/15/18 @ 14:24 by Eun Salmeron MD) Mother Cancer Father Pancreatitis, alcoholic, acute <Freddie Brown - Last Filed: 04/15/18 17:28> Medications and Allergies Active Medications: Active Medications Digoxin (Lanoxin) 125 mcg PO DAILY VIVIANE Diltiazem HCl (Cardizem Cd 24hr) 240 mg PO DAILY VIVIANE Furosemide (Lasix Inj) 40 mg IV.PUSH DAILY VIVIANE Ondansetron HCl (Zofran Inj) 4 mg IV.PUSH Q8H PRN PRN Reason: nausea Oxycodone HCl (Roxicodone) 5 mg PO Q6H PRN PRN Reason: pain 4-10 Sodium Chloride (Ns Flush) 2 ml IV.FLUSH PRN PRN PRN Reason: FLUSH AFTER USING IV ACCESS Tamsulosin HCl (Flomax) 0.4 mg PO DAILY VIVIANE Thiamine HCl (Vitamin B1) 100 mg PO DAILY VIVIANE <Neha Aldana - Last Filed: 04/15/18 16:58> Active Medications: Active Medications Digoxin (Lanoxin) 125 mcg PO DAILY VIVIANE Diltiazem HCl (Cardizem Cd 24hr) 240 mg PO DAILY VIVIANE Furosemide (Lasix Inj) 40 mg IV.PUSH DAILY VIVIANE Lactulose (Lactulose Liq) 30 ml PO BID VIVIANE Nadolol (Corgard) 20 mg PO DAILY VIVIANE Ondansetron HCl (Zofran Inj) 4 mg IV.PUSH Q8H PRN PRN Reason: nausea Oxycodone HCl (Roxicodone) 5 mg PO Q6H PRN PRN Reason: pain 4-10 Rifaximin (Xifaxan) 550 mg PO Q12HR VIVIANE Sodium Chloride (Ns Flush) 2 ml IV.FLUSH PRN PRN PRN Reason: FLUSH AFTER USING IV ACCESS Spironolactone (Aldactone) 100 mg PO DAILY VIVIANE Tamsulosin HCl (Flomax) 0.4 mg PO DAILY VIVIANE Thiamine HCl (Vitamin B1) 100 mg PO DAILY [facility] <Freddie Brown - Last Filed: 04/15/18 17:28> Allergies Allergy/AdvReac Type Severity Reaction Status Date / Time fire ant Allergy Difficulty Verified 03/03/18 16:44 Breathing Home Medications Medication Instructions Recorded Confirmed Type digoxin 0.125 mg PO DAILY 04/15/18 04/15/18 History diltiazem HCl [Cardizem CD] 240 mg PO DAILY 04/15/18 04/15/18 History tamsulosin 0.4 mg PO DAILY 04/15/18 04/15/18 History thiamine HCl (vitamin B1) 100 mg PO DAILY 04/15/18 04/15/18 History Exam Vital signs: Vital Signs 04/15/18 10:09 04/15/18 10:17 04/15/18 14:08 Temperature 97.5 F L Pulse Rate 108 H 106 H 93 H Respiratory Rate 20 18 18 Blood Pressure 111/61 110/61 112/75 Pulse Oximetry 99 98 95 Intake & Output 04/14/18 04/15/18 04/15/18 18:59 06:59 18:59 Weight 82.554 kg - Constitutional mild distress - Routine HEENT Exam Head: Present: normocephalic Eye: Present: conjunctival icterus - Routine Respiratory Exam Present: CTA bilaterally Comments: sob on exertiion and when laying supine - Routine Cardiovascular Exam Present: RRR - Routine Abdominal Exam Present: normoactive bowel sounds, distended, firm - Routine Extremities Exam Present: edema, full ROM - Routine Skin Exam Present: dry, warm, jaundice Comments: mild - Routine Neurological Exam Present: alert, oriented X3 <Aldana,Neha - Last Filed: 04/15/18 16:58> Vital signs: Vital Signs 04/15/18 10:09 04/15/18 10:17 04/15/18 14:08 Temperature 97.5 F L Pulse Rate 108 H 106 H 93 H Respiratory Rate 20 18 18 Blood Pressure 111/61 110/61 112/75 Pulse Oximetry 99 98 95 04/15/18 16:45 Temperature 97.3 F L Pulse Rate 105 H Respiratory Rate 20 Blood Pressure 140/75 Pulse Oximetry 97 Intake & Output 04/14/18 04/15/18 04/15/18 18:59 06:59 18:59 Weight 82.554 kg Other: Date of Last Bowel Movement 04/12/18 <Freddie Brown E - Last Filed: 04/15/18 17:28> Results - Labs CBC & Chem 7: 04/15/18 13:13 04/15/18 12:06 Labs: Laboratory Results - last 24 hr 04/15/18 04/15/18 04/15/18 12:06 12:06 12:23 WBC RBC Hgb Hct MCV MCH MCHC RDW Plt Count MPV Neut % (Auto) Lymph % (Auto) [place] % (Auto) Eos % (Auto) Baso % (Auto) Neut # (Auto) Lymph # (Auto) [place] # (Auto) Eos # (Auto) Baso # (Auto) WBC Differential Differential Comment PT INR APTT Sodium 127 L Potassium 5.1 Chloride 94 L Carbon Dioxide 22.1 Anion Gap 11 BUN 12 Creatinine 0.84 Estimated GFR Greater than 89 Random Glucose 124 H Calcium 8.1 L Total Bilirubin 4.6 H Direct Bilirubin 3.3 H Indirect Bilirubin 1.3 H AST 69 H ALT 42 Alkaline Phosphatase 312 H Ammonia 36 H Total Protein 7.3 Albumin 2.0 L Lipase 154 Urine Color Reyna Urine Clarity Hazy H Urine pH 5.0 Ur Specific [place] 1.021 Urine Protein 30 H Urine Glucose (UA) Negative Urine Ketones Negative Urine Occult Blood Small H Urine Nitrate Negative Urine Bilirubin Small H Urine Ictotest Positive H Urine Urobilinogen 4 or greater Ur Leukocyte Esterase Negative Urine RBC 12 H Urine WBC 8 H Ur Squamous Epith Cells 1 Hyaline Casts 19 Urine Mucus Few H Micro UA Comment Culture not ind Ur Microscopic Review Not Reportable Urine Culture Comments Culture not ind 04/15/18 04/15/18 13:13 13:13 WBC 11.7 H RBC 3.80 L Hgb 11.8 L Hct 33.8 L MCV 89.0 MCH 31.1 MCHC 34.9 RDW 14.4 Plt Count 182 MPV 9.9 Neut % (Auto) 85.8 H Lymph % (Auto) 6.[address] % (Auto) 6.4 Eos % (Auto) 0.1 Baso % (Auto) 0.8 Neut # (Auto) 10.1 H Lymph # (Auto) 0.[address] # (Auto) 0.7 Eos # (Auto) 0.0 Baso # (Auto) 0.1 WBC Differential . Differential Comment Auto diff final PT 13.6 H INR 1.3 APTT 28.0 Sodium Potassium Chloride Carbon Dioxide Anion Gap BUN Creatinine Estimated GFR Random Glucose Calcium Total Bilirubin Direct Bilirubin Indirect Bilirubin AST ALT Alkaline Phosphatase Ammonia Total Protein Albumin Lipase Urine Color Urine Clarity Urine pH Ur Specific [place] Urine Protein Urine Glucose (UA) Urine Ketones Urine Occult Blood Urine Nitrate Urine Bilirubin Urine Ictotest Urine Urobilinogen Ur Leukocyte Esterase Urine RBC Urine WBC Ur Squamous Epith Cells Hyaline Casts Urine Mucus Micro UA Comment Ur Microscopic Review Urine Culture Comments - Imaging Impressions Abdomen/Pelvis CT 04/15/18 11:42 CONCLUSION: 1. Prominent portal lymphadenopathy as well as retroperitoneal and bilateral iliac lymphadenopathy. Differential diagnosis includes metastatic lymphadenopathy and lymphoma. 2. 2.4 cm low-density lesion within the uncinate process of the pancreas which is indeterminate. Outpatient MRI of the abdomen with contrast may be helpful for further evaluation of this lesion. 3. Large area of decreased attenuation involving the left lobe of the liver as well as enlargement of the caudate lobe. MRI of the abdomen with contrast may be helpful to rule out subtle underlying mass if clinically indicated. 4. Enlarged, heterogeneous and nodular in contour indicating cirrhosis. 5. Chronic calcific pancreatitis. 6. 9 mm calcified nonobstructing right pelvicalyceal system calculus and 6 mm calcified nonobstructing right renal calculus. 7. Extensive ascites. 8. Bilateral inguinal hernias. 9. Tiny 11 mm right adrenal nodule consistent with probable adrenal adenoma. 10. Cholelithiasis. 11. Moderate-sized left pleural effusion and tiny right pleural effusion with adjacent compressive atelectasis. 12. Coronary artery calcifications. 13. Degenerative changes and scoliosis of the thoracolumbar spine. <Neha Aldana - Last Filed: 04/15/18 16:58> - Labs CBC & Chem 7: 04/15/18 13:13 04/15/18 12:06 Labs: Laboratory Results - last 24 hr 04/15/18 04/15/18 04/15/18 12:06 12:06 12:23 WBC RBC Hgb Hct MCV MCH MCHC RDW Plt Count MPV Neut % (Auto) Lymph % (Auto) [place] % (Auto) Eos % (Auto) Baso % (Auto) Neut # (Auto) Lymph # (Auto) [place] # (Auto) Eos # (Auto) Baso # (Auto) WBC Differential Differential Comment PT INR APTT Sodium 127 L Potassium 5.1 Chloride 94 L Carbon Dioxide 22.1 Anion Gap 11 BUN 12 Creatinine 0.84 Estimated GFR Greater than 89 Random Glucose 124 H Calcium 8.1 L Total Bilirubin 4.6 H Direct Bilirubin 3.3 H Indirect Bilirubin 1.3 H AST 69 H ALT 42 Alkaline Phosphatase 312 H Ammonia 36 H Total Protein 7.3 Albumin 2.0 L Lipase 154 Urine Color Reyna Urine Clarity Hazy H Urine pH 5.0 Ur Specific [place] 1.021 Urine Protein 30 H Urine Glucose (UA) Negative Urine Ketones Negative Urine Occult Blood Small H Urine Nitrate Negative Urine Bilirubin Small H Urine Ictotest Positive H Urine Urobilinogen 4 or greater Ur Leukocyte Esterase Negative Urine RBC 12 H Urine WBC 8 H Ur Squamous Epith Cells 1 Hyaline Casts 19 Urine Mucus Few H Micro UA Comment Culture not ind Ur Microscopic Review Not Reportable Urine Culture Comments Culture not ind 04/15/18 04/15/18 13:13 13:13 WBC 11.7 H RBC 3.80 L Hgb 11.8 L Hct 33.8 L MCV 89.0 MCH 31.1 MCHC 34.9 RDW 14.4 Plt Count 182 MPV 9.9 Neut % (Auto) 85.8 H Lymph % (Auto) 6.[address] % (Auto) 6.4 Eos % (Auto) 0.1 Baso % (Auto) 0.8 Neut # (Auto) 10.1 H Lymph # (Auto) 0.[address] [place] # (Auto) 0.7 Eos # (Auto) 0.0 Baso # (Auto) 0.1 WBC Differential . Differential Comment Auto diff final PT 13.6 H INR 1.3 APTT 28.0 Sodium Potassium Chloride Carbon Dioxide Anion Gap BUN Creatinine Estimated GFR Random Glucose Calcium Total Bilirubin Direct Bilirubin Indirect Bilirubin AST ALT Alkaline Phosphatase Ammonia Total Protein Albumin Lipase Urine Color Urine Clarity Urine pH Ur Specific [place] Urine Protein Urine Glucose (UA) Urine Ketones Urine Occult Blood Urine Nitrate Urine Bilirubin Urine Ictotest Urine Urobilinogen Ur Leukocyte Esterase Urine RBC Urine WBC Ur Squamous Epith Cells Hyaline Casts Urine Mucus Micro UA Comment Ur Microscopic Review Urine Culture Comments - Imaging Impressions Abdomen/Pelvis CT 04/15/18 11:42 CONCLUSION: 1. Prominent portal lymphadenopathy as well as retroperitoneal and bilateral iliac lymphadenopathy. Differential diagnosis includes metastatic lymphadenopathy and lymphoma. 2. 2.4 cm low-density lesion within the uncinate process of the pancreas which is indeterminate. Outpatient MRI of the abdomen with contrast may be helpful for further evaluation of this lesion. 3. Large area of decreased attenuation involving the left lobe of the liver as well as enlargement of the caudate lobe. MRI of the abdomen with contrast may be helpful to rule out subtle underlying mass if clinically indicated. 4. Enlarged, heterogeneous and nodular in contour indicating cirrhosis. 5. Chronic calcific pancreatitis. 6. 9 mm calcified nonobstructing right pelvicalyceal system calculus and 6 mm calcified nonobstructing right renal calculus. 7. Extensive ascites. 8. Bilateral inguinal hernias. 9. Tiny 11 mm right adrenal nodule consistent with probable adrenal adenoma. 10. Cholelithiasis. 11. Moderate-sized left pleural effusion and tiny right pleural effusion with adjacent compressive atelectasis. 12. Coronary artery calcifications. 13. Degenerative changes and scoliosis of the thoracolumbar spine. <Freddie Brown - Last Filed: 04/15/18 17:28> Assessment and Plan (1) Alcoholic hepatitis Status: Acute Code(s): K70.10 - Alcoholic hepatitis without ascites (2) Alcoholic cirrhosis Status: Acute Code(s): K70.30 - Alcoholic cirrhosis of liver without ascites - Plan is a 72-year-old male patient who has a significant history of alcohol use and abuse, atrial flutter and recent recent hospital admission for a fall. Patient presented to the emergency room today with complaint of abdominal distention onset 2-3 months ago with swelling to both ankles and feet. Patient reports increasing abdominal distention with bloating and decreased appetite for 3 months. He denies nausea, vomiting, fever or chills. Patient states increasing abdominal girth has led to decreased appetite and shortness of breath was acute with exertion. Patient states that he has abused alcohol for an estimated 40-year period. For that time patient states he drank at least 3 shots of bourbon daily along with beer. Patient denies ever having had an EEG but reports he had a colonoscopy done 15 years ago. Patient reports abdominal bloating with no BM times 10 days states he is normally constipated and has hard stools with minimal effect provided by milk of magnesia and stool softeners. Patient denies any rectal bleeding noted. Patient states he takes aspirin 81 mg daily and no other blood thinners. He denies any known family history of liver disease or gastrointestinal disorders. This practice has been consulted to evaluate patient's abdominal distention and ascites. CT scan of abdomen and pelvis done on admission revealed the following---. Prominent portal lymphadenopathy as well as retroperitoneal and bilateral iliac lymphadenopathy. Differential diagnosis includes metastatic lymphadenopathy and lymphoma. 2.4 cm low-density lesion within the uncinate process of the pancreas which is indeterminate. Outpatient MRI of the abdomen with contrast may be helpful for further evaluation of this lesion. Large area of decreased attenuation involving the left lobe of the liver as well as enlargement of the caudate lobe. MRI of the abdomen with contrast may be helpful to rule out subtle underlying mass if clinically indicated. Enlarged, heterogeneous and nodular in contour indicating cirrhosis. Chronic calcific pancreatitis. 9 mm calcified nonobstructing right pelvic alyceal system calculus and 6 mm calcified nonobstructing right renal calculus. Extensive ascites. Bilateral inguinal hernias. Tiny 11 mm right adrenal nodule consistent with probable adrenal adenoma. Cholelithiasis. Moderate-sized left pleural effusion and tiny right pleural effusion with adjacent compressive atelectasis. Coronary artery calcifications. Degenerative changes and scoliosis of the thoracolumbar spine. WBC 11.7 hemoglobin 11.8 hematocrit 33.8 INR 1.3 total bilirubin 4.6 direct bilirubin 3.3 indirect bilirubin 1.3 AST 69 ALT 42 alk phos 312 ammonia 36 lipase 154 albumin 2.0. At this time we will follow patient and order liver workup and immunology. Plan: Low-sodium diet Monitor hepatic function Large amount of ascites noted on CAT scan, IR has been consulted for paracentesis, consider liver biopsy Patient started on lactulose for elevated ammonia level Rifaximin Nadolol Continue IV Lasix Spironolactone Outpatient MRI of the abdomen with contrast may be helpful for further evaluation of 2.4 cm low-density lesion of the pancreas Supportive care Further recommendations to follow after work up completed This patient has been seen by myself and Dr. Brown and this note is written on his behalf - Attending Attestation Dr. Brown <Neha Aldana - Last Filed: 04/15/18 16:58> (1) Alcoholic hepatitis Status: Acute Code(s): K70.10 - Alcoholic hepatitis without ascites (2) Alcoholic cirrhosis Status: Acute Code(s): K70.30 - Alcoholic cirrhosis of liver without ascites - Plan Patient seen and examined Agree with above Continue with current supportive care Monitor labs New-onset ascites with abnormality of the liver noted on imaging Liver workup in progress but most likely secondary to alcohol Paracentesis has been ordered we will need to add cytology to rule out potential malignancy Tumor markers ordered we will await results Recommend low-salt diet and diuretics to help control ascites Recommend no further alcohol intake, the patient tells me he stopped 3 months ago <Freddie Brown - Last Filed: 04/15/18 17:28>
[2018-04-15] MEDS: Nadolol 20 MG Tablet PO SCH (17:46)
[2018-04-15 19:48] LABS: % Iron Saturation 25.5 % (20-50)
[2018-04-15 20:02] LABS: Alpha Fetoprotein Tumor Marker 1574.4 ng/mL (0.5-8.0)
[2018-04-15] MEDS: rifAXIMin 550 MG Tablet PO SCH (20:47)
--- NOTE | 2018-04-15 21:06 | MB ---
cc: Cheyanne Ly MD DATE: 04/15/2018 CHIEF COMPLAINT: 1. Abdominal masses, suspicious for a malignancy. 2. Cirrhosis. 3. Anemia. HISTORY OF PRESENT ILLNESS: Mr. Dunn a 72-year-old gentleman with a history of alcohol abuse, atrial flutter, liver disease, suspect liver cirrhosis, bipolar disorder, acid reflux. He was recently hospitalized in the inpatient rehab facility after a fall at home. He presented on 02/14/2018 after falling down stairs. He had a left rib fracture, left wrist fracture, cervical spine fracture, questionable subarachnoid hemorrhage and questionable intra-abdominal injury. He was hyponatremic and anemic at that time and then he was transferred to our rehab facility. He was admitted to this hospital on 04/15/2018 with abdominal distention, generalized abdominal pain, shortness of breath. He has been seen by the gastroenterology team, who has consulted IR for a paracentesis and started him on rifaximin, nadolol, Aldactone, IV Lasix. The majority of the history and physical obtained from chart review. REVIEW OF SYSTEMS: As above and negative except for those mentioned in the HPI. PAST MEDICAL HISTORY: Atrial fibrillation, alcohol abuse, liver disease, rib fracture status post fall, bipolar disorder. FAMILY HISTORY: The patient denies any known family history of malignancy. SOCIAL HISTORY: The patient is an active smoker and an active drinker. He declined to tell me how much he smoked or drank. He reports that he has a good support system with his . He also lives at home with his 2 grandchildren. MEDICATIONS: Include: 1. Digoxin. 2. Diltiazem. 3. Lasix. 4. Lactulose. 5. Nadolol. 6. Zofran. 7. Oxycodone. 8. Rifaximin. 9. Spironolactone. 10. Tamsulosin. 11. Thiamine. PHYSICAL EXAMINATION: VITAL SIGNS: Temperature 97.3, pulse 105, respiratory rate 20, blood pressure 140/75. GENERAL: Disheveled, chronically ill-appearing man in no distress. HEAD: Normocephalic, atraumatic. NECK: Cervical collar in place. CARDIOVASCULAR: Regular rate and rhythm. No murmurs. RESPIRATORY: Clear to auscultation bilaterally. ABDOMEN: Protuberant, distended, tender to palpation. EXTREMITIES: No edema. NEUROLOGIC: Grossly nonfocal. PSYCHIATRIC: Poor recent and remote memory. SKIN: Jaundice present. LABORATORY STUDIES: White blood cell count 11.7, hemoglobin 11.8, platelet count 182,000. Coags with PT 13.6, INR 1.3, PTT 28. Chemistry studies, iron 41, total iron binding capacity 161, percent sat 25.5, ferritin 998. AFP is elevated at 1574. CEA is 2.9. CA 19-9 is pending. TSH is within normal limits. Free T4 is within normal limits. Sodium 127, potassium 5.1, creatinine 0.84, total bilirubin 4.6, direct bilirubin 3.3, indirect bilirubin 1.3, AST 69, ALT 42, alkaline phosphatase 312, total protein 7.3, albumin 2. CT scan of the abdomen and pelvis showed an enlarged heterogeneous nodular liver, area of decreased attenuation involving the left lobe of the liver as well as enlargement of the caudate lobe, possible underlying mass. Very prominent portal lymphadenopathy is noted with the 2 largest lymph node measuring 4.1 cm and 3.7 cm, large amount of ascites, 2.4 cm low density lesion within the uncinate process of the pancreas which is indeterminate. Retroperitoneal and bilateral iliac lymphadenopathy is noted. The largest lymph node measures 2.5 cm and is located in the left iliac region. ASSESSMENT AND PLAN: We will order an MRI of the abdomen to further evaluate liver lesion and pancreatic lesion. We will also obtain a CT scan of the chest. We will check vitamin B12 and folate. We will follow up results of imaging studies to determine best place to perform biopsy. MD CAMELIA Flanagan/elena , 08:12 PM , 08:23 PM
[2018-04-15 21:45] LABS: Folate 4.3 ng/mL (3.1-17.5)
[2018-04-16 08:06] LABS: Baso # (Auto) 0.1 th/mm3 (0.0-0.2); Baso % (Auto) 0.7 % (0.0-2.0); Eos % (Auto) 0.2 % (0.0-4.0); Hematocrit 36.6 % (39.0-51.0); Hemoglobin 12.2 gm/dL (13.0-17.0); Lymph # (Auto) 0.9 th/mm3 (1.0-4.8); Lymph % (Auto) 6.6 % (9.0-44.0); Mean Corpuscular HGB Conc 33.3 % (32.0-36.0); Mean Corpuscular Hemoglobin 30.1 pg (27.0-34.0); Mean Corpuscular Volume 90.6 fL (80.0-100.0); Mean Platelet Volume 10.2 fL (7.0-11.0); Mono # (Auto) 1.1 th/mm3 (0.0-0.9); Mono % (Auto) 7.9 % (0.0-8.0); Neut % (Auto) 84.6 % (16.0-70.0); Platelet Count 226 th/mm3 (150-450); Red Blood Count 4.04 mil/mm3 (4.50-5.90); Red Cell Distribution Width 14.6 % (11.6-17.2); White Blood Count 14.2 th/mm3 (4.0-11.0)
[2018-04-16 08:30] LABS: Albumin 1.7 g/dL (3.4-5.0); Anion Gap 10 meq/L (5-15); Blood Urea Nitrogen 15 mg/dL (7-18); Calcium 7.9 mg/dL (8.5-10.1); Carbon Dioxide 20.5 meq/L (21.0-32.0); Chloride 99 meq/L (98-107); Glucose,Random 90 mg/dL (74-106); Potassium 5.3 meq/L (3.5-5.1); Sodium 129 meq/L (136-145)
[2018-04-16 08:34] LABS: Alkaline Phosphatase 235 U/L (45-117); Aspartate Aminotransferase 55 U/L (15-37); Glomerular Filtration Rate Greater Than 89 mL/min (>89); Total Protein 6.3 g/dL (6.4-8.2)
[2018-04-16 08:44] LABS: Alanine Aminotransferase 32 U/L (12-78)
[2018-04-16] MEDS: Digoxin 125 MCG Tablet PO SCH (09:14)
[2018-04-16] MEDS: rifAXIMin 550 MG Tablet PO SCH ×2 (09:14→20:50)
[2018-04-16] MEDS: Nadolol 20 MG Tablet PO SCH (09:14)
[2018-04-16] MEDS: dilTIAZem CD 240 MG Capsule PO SCH (09:14)
--- NOTE | 2018-04-16 09:50 | P.PNIM ---
Subjective Interval history: f/u; ascites in no acute distress. but uncomfortable with abdominal distention. no fever. Physical Exam Vital signs: Vital Signs 04/15/18 10:09 04/15/18 10:17 04/15/18 14:08 Temperature 97.5 F L Pulse Rate 108 H 106 H 93 H Respiratory Rate 20 18 18 Blood Pressure 111/61 110/61 112/75 Pulse Oximetry 99 98 95 04/15/18 16:45 04/15/18 18:30 04/15/18 20:00 Temperature 97.3 F L 97.6 F Pulse Rate 105 H 66 Respiratory Rate 20 18 16 Blood Pressure 140/75 112/55 L Pulse Oximetry 97 97 04/16/18 00:00 04/16/18 08:00 Temperature 98.3 F 97.4 F L Pulse Rate 102 H 101 H Respiratory Rate 17 19 Blood Pressure 116/70 121/72 Pulse Oximetry 98 92 L Intake & Output 04/15/18 04/16/18 04/16/18 18:59 06:59 18:59 Intake Total 240 / 240 Balance 240 / 240 Weight 82.554 kg 87.3 kg Intake: Oral 240 / 240 Other: # Voids 1 4 Date of Last Bowel Movement 04/12/18 04/12/18 04/12/18 - Constitutional no acute distress - Routine Respiratory Exam Present: CTA bilaterally - Routine Cardiovascular Exam Present: RRR - Routine Abdominal Exam Present: soft, distended - Routine Extremities Exam Comments: bilateral pedal edema. - Routine Neurological Exam Present: alert, oriented X3 Results - Labs CBC & Chem 7: 04/16/18 06:57 04/16/18 06:57 Laboratory Results - last 24 hr 04/15/18 04/15/18 04/15/18 12:06 12:06 12:23 WBC RBC Hgb Hct MCV MCH MCHC RDW Plt Count MPV Neut % (Auto) Lymph % (Auto) [place] % (Auto) Eos % (Auto) Baso % (Auto) Neut # (Auto) Lymph # (Auto) [place] # (Auto) Eos # (Auto) Baso # (Auto) WBC Differential Differential Comment ESR PT INR APTT Sodium 127 L Potassium 5.1 Chloride 94 L Carbon Dioxide 22.1 Anion Gap 11 BUN 12 Creatinine 0.84 Estimated GFR Greater than 89 Random Glucose 124 H Calcium 8.1 L Iron TIBC % Saturation Ferritin Total Bilirubin 4.6 H Direct Bilirubin 3.3 H Indirect Bilirubin 1.3 H AST 69 H ALT 42 Alkaline Phosphatase 312 H Ammonia 36 H Total Protein 7.3 Albumin 2.0 L Amylase Lipase 154 Tumor Marker AFP Carcinoembryonic Ag CA 19-9 Antigen Vitamin B12 Folate Urine Color Reyna Urine Clarity Hazy H Urine pH 5.0 Ur Specific [place] 1.021 Urine Protein 30 H Urine Glucose (UA) Negative Urine Ketones Negative Urine Occult Blood Small H Urine Nitrate Negative Urine Bilirubin Small H Urine Ictotest Positive H Urine Urobilinogen 4 or greater Ur Leukocyte Esterase Negative Urine RBC 12 H Urine WBC 8 H Ur Squamous Epith Cells 1 Hyaline Casts 19 Urine Mucus Few H Micro UA Comment Culture not ind Ur Microscopic Review Not Reportable Urine Culture Comments Culture not ind 04/15/18 04/15/18 04/15/18 13:13 13:13 19:02 WBC 11.7 H RBC 3.80 L Hgb 11.8 L Hct 33.8 L MCV 89.0 MCH 31.1 MCHC 34.9 RDW 14.4 Plt Count 182 MPV 9.9 Neut % (Auto) 85.8 H Lymph % (Auto) 6.9 L Barton % (Auto) 6.4 Eos % (Auto) 0.1 Baso % (Auto) 0.8 Neut # (Auto) 10.1 H Lymph # (Auto) 0.8 L [place] # (Auto) 0.7 Eos # (Auto) 0.0 Baso # (Auto) 0.1 WBC Differential . Differential Comment Auto diff final ESR PT 13.6 H INR 1.3 APTT 28.0 Sodium Potassium Chloride Carbon Dioxide Anion Gap BUN Creatinine Estimated GFR Random Glucose Calcium Iron TIBC % Saturation Ferritin Total Bilirubin Direct Bilirubin Indirect Bilirubin AST ALT Alkaline Phosphatase Ammonia 13 Total Protein Albumin Amylase Lipase Tumor Marker AFP Carcinoembryonic Ag CA 19-9 Antigen Vitamin B12 Folate Urine Color Urine Clarity Urine pH Ur Specific [place] Urine Protein Urine Glucose (UA) Urine Ketones Urine Occult Blood Urine Nitrate Urine Bilirubin Urine Ictotest Urine Urobilinogen Ur Leukocyte Esterase Urine RBC Urine WBC Ur Squamous Epith Cells Hyaline Casts Urine Mucus Micro UA Comment Ur Microscopic Review Urine Culture Comments 04/15/18 04/15/18 04/15/18 19:02 19:02 19:02 WBC RBC Hgb Hct MCV MCH MCHC RDW Plt Count MPV Neut % (Auto) Lymph % (Auto) Barton % (Auto) Eos % (Auto) Baso % (Auto) Neut # (Auto) Lymph # (Auto) [place] # (Auto) Eos # (Auto) Baso # (Auto) WBC Differential Differential Comment ESR 50 H PT INR APTT Sodium Potassium Chloride Carbon Dioxide Anion Gap BUN Creatinine Estimated GFR Random Glucose Calcium Iron 41 L TIBC 161 L % Saturation 25.5 Ferritin 998 H Total Bilirubin Direct Bilirubin Indirect Bilirubin AST ALT Alkaline Phosphatase Ammonia Total Protein Albumin Amylase 61 Lipase Tumor Marker AFP 1574.4 H Carcinoembryonic Ag CA 19-9 Antigen 86.4 H Vitamin B12 Folate Urine Color Urine Clarity Urine pH Ur Specific [place] Urine Protein Urine Glucose (UA) Urine Ketones Urine Occult Blood Urine Nitrate Urine Bilirubin Urine Ictotest Urine Urobilinogen Ur Leukocyte Esterase Urine RBC Urine WBC Ur Squamous Epith Cells Hyaline Casts Urine Mucus Micro UA Comment Ur Microscopic Review Urine Culture Comments 04/15/18 04/15/18 04/16/18 19:02 19:02 06:57 WBC RBC Hgb Hct MCV MCH MCHC RDW Plt Count MPV Neut % (Auto) Lymph % (Auto) [place] % (Auto) Eos % (Auto) Baso % (Auto) Neut # (Auto) Lymph # (Auto) [place] # (Auto) Eos # (Auto) Baso # (Auto) WBC Differential Differential Comment ESR PT INR APTT Sodium 129 L Potassium 5.3 H Chloride 99 Carbon Dioxide 20.5 L Anion Gap 10 BUN 15 Creatinine 0.71 Estimated GFR Greater than 89 Random Glucose 90 Calcium 7.9 L Iron TIBC % Saturation Ferritin Total Bilirubin 3.0 H Direct Bilirubin Indirect Bilirubin AST 55 H ALT 32 Alkaline Phosphatase 235 H Ammonia Total Protein 6.3 L D Albumin 1.7 L Amylase Lipase Tumor Marker AFP Carcinoembryonic Ag 2.9 CA 19-9 Antigen Vitamin B12 Greater than 2000 H Folate 4.3 Urine Color Urine Clarity Urine pH Ur Specific [place] Urine Protein Urine Glucose (UA) Urine Ketones Urine Occult Blood Urine Nitrate Urine Bilirubin Urine Ictotest Urine Urobilinogen Ur Leukocyte Esterase Urine RBC Urine WBC Ur Squamous Epith Cells Hyaline Casts Urine Mucus Micro UA Comment Ur Microscopic Review Urine Culture Comments 04/16/18 06:57 WBC 14.2 H RBC 4.04 L Hgb 12.2 L Hct 36.6 L MCV 90.6 MCH 30.1 MCHC 33.3 RDW 14.6 Plt Count 226 MPV 10.2 Neut % (Auto) 84.6 H Lymph % (Auto) 6.6 L Barton % (Auto) 7.9 Eos % (Auto) 0.2 Baso % (Auto) 0.7 Neut # (Auto) 12.0 H Lymph # (Auto) 0.9 L [place] # (Auto) 1.1 H Eos # (Auto) 0.0 Baso # (Auto) 0.1 WBC Differential . Differential Comment Auto diff final ESR PT INR APTT Sodium Potassium Chloride Carbon Dioxide Anion Gap BUN Creatinine Estimated GFR Random Glucose Calcium Iron TIBC % Saturation Ferritin Total Bilirubin Direct Bilirubin Indirect Bilirubin AST ALT Alkaline Phosphatase Ammonia Total Protein Albumin Amylase Lipase Tumor Marker AFP Carcinoembryonic Ag CA 19-9 Antigen Vitamin B12 Folate Urine Color Urine Clarity Urine pH Ur Specific [place] Urine Protein Urine Glucose (UA) Urine Ketones Urine Occult Blood Urine Nitrate Urine Bilirubin Urine Ictotest Urine Urobilinogen Ur Leukocyte Esterase Urine RBC Urine WBC Ur Squamous Epith Cells Hyaline Casts Urine Mucus Micro UA Comment Ur Microscopic Review Urine Culture Comments - Imaging Impressions Abdomen/Pelvis CT 04/15/18 11:42 CONCLUSION: 1. Prominent portal lymphadenopathy as well as retroperitoneal and bilateral iliac lymphadenopathy. Differential diagnosis includes metastatic lymphadenopathy and lymphoma. 2. 2.4 cm low-density lesion within the uncinate process of the pancreas which is indeterminate. Outpatient MRI of the abdomen with contrast may be helpful for further evaluation of this lesion. 3. Large area of decreased attenuation involving the left lobe of the liver as well as enlargement of the caudate lobe. MRI of the abdomen with contrast may be helpful to rule out subtle underlying mass if clinically indicated. 4. Enlarged, heterogeneous and nodular in contour indicating cirrhosis. 5. Chronic calcific pancreatitis. 6. 9 mm calcified nonobstructing right pelvicalyceal system calculus and 6 mm calcified nonobstructing right renal calculus. 7. Extensive ascites. 8. Bilateral inguinal hernias. 9. Tiny 11 mm right adrenal nodule consistent with probable adrenal adenoma. 10. Cholelithiasis. 11. Moderate-sized left pleural effusion and tiny right pleural effusion with adjacent compressive atelectasis. 12. Coronary artery calcifications. 13. Degenerative changes and scoliosis of the thoracolumbar spine. Assessment and Plan - Plan A/P -Cirrhosis/ ascites with possible liver mass with history of alcohol abuse- patient says that he quit last month. tumor markers elevated. consulted IR for paracentesis with fluid studies- continue Lasix, Aldactone, Lactulose, Rifaximin GI consult appreciated. - Prominent portal lymphadenopathy as well as retroperitoneal and bilateral iliac lymphadenopathy on CT-possible lymphoma. Oncology consult appreciated; CT chest pending. -questionable pancreatic lesion; MRI of the abdomen pending. -hyponatremia- likely due to Cirrhosis- zahra- will continue diuretics and monitor -atrial fibrillation- continue Digoxin and Cardizem- hold aspirin for now- evaluated by cardiology last admission; not a good candidate for anticoagulation. -recent admission to this hospital after a fall with cervical fracture/ rib fracture/ wrist fracture; continue with pain control. consulted PT/OT. -DVT prophylaxis with SCD's- Discharge Planning: GI/Oncology w/u in progress.
--- NOTE | 2018-04-16 11:31 | CT ---
EXAM DATE: 04/16/2018 10:46 AM EDT AGE/SEX: 72 years / Male INDICATIONS: Liver cancer; evaluate for metastases. CLINICAL DATA: This is the patient's initial encounter. Patient reports that signs and symptoms have been present for 1 day and indicates a pain score of 0/10. MEDICAL/SURGICAL HISTORY: Cirrhosis. Gastroesophageal reflux disease. Cholecystectomy. RADIATION DOSE: 14.28 CTDI (mGy) COMPARISON: Prior CT of the abdomen and pelvis performed on 04/15/2018.. TECHNIQUE: Multiple contiguous axial images were obtained through the chest during bolus infusion of 70 ml Omnipaque 350 (iohexol) nonionic water-soluble contrast as a single exam dose. Images were obtained in suspended respiration using multiple row detector helical technique. Using automated exp osure control and adjustment of the mA and/or kV according to patient size, radiation dose was kept a s low as reasonably achievable to obtain optimal diagnostic quality images. DICOM format image data is available electronically for review and comparison. FINDINGS: Lungs: The lungs are symmetrically aerated. No infiltrates or nodular densities are seen. Mediastinum: There is good visualization of the great vessels of the middle mediastinum. No evidenc e of mediastinal or hilar adenopathy/mass. Coronary artery calcification are present. Pleurae: There is a mild left pleural effusion and a minimal right pleural effusion. Axillae: Unremarkable. Bony Structures: Left-sided rib fractures are seen. There is a focal area sclerosis at the posterior lateral right sixth rib which may be from prior fracturing. Miscellaneous: The patient had a CT of the abdomen and pelvis performed yesterday. The left lobe of the liver appears enlarged. There is ascites seen in the upper abdomen. CONCLUSION: 1. No lung masses are seen. 2. Mild left pleural effusion and minimal right pleural effusion. 3. Left-sided rib fractures and focal area of sclerosis at the right sixth rib which could be from p rior fracture. Electronically signed by: Deacon Still MD 04/16/2018 11:30 AM EDT
--- NOTE | 2018-04-16 14:14 | P.PNONC ---
Subjective Interval history: Afebrile Patient resting in bed watching TV Concerned about more needles going into his body Complains of generalized body aches Willing to try paracentesis to see if this helps him breathe better Objective Vital Signs/Intake & Output: Vital Signs 04/15/18 16:45 04/15/18 18:30 04/15/18 20:00 Temperature 97.3 F L 97.6 F Pulse Rate 105 H 66 Respiratory Rate 20 18 16 Blood Pressure 140/75 112/55 L Pulse Oximetry 97 97 04/16/18 00:00 04/16/18 08:00 04/16/18 09:44 Temperature 98.3 F 97.4 F L Pulse Rate 102 H 101 H Respiratory Rate 17 19 18 Blood Pressure 116/70 121/72 Pulse Oximetry 98 92 L 04/16/18 12:00 Temperature 97.3 F L Pulse Rate 97 H Respiratory Rate 18 Blood Pressure 113/69 Pulse Oximetry 94 L Intake & Output 04/15/18 04/16/18 04/16/18 18:59 06:59 18:59 Intake Total 240 / 240 Balance 240 / 240 Weight 182 lb 192 lb 7.417 oz Intake: Oral 240 / 240 Other: # Voids 1 4 Date of Last Bowel Movement 04/12/18 04/12/18 04/12/18 Result Diagrams: 04/16/18 06:57 04/16/18 06:57 Laboratory Results: Laboratory Results - last 24 hr 04/15/18 04/15/18 04/15/18 19:02 19:02 19:02 WBC RBC Hgb Hct MCV MCH MCHC RDW Plt Count MPV Neut % (Auto) Lymph % (Auto) [place] % (Auto) Eos % (Auto) Baso % (Auto) Neut # (Auto) Lymph # (Auto) [place] # (Auto) Eos # (Auto) Baso # (Auto) WBC Differential Differential Comment ESR Sodium Potassium Chloride Carbon Dioxide Anion Gap BUN Creatinine Estimated GFR Random Glucose Calcium Iron 41 L TIBC 161 L % Saturation 25.5 Ferritin 998 H Total Bilirubin AST ALT Alkaline Phosphatase Ammonia 13 Total Protein Albumin Amylase 61 Tumor Marker AFP 1574.4 H Carcinoembryonic Ag CA 19-9 Antigen 86.4 H Vitamin B12 Folate 04/15/18 04/15/18 04/15/18 19:02 19:02 19:02 WBC RBC Hgb Hct MCV MCH MCHC RDW Plt Count MPV Neut % (Auto) Lymph % (Auto) [place] % (Auto) Eos % (Auto) Baso % (Auto) Neut # (Auto) Lymph # (Auto) [place] # (Auto) Eos # (Auto) Baso # (Auto) WBC Differential Differential Comment ESR 50 H Sodium Potassium Chloride Carbon Dioxide Anion Gap BUN Creatinine Estimated GFR Random Glucose Calcium Iron TIBC % Saturation Ferritin Total Bilirubin AST ALT Alkaline Phosphatase Ammonia Total Protein Albumin Amylase Tumor Marker AFP Carcinoembryonic Ag 2.9 CA 19-9 Antigen Vitamin B12 Greater than 2000 H Folate 4.3 04/16/18 04/16/18 06:57 06:57 WBC 14.2 H RBC 4.04 L Hgb 12.2 L Hct 36.6 L MCV 90.6 MCH 30.1 MCHC 33.3 RDW 14.6 Plt Count 226 MPV 10.2 Neut % (Auto) 84.6 H Lymph % (Auto) 6.6 L [place] % (Auto) 7.9 Eos % (Auto) 0.2 Baso % (Auto) 0.7 Neut # (Auto) 12.0 H Lymph # (Auto) 0.9 L [place] # (Auto) 1.1 H Eos # (Auto) 0.0 Baso # (Auto) 0.1 WBC Differential . Differential Comment Auto diff final ESR Sodium 129 L Potassium 5.3 H Chloride 99 Carbon Dioxide 20.5 L Anion Gap 10 BUN 15 Creatinine 0.71 Estimated GFR Greater than 89 Random Glucose 90 Calcium 7.9 L Iron TIBC % Saturation Ferritin Total Bilirubin 3.0 H AST 55 H ALT 32 Alkaline Phosphatase 235 H Ammonia Total Protein 6.3 L D Albumin 1.7 L Amylase Tumor Marker AFP Carcinoembryonic Ag CA 19-9 Antigen Vitamin B12 Folate Imaging Studies: Impressions Abdomen/Pelvis CT 04/15/18 11:42 CONCLUSION: 1. Prominent portal lymphadenopathy as well as retroperitoneal and bilateral iliac lymphadenopathy. Differential diagnosis includes metastatic lymphadenopathy and lymphoma. 2. 2.4 cm low-density lesion within the uncinate process of the pancreas which is indeterminate. Outpatient MRI of the abdomen with contrast may be helpful for further evaluation of this lesion. 3. Large area of decreased attenuation involving the left lobe of the liver as well as enlargement of the caudate lobe. MRI of the abdomen with contrast may be helpful to rule out subtle underlying mass if clinically indicated. 4. Enlarged, heterogeneous and nodular in contour indicating cirrhosis. 5. Chronic calcific pancreatitis. 6. 9 mm calcified nonobstructing right pelvicalyceal system calculus and 6 mm calcified nonobstructing right renal calculus. 7. Extensive ascites. 8. Bilateral inguinal hernias. 9. Tiny 11 mm right adrenal nodule consistent with probable adrenal adenoma. 10. Cholelithiasis. 11. Moderate-sized left pleural effusion and tiny right pleural effusion with adjacent compressive atelectasis. 12. Coronary artery calcifications. 13. Degenerative changes and scoliosis of the thoracolumbar spine. Chest CT 04/16/18 00:00 CONCLUSION: 1. No lung masses are seen. 2. Mild left pleural effusion and minimal right pleural effusion. 3. Left-sided rib fractures and focal area of sclerosis at the right sixth rib which could be from prior fracture. Medications: Active Medications Generic Name Dose Route Start Last Admin Trade Name Freq PRN Reason Stop Dose Admin Digoxin 125 mcg 04/16/18 09:00 04/16/18 09:14 Lanoxin PO 125 mcg DAILY VIVIANE Administration Diltiazem HCl 240 mg 04/16/18 09:00 04/16/18 09:14 Cardizem Cd 24hr PO 240 mg DAILY VIVIANE Administration Furosemide 40 mg 04/16/18 09:00 04/16/18 09:14 Lasix Inj IV.PUSH 40 mg DAILY VIVIANE Administration Lactulose 30 ml 04/15/18 21:00 04/16/18 09:14 Lactulose Liq PO 30 ml BID VIVIANE Administration Nadolol 20 mg 04/15/18 17:00 04/16/18 09:14 Corgard PO 20 mg DAILY VIVIANE Administration Oxycodone HCl 5 mg 04/15/18 15:51 04/16/18 09:14 Roxicodone PO 5 mg Q6H PRN Administration pain 4-10 Rifaximin 550 mg 04/15/18 21:00 04/16/18 09:14 Xifaxan PO 550 mg Q12HR VIVIANE Administration Sodium Chloride 2 ml 04/15/18 11:42 04/16/18 09:14 Ns Flush IV.FLUSH 2 ml PRN PRN Administration FLUSH AFTER USING IV ACCESS Spironolactone 100 mg 04/15/18 17:00 04/16/18 09:14 Aldactone PO 100 mg DAILY VIVIANE Administration Tamsulosin HCl 0.4 mg 04/16/18 09:00 04/16/18 09:14 Flomax PO 0.4 mg DAILY VIVIANE Administration Thiamine HCl 100 mg 04/16/18 09:00 04/16/18 09:14 Vitamin B1 PO 100 mg DAILY VIVIANE Administration Objective Remarks: GENERAL: Chronically ill-appearing older male resting in bed watching TV in no acute distress SKIN: Warm and dry. HEAD: Normocephalic. EYES: No scleral icterus. No injection or drainage. NECK: Supple, trachea midline. CARDIOVASCULAR: Regular rate and rhythm without murmurs. RESPIRATORY: Diminished anteriorly. GASTROINTESTINAL: Abdomen large and protuberant. EXTREMITIES: No cyanosis. Bilateral lower extremity ankle edema. MUSCULOSKELETAL: Weakness NEUROLOGICAL: No obvious focal deficit. Awake, alert, and oriented x3. Assessment/Plan - Plan 72-year-old male, liver disease with history of alcohol abuse, bipolar disorder and atrial flutter admitted with abdominal distention, generalized pain and shortness of breath. He was recently in rehab after he fell falling downstairs. He has elevated AFP and CA [address] the chest was negative for neoplasm 2. MRI of the abdomen pending, however patient reports he is unable to lay flat due to the size of his abdomen 3. Once we are able to do paracentesis we will send fluid for cytology. 4. Supportive care - Attending Statement The exam, history, and the medical decision-making described in the above note were completed with the assistance of the mid-level provider. I reviewed and agree with the findings presented. I attest that I had a [id number] encounter with the patient on the same day, and personally performed and documented my assessment and findings in the medical record. In bedside chair. Discomfort due to abdominal distension. CT chest with no malignancy. ACD picture. Elevated ferritin reactive due to liver disease, medication conditions no evidence of iron overload. Awaiting MRI of abdomen, patient unable to lay flat due to discomfort. Will need CT guided biopsy on Wednesday.
--- NOTE | 2018-04-16 15:09 | P.PNGI ---
Subjective Interval history: Patient laying supine in bed watching television. Spouse and granddaughter at bedside visiting. Discussed plan of care with patient and spouse. Plan for paracentesis this afternoon. <Neha Aldana - Last Filed: 04/16/18 14:58> Physical Exam Vital signs: Vital Signs 04/15/18 16:45 04/15/18 18:30 04/15/18 20:00 Temperature 97.3 F L 97.6 F Pulse Rate 105 H 66 Respiratory Rate 20 18 16 Blood Pressure 140/75 112/55 L Pulse Oximetry 97 97 04/16/18 00:00 04/16/18 08:00 04/16/18 09:44 Temperature 98.3 F 97.4 F L Pulse Rate 102 H 101 H Respiratory Rate 17 19 18 Blood Pressure 116/70 121/72 Pulse Oximetry 98 92 L 04/16/18 12:00 Temperature 97.3 F L Pulse Rate 97 H Respiratory Rate 18 Blood Pressure 113/69 Pulse Oximetry 94 L Intake & Output 04/15/18 04/16/18 04/16/18 18:59 06:59 18:59 Intake Total 240 / 240 Balance 240 / 240 Weight 82.554 kg 87.3 kg Intake: Oral 240 / 240 Other: # Voids 1 4 Date of Last Bowel Movement 04/12/18 04/12/18 04/12/18 - Constitutional mild distress Comments: Patient reports abdominal discomfort awaiting paracentesis this afternoon - Routine HEENT Exam Head: Present: normocephalic Eye: Present: conjunctival icterus - Routine Respiratory Exam Present: CTA bilaterally Comments: Patient endorses shortness of breath on exertion and certain positioning due to increased ascites - Routine Cardiovascular Exam Present: RRR - Routine Abdominal Exam Present: normoactive bowel sounds, distended. Absent: tenderness, guarding - Routine Extremities Exam Present: edema, full ROM, pulses intact Comments: Ankle edema noted bilaterally - Routine Skin Exam Present: dry, warm - Routine Neurological Exam Present: alert, oriented X3 - Detailed Neurological Exam: Coma Scale Eye Opening: Spontaneous Verbal Response: Oriented Motor Response: Obey commands Willem Coma Scale Total: 15 - Routine Psychiatric Exam Present: normal affect, cooperative <Neha Aldana - Last Filed: 04/16/18 14:58> Vital signs: Vital Signs 04/15/18 18:30 04/15/18 20:00 04/16/18 00:00 Temperature 97.6 F 98.3 F Pulse Rate 66 102 H Respiratory Rate 18 16 17 Blood Pressure 112/55 L 116/70 Pulse Oximetry 97 98 04/16/18 08:00 04/16/18 09:44 04/16/18 12:00 Temperature 97.4 F L 97.3 F L Pulse Rate 101 H 97 H Respiratory Rate 19 18 18 Blood Pressure 121/72 113/69 Pulse Oximetry 92 L 94 L 04/16/18 15:47 04/16/18 16:00 Temperature 97.4 F L Pulse Rate 68 Respiratory Rate 18 18 Blood Pressure 92/50 L Pulse Oximetry 96 Intake & Output 04/15/18 04/16/18 04/16/18 18:59 06:59 18:59 Intake Total 240 / 240 Balance 240 / 240 Weight 82.554 kg 87.3 kg Intake: Oral 240 / 240 Other: # Voids 1 4 Date of Last Bowel Movement 04/12/18 04/12/18 04/12/18 <Sabina Joseph - Last Filed: 04/16/18 17:19> Results - Labs CBC & Chem 7: 04/16/18 06:57 04/16/18 06:57 Laboratory Results - last 24 hr 04/15/18 04/15/18 04/15/18 19:02 19:02 19:02 WBC RBC Hgb Hct MCV MCH MCHC RDW Plt Count MPV Neut % (Auto) Lymph % (Auto) [place] % (Auto) Eos % (Auto) Baso % (Auto) Neut # (Auto) Lymph # (Auto) [place] # (Auto) Eos # (Auto) Baso # (Auto) WBC Differential Differential Comment ESR Sodium Potassium Chloride Carbon Dioxide Anion Gap BUN Creatinine Estimated GFR Random Glucose Calcium Iron 41 L TIBC 161 L % Saturation 25.5 Ferritin 998 H Total Bilirubin AST ALT Alkaline Phosphatase Ammonia 13 Total Protein Albumin Amylase 61 Tumor Marker AFP 1574.4 H Carcinoembryonic Ag CA 19-9 Antigen 86.4 H Vitamin B12 Folate 04/15/18 04/15/18 04/15/18 19:02 19:02 19:02 WBC RBC Hgb Hct MCV MCH MCHC RDW Plt Count MPV Neut % (Auto) Lymph % (Auto) [place] % (Auto) Eos % (Auto) Baso % (Auto) Neut # (Auto) Lymph # (Auto) [place] # (Auto) Eos # (Auto) Baso # (Auto) WBC Differential Differential Comment ESR 50 H Sodium Potassium Chloride Carbon Dioxide Anion Gap BUN Creatinine Estimated GFR Random Glucose Calcium Iron TIBC % Saturation Ferritin Total Bilirubin AST ALT Alkaline Phosphatase Ammonia Total Protein Albumin Amylase Tumor Marker AFP Carcinoembryonic Ag 2.9 CA 19-9 Antigen Vitamin B12 Greater than 2000 H Folate 4.3 04/16/18 04/16/18 06:57 06:57 WBC 14.2 H RBC 4.04 L Hgb 12.2 L Hct 36.6 L MCV 90.6 MCH 30.1 MCHC 33.3 RDW 14.6 Plt Count 226 MPV 10.2 Neut % (Auto) 84.6 H Lymph % (Auto) 6.6 L [place] % (Auto) 7.9 Eos % (Auto) 0.2 Baso % (Auto) 0.7 Neut # (Auto) 12.0 H Lymph # (Auto) 0.9 L [place] # (Auto) 1.1 H Eos # (Auto) 0.0 Baso # (Auto) 0.1 WBC Differential . Differential Comment Auto diff final ESR Sodium 129 L Potassium 5.3 H Chloride 99 Carbon Dioxide 20.5 L Anion Gap 10 BUN 15 Creatinine 0.71 Estimated GFR Greater than 89 Random Glucose 90 Calcium 7.9 L Iron TIBC % Saturation Ferritin Total Bilirubin 3.0 H AST 55 H ALT 32 Alkaline Phosphatase 235 H Ammonia Total Protein 6.3 L D Albumin 1.7 L Amylase Tumor Marker AFP Carcinoembryonic Ag CA 19-9 Antigen Vitamin B12 Folate - Imaging Impressions Abdomen/Pelvis CT 04/15/18 11:42 CONCLUSION: 1. Prominent portal lymphadenopathy as well as retroperitoneal and bilateral iliac lymphadenopathy. Differential diagnosis includes metastatic lymphadenopathy and lymphoma. 2. 2.4 cm low-density lesion within the uncinate process of the pancreas which is indeterminate. Outpatient MRI of the abdomen with contrast may be helpful for further evaluation of this lesion. 3. Large area of decreased attenuation involving the left lobe of the liver as well as enlargement of the caudate lobe. MRI of the abdomen with contrast may be helpful to rule out subtle underlying mass if clinically indicated. 4. Enlarged, heterogeneous and nodular in contour indicating cirrhosis. 5. Chronic calcific pancreatitis. 6. 9 mm calcified nonobstructing right pelvicalyceal system calculus and 6 mm calcified nonobstructing right renal calculus. 7. Extensive ascites. 8. Bilateral inguinal hernias. 9. Tiny 11 mm right adrenal nodule consistent with probable adrenal adenoma. 10. Cholelithiasis. 11. Moderate-sized left pleural effusion and tiny right pleural effusion with adjacent compressive atelectasis. 12. Coronary artery calcifications. 13. Degenerative changes and scoliosis of the thoracolumbar spine. Chest CT 04/16/18 00:00 CONCLUSION: 1. No lung masses are seen. 2. Mild left pleural effusion and minimal right pleural effusion. 3. Left-sided rib fractures and focal area of sclerosis at the right sixth rib which could be from prior fracture. <Neha Aldana - Last Filed: 04/16/18 14:58> - Labs CBC & Chem 7: 04/16/18 06:57 04/16/18 06:57 Laboratory Results - last 24 hr 04/15/18 04/15/18 04/15/18 19:02 19:02 19:02 WBC RBC Hgb Hct MCV MCH MCHC RDW Plt Count MPV Neut % (Auto) Lymph % (Auto) [place] % (Auto) Eos % (Auto) Baso % (Auto) Neut # (Auto) Lymph # (Auto) [place] # (Auto) Eos # (Auto) Baso # (Auto) WBC Differential Differential Comment ESR Sodium Potassium Chloride Carbon Dioxide Anion Gap BUN Creatinine Estimated GFR Random Glucose Calcium Iron 41 L TIBC 161 L % Saturation 25.5 Ferritin 998 H Total Bilirubin AST ALT Alkaline Phosphatase Ammonia 13 Total Protein Albumin Amylase 61 Tumor Marker AFP 1574.4 H Carcinoembryonic Ag CA 19-9 Antigen 86.4 H Vitamin B12 Folate 04/15/18 04/15/18 04/15/18 19:02 19:02 19:02 WBC RBC Hgb Hct MCV MCH MCHC RDW Plt Count MPV Neut % (Auto) Lymph % (Auto) [place] % (Auto) Eos % (Auto) Baso % (Auto) Neut # (Auto) Lymph # (Auto) [place] # (Auto) Eos # (Auto) Baso # (Auto) WBC Differential Differential Comment ESR 50 H Sodium Potassium Chloride Carbon Dioxide Anion Gap BUN Creatinine Estimated GFR Random Glucose Calcium Iron TIBC % Saturation Ferritin Total Bilirubin AST ALT Alkaline Phosphatase Ammonia Total Protein Albumin Amylase Tumor Marker AFP Carcinoembryonic Ag 2.9 CA 19-9 Antigen Vitamin B12 Greater than 2000 H Folate 4.3 04/16/18 04/16/18 06:57 06:57 WBC 14.2 H RBC 4.04 L Hgb 12.2 L Hct 36.6 L MCV 90.6 MCH 30.1 MCHC 33.3 RDW 14.6 Plt Count 226 MPV 10.2 Neut % (Auto) 84.6 H Lymph % (Auto) 6.6 L [place] % (Auto) 7.9 Eos % (Auto) 0.2 Baso % (Auto) 0.7 Neut # (Auto) 12.0 H Lymph # (Auto) 0.9 L [place] # (Auto) 1.1 H Eos # (Auto) 0.0 Baso # (Auto) 0.1 WBC Differential . Differential Comment Auto diff final ESR Sodium 129 L Potassium 5.3 H Chloride 99 Carbon Dioxide 20.5 L Anion Gap 10 BUN 15 Creatinine 0.71 Estimated GFR Greater than 89 Random Glucose 90 Calcium 7.9 L Iron TIBC % Saturation Ferritin Total Bilirubin 3.0 H AST 55 H ALT 32 Alkaline Phosphatase 235 H Ammonia Total Protein 6.3 L D Albumin 1.7 L Amylase Tumor Marker AFP Carcinoembryonic Ag CA 19-9 Antigen Vitamin B12 Folate - Imaging Impressions Chest CT 04/16/18 00:00 CONCLUSION: 1. No lung masses are seen. 2. Mild left pleural effusion and minimal right pleural effusion. 3. Left-sided rib fractures and focal area of sclerosis at the right sixth rib which could be from prior fracture. <Sabina Joseph - Last Filed: 04/16/18 17:19> Assessment and Plan (1) Alcoholic hepatitis Status: Acute Code(s): K70.10 - Alcoholic hepatitis without ascites (2) Alcoholic cirrhosis Status: Acute Code(s): K70.30 - Alcoholic cirrhosis of liver without ascites - Plan is a 72-year-old male patient who has a significant history of alcohol use and abuse, atrial flutter and recent recent hospital admission for a fall. Patient presented to the emergency room today with complaint of abdominal distention onset 2-3 months ago with swelling to both ankles and feet. Patient reports increasing abdominal distention with bloating and decreased appetite for 3 months. He denies nausea, vomiting, fever or chills. Patient states increasing abdominal girth has led to decreased appetite and shortness of breath was acute with exertion. Patient states that he has abused alcohol for an estimated 40-year period. For that time patient states he drank at least 3 shots of bourbon daily along with beer. Patient denies ever having had an EEG but reports he had a colonoscopy done 15 years ago. Patient reports abdominal bloating with no BM times 10 days states he is normally constipated and has hard stools with minimal effect provided by milk of magnesia and stool softeners. Patient denies any rectal bleeding noted. Patient states he takes aspirin 81 mg daily and no other blood thinners. He denies any known family history of liver disease or gastrointestinal disorders. This practice has been consulted to evaluate patient's abdominal distention and ascites. CT scan of abdomen and pelvis done on admission revealed the following---. Prominent portal lymphadenopathy as well as retroperitoneal and bilateral iliac lymphadenopathy. Differential diagnosis includes metastatic lymphadenopathy and lymphoma. 2.4 cm low-density lesion within the uncinate process of the pancreas which is indeterminate. Outpatient MRI of the abdomen with contrast may be helpful for further evaluation of this lesion. Large area of decreased attenuation involving the left lobe of the liver as well as enlargement of the caudate lobe. MRI of the abdomen with contrast may be helpful to rule out subtle underlying mass if clinically indicated. Enlarged, heterogeneous and nodular in contour indicating cirrhosis. Chronic calcific pancreatitis. 9 mm calcified nonobstructing right pelvic alyceal system calculus and 6 mm calcified nonobstructing right renal calculus. Extensive ascites. Bilateral inguinal hernias. Tiny 11 mm right adrenal nodule consistent with probable adrenal adenoma. Cholelithiasis. Moderate-sized left pleural effusion and tiny right pleural effusion with adjacent compressive atelectasis. Coronary artery calcifications. Degenerative changes and scoliosis of the thoracolumbar spine. WBC 11.7 hemoglobin 11.8 hematocrit 33.8 INR 1.3 total bilirubin 4.6 direct bilirubin 3.3 indirect bilirubin 1.3 AST 69 ALT 42 alk phos 312 ammonia 36 lipase 154 albumin 2.0. At this time we will follow patient and order liver workup and immunology. 04/16/18- patient laying supine in bed awaiting paracentesis this afternoon. Spouse at bedside, plan of care discussed. Large amount of ascites noted on CAT scan so patient will be going to IR for paracentesis today. Liver immunology pending. Most likely alcohol related liver disease. 04/16/2018 WBC 14.2 hemoglobin 12.2 hematocrit 36.6 platelet count 226 total bilirubin 3.0 AST 55 ALT 32 alk phos 235. Discussed concerns with patient and spouse in regards to elevated tumor markers. Plan: -Low-sodium diet -Paracentesis today -Monitor hepatic function -Lactulose -Rifaximin -Continue IV Lasix and Spironolactone -Supportive care -Further recommendations to follow based on findings This patient has been seen by myself and Dr. Joseph and this note is written on his behalf - Attending Attestation <Neha Aldana - Last Filed: 04/16/18 14:58> (1) Alcoholic hepatitis Status: Acute Code(s): K70.10 - Alcoholic hepatitis without ascites (2) Alcoholic cirrhosis Status: Acute Code(s): K70.30 - Alcoholic cirrhosis of liver without ascites - Plan Seen and examined with REGISTERED ACCOUNT ADMINISTRATOR, tumor markers elevated. Paracentesis and MRI today. Possible liver biopsy depending on above. The exam, history, and the medical decision-making described in the above note were completed with the assistance of the mid-level provider. I reviewed and agree with the findings presented. I attest that I had a [id number] encounter with the patient on the same day, and personally performed and documented my assessment and findings in the medical record. <Sabina Joseph - Last Filed: 04/16/18 17:19>
[2018-04-16] MEDS ORDERED: Albumin Human 25% Inj 150 ML IV.SIG ONE (20:00)
--- NOTE | 2018-04-16 20:14 | US ---
EXAM DATE: 04/16/2018 12:00 AM EDT AGE/SEX: 72 years / Male INDICATIONS: Ascites. CLINICAL DATA: This is the patient's initial encounter. Patient reports that signs and symptoms have been present for 2 months and indicates a pain score of 10/10. MEDICAL/SURGICAL HISTORY: Cirrhosis. Gastroesophageal reflux disease. Alcohol abuse. Atrial f ibrillation. None. COMPARISON: . FLUID: Total volume of 6,500 cc of cloudy, yellow fluid was removed. Fluid was sent to lab for ordered studi es. . . TECHNIQUE: Ultrasound guidance for abdominal paracentesis. Paracentesis. The risks, benefits, and alternatives to ultrasound guided paracentesis were explained to the patient in detail including the risk of bleeding and infection. Written and verbal informed consent was obt ained. With the patient on the ultrasound table, ultrasound imaging was used to select the most appropriate approach for paracentesis. Overlying skin was prepped and draped in the usual sterile fashion and wi th a local anesthetic, a dermatotomy was made with an 11 blade scalpel. A 6 [place] Qex-[id number]-snhykbma ca theter was introduced into the peritoneal cavity and fluid was collected. The patient tolerated the procedure well and left the ultrasound suite in stable condition. CONCLUSION: 1. Uncomplicated diagnostic and therapeutic paracentesis. Electronically signed by: Elder Dela Cruz MD 04/16/2018 8:13 PM EDT
[2018-04-16 20:50] LABS: Total Protein,Peritoneal Fluid 2.5 gm/dL
[2018-04-16 21:04] LABS: RBC,Peritoneal Fluid 202 /mm3 (0-0)
[2018-04-16 21:13] LABS: Mesothelial,Peritoneal Fluid 2 %; Neutrophils,Peritoneal Fluid 7 %
[2018-04-17] MEDS: dilTIAZem CD 240 MG Capsule PO SCH (08:02)
[2018-04-17] MEDS: Digoxin 125 MCG Tablet PO SCH (08:11)
[2018-04-17] MEDS: Nadolol 20 MG Tablet PO SCH (08:11)
[2018-04-17] MEDS: rifAXIMin 550 MG Tablet PO SCH ×2 (08:11→22:00)
[2018-04-17 08:30] LABS: Baso # (Auto) 0.1 th/mm3 (0.0-0.2); Baso % (Auto) 0.5 % (0.0-2.0); Eos % (Auto) 0.1 % (0.0-4.0); Hematocrit 37.5 % (39.0-51.0); Hemoglobin 12.4 gm/dL (13.0-17.0); Lymph % (Auto) 6.6 % (9.0-44.0); Mean Corpuscular Hemoglobin 30.1 pg (27.0-34.0); Mean Corpuscular Volume 91.2 fL (80.0-100.0); Mono % (Auto) 6.7 % (0.0-8.0); Neut # (Auto) 13.2 th/mm3 (1.8-7.7); Neut % (Auto) 86.1 % (16.0-70.0); Platelet Count 205 th/mm3 (150-450); Red Blood Count 4.12 mil/mm3 (4.50-5.90); Red Cell Distribution Width 14.8 % (11.6-17.2); White Blood Count 15.3 th/mm3 (4.0-11.0)
[2018-04-17 08:53] LABS: Alanine Aminotransferase 33 U/L (12-78); Albumin 1.8 g/dL (3.4-5.0); Alkaline Phosphatase 229 U/L (45-117); Anion Gap 12 meq/L (5-15); Aspartate Aminotransferase 64 U/L (15-37); Blood Urea Nitrogen 23 mg/dL (7-18); Calcium 7.9 mg/dL (8.5-10.1); Carbon Dioxide 19.7 meq/L (21.0-32.0); Chloride 96 meq/L (98-107); Glomerular Filtration Rate 77 mL/min (>89); Glucose,Random 112 mg/dL (74-106); Sodium 128 meq/L (136-145); Total Protein 6.2 g/dL (6.4-8.2)
--- NOTE | 2018-04-17 09:25 | P.PNIM ---
Subjective Interval history: f/u; ascites in no acute distress. abdominal pain is better with improved distention. no fever. Physical Exam Vital signs: Vital Signs 04/16/18 09:44 04/16/18 12:00 04/16/18 15:47 Temperature 97.3 F L Pulse Rate 97 H Respiratory Rate 18 18 18 Blood Pressure 113/69 Pulse Oximetry 94 L 04/16/18 16:00 04/16/18 20:00 04/17/18 00:00 Temperature 97.4 F L 97.1 F L 97.7 F Pulse Rate 68 77 53 L Respiratory Rate 18 16 17 Blood Pressure 92/50 L 90/52 L 101/54 L Pulse Oximetry 96 98 97 04/17/18 07:07 04/17/18 08:00 Temperature 98.0 F Pulse Rate 90 Respiratory Rate 18 19 Blood Pressure 91/56 L Pulse Oximetry 91 L Intake & Output 04/16/18 04/17/18 04/17/18 18:59 06:59 18:59 Intake Total 700 / 700 150 / 150 Balance 700 / 700 150 / 150 Weight 80.4 kg Intake: IV 150 / 150 Flexbumin 25% Inj 150 ML @ 60 150 / 150 mls/hr IV.SIG ONCE ONE Rx#: [id number] Oral 700 / 700 Other: # Voids 10 7 Date of Last Bowel Movement 04/12/18 04/12/18 04/12/18 - Constitutional no acute distress - Routine Respiratory Exam Present: CTA bilaterally - Routine Cardiovascular Exam Present: RRR - Routine Abdominal Exam Present: soft, distended (distention has improved.) - Routine Extremities Exam Comments: bilateral pedal edema. - Routine Neurological Exam Present: alert, oriented X3 Results - Labs CBC & Chem 7: 04/17/18 06:29 04/17/18 06:29 Laboratory Results - last 24 hr 04/16/18 04/16/18 04/17/18 18:35 18:35 06:29 WBC 15.3 H RBC 4.12 L Hgb 12.4 L Hct 37.5 L MCV 91.2 MCH 30.1 MCHC 33.0 RDW 14.8 Plt Count 205 MPV 10.0 Neut % (Auto) 86.1 H Lymph % (Auto) 6.6 L [place] % (Auto) 6.7 Eos % (Auto) 0.1 Baso % (Auto) 0.5 Neut # (Auto) 13.2 H Lymph # (Auto) 1.0 [place] # (Auto) 1.0 H Eos # (Auto) 0.0 Baso # (Auto) 0.1 WBC Differential . Differential Comment Auto diff final Sodium Potassium Chloride Carbon Dioxide Anion Gap BUN Creatinine Estimated GFR Random Glucose Calcium Total Bilirubin AST ALT Alkaline Phosphatase Total Protein Albumin Peritoneal RBC 202 H Periton Nuc Cells 138 H [place] Neutrophils 7 [place] Lymphocytes 28 Peritoneal Monocytes 19 [place] Mesothelial 2 Periton Histiocytes 44 Peritoneal Tot Protein 2.5 Peritoneal Albumin 0.9 04/17/18 06:29 WBC RBC Hgb Hct MCV MCH MCHC RDW Plt Count MPV Neut % (Auto) Lymph % (Auto) [place] % (Auto) Eos % (Auto) Baso % (Auto) Neut # (Auto) Lymph # (Auto) [place] # (Auto) Eos # (Auto) Baso # (Auto) WBC Differential Differential Comment Sodium 128 L Potassium 5.0 Chloride 96 L Carbon Dioxide 19.7 L Anion Gap 12 BUN 23 H Creatinine 0.96 Estimated GFR 77 L Random Glucose 112 H Calcium 7.9 L Total Bilirubin 2.7 H AST 64 H ALT 33 Alkaline Phosphatase 229 H Total Protein 6.2 L Albumin 1.8 L Peritoneal RBC Periton Nuc Cells Periton Neutrophils Periton Lymphocytes Peritoneal Monocytes Periton Mesothelial Periton Histiocytes Peritoneal Tot Protein Peritoneal Albumin Microbiology 04/16/18 18:35 Fluid - Peritoneal fluid Gram Stain - Final - Imaging Impressions Chest CT 04/16/18 00:00 CONCLUSION: 1. No lung masses are seen. 2. Mild left pleural effusion and minimal right pleural effusion. 3. Left-sided rib fractures and focal area of sclerosis at the right sixth rib which could be from prior fracture. Paracentesis Ultrasound 04/16/18 00:00 CONCLUSION: 1. Uncomplicated diagnostic and therapeutic paracentesis. Assessment and Plan - Plan A/P -Cirrhosis/ ascites with possible liver mass with history of alcohol abuse- patient says that he quit last month. s/p paracentesis with removal of 6500 ml of fluid- will follow the fluid culture. tumor markers elevated. continue Lasix, Aldactone, Lactulose, Rifaximin and Nadolol. GI following. - Prominent portal lymphadenopathy as well as retroperitoneal and bilateral iliac lymphadenopathy on CT-possible lymphoma. Oncology consult appreciated; CT chest with no mass- might need CT-guided biopsy. -questionable pancreatic lesion; MRI of the abdomen pending. -hyponatremia- likely due to Cirrhosis- overall stable- will continue diuretics and monitor -atrial fibrillation- continue Digoxin and Cardizem- hold aspirin for now- evaluated by cardiology last admission; not a good candidate for anticoagulation. -recent admission to this hospital after a fall with cervical fracture/ rib fracture/ wrist fracture; continue with pain control. consulted PT/OT. -DVT prophylaxis with SCD's- Discharge Planning: GI/Oncology w/u in progress. not ready for discharge.
--- NOTE | 2018-04-17 16:46 | P.PNGI ---
Subjective Interval history: Patient laying supine in bed. Spouse at bedside visiting. Patient reports increased comfort since having paracentesis yesterday. <Neha Aldana - Last Filed: 04/17/18 16:38> Physical Exam Vital signs: Vital Signs 04/16/18 20:00 04/17/18 00:00 04/17/18 07:07 Temperature 97.1 F L 97.7 F Pulse Rate 77 53 L Respiratory Rate 16 17 18 Blood Pressure 90/52 L 101/54 L Pulse Oximetry 98 97 04/17/18 08:00 04/17/18 12:00 Temperature 98.0 F 98.3 F Pulse Rate 90 99 H Respiratory Rate 19 18 Blood Pressure 91/56 L 88/50 L Pulse Oximetry 91 L 94 L Intake & Output 04/16/18 04/17/18 04/17/18 18:59 06:59 18:59 Intake Total 700 / 700 150 / 150 Balance 700 / 700 150 / 150 Weight 80.4 kg Intake: IV 150 / 150 Flexbumin 25% Inj 150 ML @ 60 150 / 150 mls/hr IV.SIG ONCE ONE Rx#: [id number] Oral 700 / 700 Other: # Voids 10 7 Date of Last Bowel Movement 04/12/18 04/12/18 04/12/18 - Constitutional no acute distress - Routine HEENT Exam Head: Present: normocephalic Eye: Present: conjunctival icterus - Routine Respiratory Exam Present: CTA bilaterally - Routine Cardiovascular Exam Present: RRR - Routine Abdominal Exam Present: soft, normoactive bowel sounds, distended. Absent: tenderness, guarding, firm - Routine Extremities Exam Present: edema Comments: Bilateral ankle edema - Routine Skin Exam Present: dry, warm, jaundice - Routine Neurological Exam Present: alert - Detailed Neurological Exam: Coma Scale Eye Opening: Spontaneous Verbal Response: Oriented (Spouse states earlier today she noted patient had some forgetfulness-confusion) Motor Response: Obey commands [place] Coma Scale Total: 15 <Neha Aldana - Last Filed: 04/17/18 16:38> Vital signs: Vital Signs 04/17/18 12:00 04/17/18 16:00 04/17/18 20:45 Temperature 98.3 F 98.3 F 97.2 F L Pulse Rate 99 H 102 H 102 H Respiratory Rate 18 18 17 Blood Pressure 88/50 L 100/65 105/56 L Pulse Oximetry 94 L 98 93 L 04/17/18 23:50 04/18/18 03:23 04/18/18 08:00 Temperature 97.3 F L 97.9 F 97.5 F L Pulse Rate 92 H 101 H 97 H Respiratory Rate 17 17 20 Blood Pressure 96/60 L 99/54 L 101/57 L Pulse Oximetry 97 96 96 Intake & Output 04/17/18 04/18/18 04/18/18 18:59 06:59 18:59 Intake Total 800 / 800 0 / 0 Balance 800 / 800 0 / 0 Weight 80.4 kg Intake: Oral 800 / 800 0 / 0 Other: # Voids 3 # Incontinent Voids 3 Date of Last Bowel Movement 04/17/18 04/17/18 # Bowel Movements 2 0 <Sabina Joseph - Last Filed: 04/18/18 11:19> Results - Labs CBC & Chem 7: 04/17/18 06:29 04/17/18 06:29 Laboratory Results - last 24 hr 04/16/18 04/16/18 04/17/18 18:35 18:35 06:29 WBC 15.3 H RBC 4.12 L Hgb 12.4 L Hct 37.5 L MCV 91.2 MCH 30.1 MCHC 33.0 RDW 14.8 Plt Count 205 MPV 10.0 Neut % (Auto) 86.1 H Lymph % (Auto) 6.6 L [place] % (Auto) 6.7 Eos % (Auto) 0.1 Baso % (Auto) 0.5 Neut # (Auto) 13.2 H Lymph # (Auto) 1.0 [place] # (Auto) 1.0 H Eos # (Auto) 0.0 Baso # (Auto) 0.1 WBC Differential . Differential Comment Auto diff final Sodium Potassium Chloride Carbon Dioxide Anion Gap BUN Creatinine Estimated GFR Random Glucose Calcium Total Bilirubin AST ALT Alkaline Phosphatase Total Protein Albumin Peritoneal RBC 202 H Periton Nuc Cells 138 H Periton Neutrophils 7 Periton Lymphocytes 28 Peritoneal Monocytes 19 Periton Mesothelial 2 Periton Histiocytes 44 Peritoneal Tot Protein 2.5 Peritoneal Albumin 0.9 04/17/18 06:29 WBC RBC Hgb Hct MCV MCH MCHC RDW Plt Count MPV Neut % (Auto) Lymph % (Auto) [place] % (Auto) Eos % (Auto) Baso % (Auto) Neut # (Auto) Lymph # (Auto) [place] # (Auto) Eos # (Auto) Baso # (Auto) WBC Differential Differential Comment Sodium 128 L Potassium 5.0 Chloride 96 L Carbon Dioxide 19.7 L Anion Gap 12 BUN 23 H Creatinine 0.96 Estimated GFR 77 L Random Glucose 112 H Calcium 7.9 L Total Bilirubin 2.7 H AST 64 H ALT 33 Alkaline Phosphatase 229 H Total Protein 6.2 L Albumin 1.8 L Peritoneal RBC Periton Nuc Cells Periton Neutrophils Periton Lymphocytes Peritoneal Monocytes Periton Mesothelial Periton Histiocytes Peritoneal Tot Protein Peritoneal Albumin Microbiology 04/16/18 18:35 Fluid - Peritoneal fluid Gram Stain - Final 04/16/18 18:35 Fluid - Peritoneal fluid Body Fluid Culture - Preliminary No growth in 24 hours - Imaging Impressions Paracentesis Ultrasound 04/16/18 00:00 CONCLUSION: 1. Uncomplicated diagnostic and therapeutic paracentesis. <Neha Aldana - Last Filed: 04/17/18 16:38> - Labs CBC & Chem 7: 04/18/18 05:25 04/18/18 05:25 Laboratory Results - last 24 hr 04/18/18 04/18/18 04/18/18 05:25 05:25 05:25 WBC 12.3 H RBC 4.25 L Hgb 13.0 Hct 38.5 L MCV 90.5 MCH 30.5 MCHC 33.7 RDW 14.8 Plt Count 194 MPV 9.9 Neut % (Auto) 83.1 H Lymph % (Auto) 8.2 L [place] % (Auto) 8.0 Eos % (Auto) 0.2 Baso % (Auto) 0.5 Neut # (Auto) 10.3 H Lymph # (Auto) 1.0 [place] # (Auto) 1.0 H Eos # (Auto) 0.0 Baso # (Auto) 0.1 WBC Differential . Differential Comment Auto diff final Sodium 130 L Potassium 4.7 Chloride 96 L Carbon Dioxide 23.2 Anion Gap 11 BUN 21 H Creatinine 0.84 Estimated GFR Greater than 89 Random Glucose 102 Calcium 7.7 L Total Bilirubin 2.6 H AST 91 H ALT 42 Alkaline Phosphatase 275 H Ammonia Less than 10 L Total Protein 6.2 L Albumin 1.7 L Microbiology 04/16/18 18:35 Fluid - Peritoneal fluid Gram Stain - Final 04/16/18 18:35 Fluid - Peritoneal fluid Body Fluid Culture - Preliminary No growth in 24 hours - Imaging Impressions Paracentesis Ultrasound 04/16/18 00:00 CONCLUSION: 1. Uncomplicated diagnostic and therapeutic paracentesis. CT Consultation 04/18/18 00:00 CONCLUSION: The [address] are not amenable to percutaneous biopsy. <JakeSabina dickerson - Last Filed: 04/18/18 11:19> Assessment and Plan (1) Alcoholic hepatitis Status: Acute Code(s): K70.10 - Alcoholic hepatitis without ascites (2) Alcoholic cirrhosis Status: Acute Code(s): K70.30 - Alcoholic cirrhosis of liver without ascites - Plan is a 72-year-old male patient who has a significant history of alcohol use and abuse, atrial flutter and recent recent hospital admission for a fall. Patient presented to the emergency room today with complaint of abdominal distention onset 2-3 months ago with swelling to both ankles and feet. Patient reports increasing abdominal distention with bloating and decreased appetite for 3 months. He denies nausea, vomiting, fever or chills. Patient states increasing abdominal girth has led to decreased appetite and shortness of breath was acute with exertion. Patient states that he has abused alcohol for an estimated 40-year period. For that time patient states he drank at least 3 shots of bourbon daily along with beer. Patient denies ever having had an EEG but reports he had a colonoscopy done 15 years ago. Patient reports abdominal bloating with no BM times 10 days states he is normally constipated and has hard stools with minimal effect provided by milk of magnesia and stool softeners. Patient denies any rectal bleeding noted. Patient states he takes aspirin 81 mg daily and no other blood thinners. He denies any known family history of liver disease or gastrointestinal disorders. This practice has been consulted to evaluate patient's abdominal distention and ascites. CT scan of abdomen and pelvis done on admission revealed the following---. Prominent portal lymphadenopathy as well as retroperitoneal and bilateral iliac lymphadenopathy. Differential diagnosis includes metastatic lymphadenopathy and lymphoma. 2.4 cm low-density lesion within the uncinate process of the pancreas which is indeterminate. Outpatient MRI of the abdomen with contrast may be helpful for further evaluation of this lesion. Large area of decreased attenuation involving the left lobe of the liver as well as enlargement of the caudate lobe. MRI of the abdomen with contrast may be helpful to rule out subtle underlying mass if clinically indicated. Enlarged, heterogeneous and nodular in contour indicating cirrhosis. Chronic calcific pancreatitis. 9 mm calcified nonobstructing right pelvic alyceal system calculus and 6 mm calcified nonobstructing right renal calculus. Extensive ascites. Bilateral inguinal hernias. Tiny 11 mm right adrenal nodule consistent with probable adrenal adenoma. Cholelithiasis. Moderate-sized left pleural effusion and tiny right pleural effusion with adjacent compressive atelectasis. Coronary artery calcifications. Degenerative changes and scoliosis of the thoracolumbar spine. WBC 11.7 hemoglobin 11.8 hematocrit 33.8 INR 1.3 total bilirubin 4.6 direct bilirubin 3.3 indirect bilirubin 1.3 AST 69 ALT 42 alk phos 312 ammonia 36 lipase 154 albumin 2.0. At this time we will follow patient and order liver workup and immunology. 04/16/18- patient laying supine in bed awaiting paracentesis this afternoon. Spouse at bedside, plan of care discussed. Large amount of ascites noted on CAT scan so patient will be going to IR for paracentesis today. Liver immunology pending. Most likely alcohol related liver disease. 04/16/2018 WBC 14.2 hemoglobin 12.2 hematocrit 36.6 platelet count 226 total bilirubin 3.0 AST 55 ALT 32 alk phos 235. Discussed concerns with patient and spouse in regards to elevated tumor markers. 04/17/2018-patient laying supine in bed. Spouse at bedside. Plan of care discussed and patient reports less feeling of distention since paracentesis yesterday. Of note 6500 mL was drained and sent for fluid studies. Plan for CT -guided lymph node biopsy tomorrow. 04/17/2018 WBC 15.3 hemoglobin 12.4 hematocrit 37.5 INR 1.3 AST 64 ALT 33 alk phos 229 immunology studies pending. Will recheck ammonia level in a.m. Plan -Continue low-sodium diet -Monitor hepatic function -Lactulose, rifaximin -Continue IV Lasix and spironolactone -CT-guided biopsy of lymph node tomorrow -Supportive care -Further recommendations to follow based on findings This patient has been seen by myself and Dr. Joseph and this note is written on his behalf <Neha Aldana - Last Filed: 04/17/18 16:38> (1) Alcoholic hepatitis Status: Acute Code(s): K70.10 - Alcoholic hepatitis without ascites (2) Alcoholic cirrhosis Status: Acute Code(s): K70.30 - Alcoholic cirrhosis of liver without ascites - Plan Seen and examined, feeling better after paracentesis. Oncology on case. Lymph node biopsy planned. <Sabina Joseph - Last Filed: 04/18/18 11:19>
[2018-04-18 06:07] LABS: Baso # (Auto) 0.1 th/mm3 (0.0-0.2); Baso % (Auto) 0.5 % (0.0-2.0); Eos % (Auto) 0.2 % (0.0-4.0); Hematocrit 38.5 % (39.0-51.0); Lymph % (Auto) 8.2 % (9.0-44.0); Mean Corpuscular HGB Conc 33.7 % (32.0-36.0); Mean Corpuscular Hemoglobin 30.5 pg (27.0-34.0); Mean Corpuscular Volume 90.5 fL (80.0-100.0); Mean Platelet Volume 9.9 fL (7.0-11.0); Neut # (Auto) 10.3 th/mm3 (1.8-7.7); Neut % (Auto) 83.1 % (16.0-70.0); Platelet Count 194 th/mm3 (150-450); Red Blood Count 4.25 mil/mm3 (4.50-5.90); Red Cell Distribution Width 14.8 % (11.6-17.2); White Blood Count 12.3 th/mm3 (4.0-11.0)
[2018-04-18 06:35] LABS: Alanine Aminotransferase 42 U/L (12-78); Albumin 1.7 g/dL (3.4-5.0); Anion Gap 11 meq/L (5-15); Aspartate Aminotransferase 91 U/L (15-37); Blood Urea Nitrogen 21 mg/dL (7-18); Calcium 7.7 mg/dL (8.5-10.1); Carbon Dioxide 23.2 meq/L (21.0-32.0); Chloride 96 meq/L (98-107); Glomerular Filtration Rate Greater Than 89 mL/min (>89); Glucose,Random 102 mg/dL (74-106); Potassium 4.7 meq/L (3.5-5.1); Sodium 130 meq/L (136-145)
[2018-04-18 06:37] LABS: Alkaline Phosphatase 275 U/L (45-117); Total Protein 6.2 g/dL (6.4-8.2)
--- NOTE | 2018-04-18 10:07 | CT ---
EXAM DATE: 04/18/2018 12:00 AM EDT AGE/SEX: 72 years / Male INDICATIONS: Lymph node biopsy COMPARISON: [facility] [place], CT ABDOMEN & PELVIS W CONTRAST, 04/15/2018. . FINDINGS: The prominent lymph nodes in the region of the yanelis hepatis with possible central necrosis are not a menable to percutaneous biopsy due to the proximity to the IVC and portal vein. The lymph node identi fied in the left iliac chain similarly is not amenable to percutaneous biopsy due to the position in the deep pelvis. No additional lymph nodes are identified. CONCLUSION: The [address] are not amenable to percutaneous biopsy. Electronically signed by: Jay Jay Hernandez MD 04/18/2018 10:05 AM EDT
[2018-04-18] MEDS: Nadolol 20 MG Tablet PO SCH (10:14)
[2018-04-18] MEDS: rifAXIMin 550 MG Tablet PO SCH ×2 (10:14→20:30)
[2018-04-18] MEDS: Digoxin 125 MCG Tablet PO SCH (10:15)
[2018-04-18] MEDS: dilTIAZem CD 240 MG Capsule PO SCH (10:17)
--- NOTE | 2018-04-18 14:37 | P.PNONC ---
Subjective Interval history: Resting comfortably in bed. at bedside. S/p paracentesis today with improvement in symptoms. Objective Vital Signs/Intake & Output: Vital Signs 04/17/18 16:00 04/17/18 20:45 04/17/18 23:50 Temperature 98.3 F 97.2 F L 97.3 F L Pulse Rate 102 H 102 H 92 H Respiratory Rate 18 17 17 Blood Pressure 100/65 105/56 L 96/60 L Pulse Oximetry 98 93 L 97 04/18/18 03:23 04/18/18 08:00 04/18/18 12:00 Temperature 97.9 F 97.5 F L 97.8 F Pulse Rate 101 H 97 H 97 H Respiratory Rate 17 20 20 Blood Pressure 99/54 L 101/57 L 96/57 L Pulse Oximetry 96 96 95 Intake & Output 04/17/18 04/18/18 04/18/18 18:59 06:59 18:59 Intake Total 800 / 800 0 / 0 Balance 800 / 800 0 / 0 Weight 80.4 kg Intake: Oral 800 / 800 0 / 0 Other: # Voids 3 # Incontinent Voids 3 Date of Last Bowel Movement 04/17/18 04/17/18 # Bowel Movements 2 0 Result Diagrams: 04/18/18 05:25 04/18/18 05:25 Laboratory Results: Laboratory Results - last 24 hr 04/18/18 04/18/18 04/18/18 05:25 05:25 05:25 WBC 12.3 H RBC 4.25 L Hgb 13.0 Hct 38.5 L MCV 90.5 MCH 30.5 MCHC 33.7 RDW 14.8 Plt Count 194 MPV 9.9 Neut % (Auto) 83.1 H Lymph % (Auto) 8.2 L [place] % (Auto) 8.0 Eos % (Auto) 0.2 Baso % (Auto) 0.5 Neut # (Auto) 10.3 H Lymph # (Auto) 1.0 [place] # (Auto) 1.0 H Eos # (Auto) 0.0 Baso # (Auto) 0.1 WBC Differential . Differential Comment Auto diff final Sodium 130 L Potassium 4.7 Chloride 96 L Carbon Dioxide 23.2 Anion Gap 11 BUN 21 H Creatinine 0.84 Estimated GFR Greater than 89 Random Glucose 102 Calcium 7.7 L Total Bilirubin 2.6 H AST 91 H ALT 42 Alkaline Phosphatase 275 H Ammonia Less than 10 L Total Protein 6.2 L Albumin 1.7 L Culture Results: Microbiology 04/16/18 18:35 Gram Stain - Final Fluid - Peritoneal fluid Body Fluid Culture - Preliminary No growth in 48 hours Imaging Studies: Impressions Paracentesis Ultrasound 04/16/18 00:00 CONCLUSION: 1. Uncomplicated diagnostic and therapeutic paracentesis. CT Consultation 04/18/18 00:00 CONCLUSION: The [address] are not amenable to percutaneous biopsy. Medications: Active Medications Generic Name Dose Route Start Last Admin Trade Name Freq PRN Reason Stop Dose Admin Digoxin 125 mcg 04/16/18 09:00 04/18/18 10:15 Lanoxin PO 125 mcg DAILY VIVIANE Administration Diltiazem HCl 240 mg 04/16/18 09:00 04/18/18 10:17 Cardizem Cd 24hr PO 240 mg DAILY VIVIANE Administration Furosemide 40 mg 04/16/18 09:00 04/18/18 10:15 Lasix Inj IV.PUSH 40 mg DAILY VIVIANE Administration Lactulose 30 ml 04/15/18 21:00 04/18/18 10:23 Lactulose Liq PO 30 ml BID VIVIANE Administration Nadolol 20 mg 04/15/18 17:00 04/18/18 10:14 Corgard PO 20 mg DAILY VIVIANE Administration Nicotine 1 patch 04/16/18 15:00 04/18/18 10:16 Habitrol 21 Mg Patch.24 Hr T-DERMAL 1 patch DAILY VIVIANE Administration Oxycodone HCl 5 mg 04/15/18 15:51 04/18/18 10:23 Roxicodone PO 5 mg Q6H PRN Administration pain 4-10 Patch Removal 1 each 04/17/18 09:00 04/18/18 10:17 Remove Old Patch T-DERMAL 1 each DAILY VIVIANE Administration Rifaximin 550 mg 04/15/18 21:00 04/18/18 10:14 Xifaxan PO 550 mg Q12HR VIVIANE Administration Sodium Chloride 2 ml 04/15/18 11:42 04/16/18 09:14 Ns Flush IV.FLUSH 2 ml PRN PRN Administration FLUSH AFTER USING IV ACCESS Spironolactone 100 mg 04/15/18 17:00 04/18/18 10:15 Aldactone PO 100 mg DAILY VIVIANE Administration Tamsulosin HCl 0.4 mg 04/16/18 09:00 04/18/18 10:15 Flomax PO 0.4 mg DAILY VIVIANE Administration Thiamine HCl 100 mg 04/16/18 09:00 04/18/18 10:14 Vitamin B1 PO 100 mg DAILY VIVIANE Administration Objective Remarks: GENERAL: chronically ill appearing man SKIN: Warm and dry, jaundiced HEAD: Normocephalic. EYES: scleral icterus CARDIOVASCULAR: Regular rate and rhythm without murmurs. RESPIRATORY: Breath sounds equal bilaterally. No accessory muscle use. GASTROINTESTINAL: distended abdomen EXTREMITIES: No cyanosis, or edema. MUSCULOSKELETAL: Adequate muscle tone. NEUROLOGICAL: No obvious focal deficit. Awake, alert, and oriented x3. PSYCHIATRIC: Appropriate mood and affect; insight and judgment normal. Assessment/Plan - Plan 72-year-old male, liver disease with history of alcohol abuse, bipolar disorder and atrial flutter admitted with abdominal distention, generalized pain and shortness of breath. He was recently in rehab after he fell falling downstairs. He has elevated AFP and CA 199 1. Findings suspicious for malignancy. Elevated AFP IR unable to perform biopsy due to location of lesion. S/p paracentesis with cytology pending. Discussion with patient and today. Patient cannot tolerate MRI. Will await results of cytology. If positive will discuss treatment options. Given poor performance status and liver cirrhosis he is a poor candidate for treatment. If negative patient may decide to pursue hospice and not pursue any further invasive procedures. 2. Cirrhosis: child vazquez score of C. GI team following.
--- NOTE | 2018-04-18 15:10 | P.PNGI ---
Subjective Interval history: Patient laying supine in bed, resting soundly with eyes closed. Spouse at bedside. Patient reports less abdominal discomfort since paracentesis. Denies any nausea or vomiting <Neha Aldana - Last Filed: 04/18/18 14:59> Physical Exam Vital signs: Vital Signs 04/17/18 16:00 04/17/18 20:45 04/17/18 23:50 Temperature 98.3 F 97.2 F L 97.3 F L Pulse Rate 102 H 102 H 92 H Respiratory Rate 18 17 17 Blood Pressure 100/65 105/56 L 96/60 L Pulse Oximetry 98 93 L 97 04/18/18 03:23 04/18/18 08:00 04/18/18 12:00 Temperature 97.9 F 97.5 F L 97.8 F Pulse Rate 101 H 97 H 97 H Respiratory Rate 17 20 20 Blood Pressure 99/54 L 101/57 L 96/57 L Pulse Oximetry 96 96 95 Intake & Output 04/17/18 04/18/18 04/18/18 18:59 06:59 18:59 Intake Total 800 / 800 0 / 0 Balance 800 / 800 0 / 0 Weight 80.4 kg Intake: Oral 800 / 800 0 / 0 Other: # Voids 3 # Incontinent Voids 3 Date of Last Bowel Movement 04/17/18 04/17/18 # Bowel Movements 2 0 - Constitutional no acute distress - Routine HEENT Exam Head: Present: normocephalic Eye: Present: conjunctival icterus - Routine Respiratory Exam Present: CTA bilaterally - Routine Cardiovascular Exam Present: RRR - Routine Abdominal Exam Present: soft, normoactive bowel sounds, distended. Absent: guarding, firm - Routine Extremities Exam Present: edema Comments: Slight bilateral ankle edema - Routine Skin Exam Present: dry, warm, jaundice - Routine Neurological Exam Present: alert, oriented X3 - Detailed Neurological Exam: Coma Scale Eye Opening: Spontaneous Verbal Response: Oriented Motor Response: Obey commands [place] Coma Scale Total: 15 - Routine Psychiatric Exam Present: normal affect, cooperative <Neha Aldana - Last Filed: 04/18/18 14:59> Vital signs: Vital Signs 04/17/18 20:45 04/17/18 23:50 04/18/18 03:23 Temperature 97.2 F L 97.3 F L 97.9 F Pulse Rate 102 H 92 H 101 H Respiratory Rate 17 17 17 Blood Pressure 105/56 L 96/60 L 99/54 L Pulse Oximetry 93 L 97 96 04/18/18 08:00 04/18/18 12:00 04/18/18 16:00 Temperature 97.5 F L 97.8 F 97.6 F Pulse Rate 97 H 97 H 53 L Respiratory Rate 20 20 20 Blood Pressure 101/57 L 96/57 L 93/53 L Pulse Oximetry 96 95 96 Intake & Output 04/17/18 04/18/18 04/18/18 18:59 06:59 18:59 Intake Total 800 / 800 0 / 0 Balance 800 / 800 0 / 0 Weight 80.4 kg Intake: Oral 800 / 800 0 / 0 Other: # Voids 3 # Incontinent Voids 3 Date of Last Bowel Movement 04/17/18 04/17/18 # Bowel Movements 2 0 <Sabina Joseph - Last Filed: 04/18/18 16:35> Results - Labs CBC & Chem 7: 04/18/18 05:25 04/18/18 05:25 Laboratory Results - last 24 hr 04/18/18 04/18/18 04/18/18 05:25 05:25 05:25 WBC 12.3 H RBC 4.25 L Hgb 13.0 Hct 38.5 L MCV 90.5 MCH 30.5 MCHC 33.7 RDW 14.8 Plt Count 194 MPV 9.9 Neut % (Auto) 83.1 H Lymph % (Auto) 8.2 L [place] % (Auto) 8.0 Eos % (Auto) 0.2 Baso % (Auto) 0.5 Neut # (Auto) 10.3 H Lymph # (Auto) 1.0 [place] # (Auto) 1.0 H Eos # (Auto) 0.0 Baso # (Auto) 0.1 WBC Differential . Differential Comment Auto diff final Sodium 130 L Potassium 4.7 Chloride 96 L Carbon Dioxide 23.2 Anion Gap 11 BUN 21 H Creatinine 0.84 Estimated GFR Greater than 89 Random Glucose 102 Calcium 7.7 L Total Bilirubin 2.6 H AST 91 H ALT 42 Alkaline Phosphatase 275 H Ammonia Less than 10 L Total Protein 6.2 L Albumin 1.7 L Microbiology 04/16/18 18:35 Fluid - Peritoneal fluid Gram Stain - Final 04/16/18 18:35 Fluid - Peritoneal fluid Body Fluid Culture - Preliminary No growth in 48 hours - Imaging Impressions Paracentesis Ultrasound 04/16/18 00:00 CONCLUSION: 1. Uncomplicated diagnostic and therapeutic paracentesis. CT Consultation 04/18/18 00:00 CONCLUSION: The [address] are not amenable to percutaneous biopsy. <Neha Aldana - Last Filed: 04/18/18 14:59> - Labs CBC & Chem 7: 04/18/18 05:25 04/18/18 05:25 Laboratory Results - last 24 hr 04/18/18 04/18/18 04/18/18 05:25 05:25 05:25 WBC 12.3 H RBC 4.25 L Hgb 13.0 Hct 38.5 L MCV 90.5 MCH 30.5 MCHC 33.7 RDW 14.8 Plt Count 194 MPV 9.9 Neut % (Auto) 83.1 H Lymph % (Auto) 8.2 L [place] % (Auto) 8.0 Eos % (Auto) 0.2 Baso % (Auto) 0.5 Neut # (Auto) 10.3 H Lymph # (Auto) 1.0 [place] # (Auto) 1.0 H Eos # (Auto) 0.0 Baso # (Auto) 0.1 WBC Differential . Differential Comment Auto diff final Sodium 130 L Potassium 4.7 Chloride 96 L Carbon Dioxide 23.2 Anion Gap 11 BUN 21 H Creatinine 0.84 Estimated GFR Greater than 89 Random Glucose 102 Calcium 7.7 L Total Bilirubin 2.6 H AST 91 H ALT 42 Alkaline Phosphatase 275 H Ammonia Less than 10 L Total Protein 6.2 L Albumin 1.7 L Microbiology 04/16/18 18:35 Fluid - Peritoneal fluid Gram Stain - Final 04/16/18 18:35 Fluid - Peritoneal fluid Body Fluid Culture - Preliminary No growth in 48 hours - Imaging Impressions Paracentesis Ultrasound 04/16/18 00:00 CONCLUSION: 1. Uncomplicated diagnostic and therapeutic paracentesis. CT Consultation 04/18/18 00:00 CONCLUSION: The [address] are not amenable to percutaneous biopsy. <Sabina Joseph - Last Filed: 04/18/18 16:35> Assessment and Plan (1) Alcoholic hepatitis Status: Acute Code(s): K70.10 - Alcoholic hepatitis without ascites (2) Alcoholic cirrhosis Status: Acute Code(s): K70.30 - Alcoholic cirrhosis of liver without ascites - Plan 04/16/18- patient laying supine in bed awaiting paracentesis this afternoon. Spouse at bedside, plan of care discussed. Large amount of ascites noted on CAT scan so patient will be going to IR for paracentesis today. Liver immunology pending. Most likely alcohol related liver disease. 04/16/2018 WBC 14.2 hemoglobin 12.2 hematocrit 36.6 platelet count 226 total bilirubin 3.0 AST 55 ALT 32 alk phos 235. Discussed concerns with patient and spouse in regards to elevated tumor markers. 04/17/2018-patient laying supine in bed. Spouse at bedside. Plan of care discussed and patient reports less feeling of distention since paracentesis yesterday. Of note 6500 mL was drained and sent for fluid studies. Plan for CT -guided lymph node biopsy tomorrow. 04/17/2018 WBC 15.3 hemoglobin 12.4 hematocrit 37.5 INR 1.3 AST 64 ALT 33 alk phos 229 immunology studies pending. Will recheck ammonia level in a.m. 04/17/2018-patient laying supine in bed. Spouse at bedside, patient reporting less abdominal discomfort and distention since paracentesis. Hemoglobin 13.0 hematocrit 38.5 platelet count 194. Total bilirubin 2.6 AST 91 ALT 42 alk phos 275 ammonia level less than 10. CT consult noted--> The prominent lymph nodes in the region of the yanelis hepatis with possible central necrosis are not amenable to percutaneous biopsy due to the proximity to the IVC and portal vein. The lymph node identified in the left iliac chain similarly is not amenable to percutaneous biopsy due to the position in the deep pelvis. No additional lymph nodes are identified. The [address] are not amenable to percutaneous biopsy. Plan of care includes possible liver biopsy. Oncology following patient. Plan -Continue low-sodium diet -Lactulose, rifaximin, Lasix, spironolactone -Continue to monitor hepatic function -Avoid hepatotoxins -Supportive care GI will sign off at this time. Please reconsult if further need arises - Attending Attestation Dr. Joseph <Neha Aldana - Last Filed: 04/18/18 14:59> (1) Alcoholic hepatitis Status: Acute Code(s): K70.10 - Alcoholic hepatitis without ascites (2) Alcoholic cirrhosis Status: Acute Code(s): K70.30 - Alcoholic cirrhosis of liver without ascites - Plan Seen and examined with [employer]IL[employer] PROFESSIONAL, sleeping comfortably. LN biopsy not possible. Suspect malignancy. The exam, history, and the medical decision-making described in the above note were completed with the assistance of the mid-level provider. I reviewed and agree with the findings presented. I attest that I had a [id number] encounter with the patient on the same day, and personally performed and documented my assessment and findings in the medical record.Would recommend liver biopsy. Oncology on case, gi will sign off. Reconsult as needed. <Sabina Joseph - Last Filed: 04/18/18 16:35>
--- NOTE | 2018-04-18 15:24 | P.PNIM ---
Subjective Interval history: Reports abdominal pain better. Is refusing to complete the MRI of the abdomen despite counseling of the need for test and able to give sedation. Physical Exam Vital signs: Vital Signs 04/17/18 16:00 04/17/18 20:45 04/17/18 23:50 Temperature 98.3 F 97.2 F L 97.3 F L Pulse Rate 102 H 102 H 92 H Respiratory Rate 18 17 17 Blood Pressure 100/65 105/56 L 96/60 L Pulse Oximetry 98 93 L 97 04/18/18 03:23 04/18/18 08:00 04/18/18 12:00 Temperature 97.9 F 97.5 F L 97.8 F Pulse Rate 101 H 97 H 97 H Respiratory Rate 17 20 20 Blood Pressure 99/54 L 101/57 L 96/57 L Pulse Oximetry 96 96 95 Intake & Output 04/17/18 04/18/18 04/18/18 18:59 06:59 18:59 Intake Total 800 / 800 0 / 0 Balance 800 / 800 0 / 0 Weight 80.4 kg Intake: Oral 800 / 800 0 / 0 Other: # Voids 3 # Incontinent Voids 3 Date of Last Bowel Movement 04/17/18 04/17/18 # Bowel Movements 2 0 Narrative: GENERAL: This is a well-nourished, well-developed patient, in no apparent distress. NECK: C-collar in place CARDIOVASCULAR: Regular rate and rhythm RESPIRATORY: Clear to auscultation. Breath sounds equal bilaterally. No wheezes , rales, or rhonchi. GASTROINTESTINAL: Abdomen soft, non-tender, mild distended. Normal active bowel sounds MUSCULOSKELETAL: Extremities without clubbing, cyanosis, trace edema NEURO: Alert & Oriented x4 to person, place, time, situation. Moves all ext x4 Results - Labs CBC & Chem 7: 04/18/18 05:25 04/18/18 05:25 Laboratory Results - last 24 hr 04/18/18 04/18/18 04/18/18 05:25 05:25 05:25 WBC 12.3 H RBC 4.25 L Hgb 13.0 Hct 38.5 L MCV 90.5 MCH 30.5 MCHC 33.7 RDW 14.8 Plt Count 194 MPV 9.9 Neut % (Auto) 83.1 H Lymph % (Auto) 8.2 L [place] % (Auto) 8.0 Eos % (Auto) 0.2 Baso % (Auto) 0.5 Neut # (Auto) 10.3 H Lymph # (Auto) 1.0 [place] # (Auto) 1.0 H Eos # (Auto) 0.0 Baso # (Auto) 0.1 WBC Differential . Differential Comment Auto diff final Sodium 130 L Potassium 4.7 Chloride 96 L Carbon Dioxide 23.2 Anion Gap 11 BUN 21 H Creatinine 0.84 Estimated GFR Greater than 89 Random Glucose 102 Calcium 7.7 L Total Bilirubin 2.6 H AST 91 H ALT 42 Alkaline Phosphatase 275 H Ammonia Less than 10 L Total Protein 6.2 L Albumin 1.7 L Microbiology 04/16/18 18:35 Fluid - Peritoneal fluid Gram Stain - Final 04/16/18 18:35 Fluid - Peritoneal fluid Body Fluid Culture - Preliminary No growth in 48 hours - Imaging Impressions Paracentesis Ultrasound 04/16/18 00:00 CONCLUSION: 1. Uncomplicated diagnostic and therapeutic paracentesis. CT Consultation 04/18/18 00:00 CONCLUSION: The [address] are not amenable to percutaneous biopsy. - Procedures 04/16 paracentesis Assessment and Plan - Plan 72 year old white male with hx of liver cirrhosis admitted with abdominal pain and distention 1. Cirrhosis/ ascites with possible liver mass with history of alcohol abuse- patient says that he quit alcohol last month. s/p paracentesis with removal of 6500 ml of fluid- will follow the fluid culture. tumor markers alpha-fetoprotein and CA-19-9 elevated. continue Lasix, Aldactone, Lactulose, Rifaximin and Nadolol. GI following. Patient is declining MRI of the abdomen for further evaluation of this mass 2. Prominent portal lymphadenopathy as well as retroperitoneal and bilateral iliac lymphadenopathy on CT-possible lymphoma. Oncology consult appreciated; radiology consultation revealed that CT-guided biopsy is unable to be performed due to location. He is also declining a surgical excision. He is considering hospice should cytology results come back negative as he does not want to pursue further workup. Per oncologist, patient may not be a high performing candidate for treatment. 3. hyponatremia- likely due to Cirrhosis- overall stable- will continue diuretics and monitor 4. Atrial fibrillation- continue Digoxin and Cardizem- hold aspirin for now- evaluated by cardiology last admission; not a good candidate for anticoagulation. 5. Recent admission to this hospital after a fall with cervical fracture/ rib fracture/ wrist fracture; continue with pain control. consulted PT/OT. Per patient his would like Dr. Laird, neurosurgery consulted to evaluate if he would need to continue with his c-collar. He originally had an office appointment today. 6. DVT prophylaxis with SCD's- Discussed with his at bedside. Discharge Planning: Pending hospital course, patient in consideration for hospice at this time should he continue to decline workup.
[2018-04-18] MEDS: ALPRAZolam 0.25 MG Tablet PO PRN (17:02)
[2018-04-19] MEDS: ALPRAZolam 0.25 MG Tablet PO PRN (06:09)
[2018-04-19] MEDS: Digoxin 125 MCG Tablet PO SCH (10:00)
[2018-04-19] MEDS: rifAXIMin 550 MG Tablet PO SCH ×2 (10:01→21:39)
[2018-04-19] MEDS: Nadolol 20 MG Tablet PO SCH (10:01)
[2018-04-19] MEDS: dilTIAZem CD 240 MG Capsule PO SCH (10:01)
--- NOTE | 2018-04-19 13:07 | P.PNIM ---
Subjective Interval history: Reports some mild abdominal discomfort and pain. No neck pain. Has decided to at least pursue surgical biopsy. Physical Exam Vital signs: Vital Signs 04/18/18 16:00 04/18/18 20:00 04/19/18 00:00 Temperature 97.6 F 97.9 F 98.3 F Pulse Rate 53 L 54 L 50 L Respiratory Rate 20 16 16 Blood Pressure 93/53 L 93/52 L 91/57 L Pulse Oximetry 96 95 96 04/19/18 04:00 04/19/18 08:00 Temperature 98.2 F 97.5 F L Pulse Rate 100 H 94 H Respiratory Rate 16 18 Blood Pressure 95/61 L 95/57 L Pulse Oximetry 95 95 Intake & Output 04/18/18 04/19/18 04/19/18 18:59 06:59 18:59 Intake Total 840 / 840 240 / 240 Balance 840 / 840 240 / 240 Weight 81 kg Intake: Oral 840 / 840 240 / 240 Other: # Voids 4 4 # Incontinent Voids 2 # Urine Diapers 2 Date of Last Bowel Movement 04/17/18 # Bowel Movements 0 Narrative: GENERAL: This is a well-nourished, well-developed patient, in no apparent distress. NECK: C-collar in place CARDIOVASCULAR: Regular rate and rhythm RESPIRATORY: Clear to auscultation. Breath sounds equal bilaterally. No wheezes , rales, or rhonchi. GASTROINTESTINAL: Abdomen soft, non-tender, mild disten 10. Normal active bowel sounds MUSCULOSKELETAL: Extremities without clubbing, cyanosis, trace edema NEURO: Alert & Oriented x2 to person, place, time. Moves all ext x4 Results - Labs CBC & Chem 7: 04/18/18 05:25 04/18/18 05:25 Microbiology 04/16/18 18:35 Fluid - Peritoneal fluid Gram Stain - Final 04/16/18 18:35 Fluid - Peritoneal fluid Body Fluid Culture - Final No growth in 72 hours (aerobically and anaerobically ) - Procedures 04/16 paracentesis Assessment and Plan - Plan 72 year old white male with hx of liver cirrhosis admitted with abdominal pain and distention 1. Cirrhosis/ ascites with possible liver mass with history of alcohol abuse- patient says that he quit alcohol last month. s/p paracentesis with removal of 6500 ml of fluid- will follow the fluid culture. tumor markers alpha-fetoprotein and CA-19-9 elevated. continue Lasix, Aldactone, Lactulose, Rifaximin and Nadolol. GI has signed off Patient is declining MRI of the abdomen for further evaluation of this mass 2. Prominent portal lymphadenopathy as well as retroperitoneal and bilateral iliac lymphadenopathy on CT-possible lymphoma. Oncology consult appreciated; radiology consultation revealed that CT-guided biopsy is unable to be performed due to location. Patient now is open to evaluation with general surgery for surgical excision biopsy He his would like some definitive diagnosis of possible for discussion on prognosis and treatment options if available is a candidate 3. hyponatremia- likely due to Cirrhosis- overall stable- will continue diuretics and monitor 4. Atrial fibrillation- continue Digoxin and Cardizem- hold aspirin for now- evaluated by cardiology last admission; not a good candidate for anticoagulation. 5. Recent admission to this hospital after a fall with cervical fracture/ rib fracture/ wrist fracture; continue with pain control. consulted PT/OT. Per patient his would like Dr. Laird, neurosurgery consulted to evaluate if he would need to continue with his c-collar. He originally had an office appointment yesterday await further recommendations. 6. DVT prophylaxis with SCD's- Discussed with his at bedside. Discharge Planning: Pending hospital course, patient in consideration for hospice at this time should he continue to decline workup.
--- NOTE | 2018-04-19 13:14 | P.PNNS ---
Subjective Interval history: Pt is a 73 y/o M who had a follow up appt scheduled with us in the office today and is here in the hospital for abdominal pain and distention. He is now 6 weeks s/p C5, C6, and C7 vertebral body fractures with C7 wedge deformity. He has a kyphotic spine. He was placed in a [facility] cervical collar 6 weeks ago. He had follow up x-rays at [facility] which were reviewed with Dr. Laird today. He was scheduled to follow up with us outpatient but was readmitted. He denies neck pain. No radiculopathy in UEs. No paresthesias in UEs. He ambulates short distances with standby assistance. Physical Exam Vital signs: Vital Signs 04/18/18 16:00 04/18/18 20:00 04/19/18 00:00 Temperature 97.6 F 97.9 F 98.3 F Pulse Rate 53 L 54 L 50 L Respiratory Rate 20 16 16 Blood Pressure 93/53 L 93/52 L 91/57 L Pulse Oximetry 96 95 96 04/19/18 04:00 04/19/18 08:00 Temperature 98.2 F 97.5 F L Pulse Rate 100 H 94 H Respiratory Rate 16 18 Blood Pressure 95/61 L 95/57 L Pulse Oximetry 95 95 Intake & Output 04/18/18 04/19/18 04/19/18 18:59 06:59 18:59 Intake Total 840 / 840 240 / 240 Balance 840 / 840 240 / 240 Weight 81 kg Intake: Oral 840 / 840 240 / 240 Other: # Voids 4 4 # Incontinent Voids 2 # Urine Diapers 2 Date of Last Bowel Movement 04/17/18 # Bowel Movements 0 - Constitutional no acute distress, cooperative - Routine HEENT Exam Head: Present: normocephalic, atraumatic Eye: Present: PERRL (Pupils 3mm bilaterally reactive bilaterally.) ENT: Present: oropharynx clear - Routine Neck Exam Absent: full ROM ([facility] cervical collar intact.) - Routine Respiratory Exam Present: CTA bilaterally. Absent: respiratory distress, rhonchi, wheezes - Routine Cardiovascular Exam Present: RRR, S1, S2. Absent: murmur - Routine Abdominal Exam Present: soft, normoactive bowel sounds. Absent: firm - Routine Skin Exam Absent: cyanosis, erythema - Routine Neurological Exam Present: alert, oriented X3, moving all extremities (Symmetric strength. He gets up and ambualtes to the bathroom.), normal speech - Routine Psychiatric Exam Present: normal affect. Absent: anxious, agitated Assessment and Plan - Assessment (1) Fracture of wrist Code(s): S62.109A - Fracture of unspecified carpal bone, unspecified wrist, initial encounter for closed fracture Status: Acute Qualifiers: Encounter type: initial encounter Fracture type: closed Laterality: left Qualified Code(s): S62.102A - Fracture of unspecified carpal bone, left wrist , initial encounter for closed fracture (2) Fracture, ribs Code(s): S22.39XA - Fracture of one rib, unspecified side, initial encounter for closed fracture Status: Acute Qualifiers: Encounter type: initial encounter Rib fracture type: multiple ribs Fracture type: closed Laterality: left Qualified Code(s): S22.42XA - Multiple fractures of ribs, left side, initial encounter for closed fracture (3) Fracture multiple cervical vertebra-closed Code(s): S12.9XXA - Fracture of neck, unspecified, initial encounter Status: Acute Qualifiers: Encounter type: initial encounter Qualified Code(s): S12.9XXA - Fracture of neck, unspecified, initial encounter (4) Afib Code(s): I48.91 - Unspecified atrial fibrillation Status: Acute Qualifiers: Atrial fibrillation type: unspecified Qualified Code(s): I48.91 - Unspecified atrial fibrillation (5) Impaired mobility and activities of daily living Code(s): Z74.09 - Other reduced mobility Status: Acute (6) Bipolar disorder Code(s): F31.9 - Bipolar disorder, unspecified Status: Acute Qualifiers: Active/Remission status: remission status unspecified Qualified Code(s): F31.9 - Bipolar disorder, unspecified (7) Alcohol abuse Code(s): F10.10 - Alcohol abuse, uncomplicated Status: Chronic (8) Tobacco abuse Code(s): Z72.0 - Tobacco use Status: Chronic - Plan A: 73 y/o M 6 weeks s/p C5, C6, and C7 vertebral body fractures with C7 wedge deformity. He has a kyphotic spine. He has been in a [facility] cervical collar for his fractures. P: Dr. Laird and I have reviewed his 6 week follow up x-rays from [facility]. Although he appears stable and routine healing he has not completely healed from his fractures. He will need to continue with the cervical collar for at least another 6 weeks with follow up x-rays to reassess his fracture healing. He will continue with the cervical collar and restrictions. Discussed with pt and his at bedside. We will ask [employer] to reassess collar size.
[2018-04-19] MEDS ORDERED: Sodium Chlor 0.9% Inj 500 ML IV.SIG ONE (16:42)
[2018-04-19] MEDS ORDERED: Albumin Human 25% Inj 100 ML IV.SIG ONE (22:00)
--- NOTE | 2018-04-20 01:07 | MB ---
cc: Macario Mackenzie MD DATE: 04/19/2018 PHYSICIAN REQUESTING CONSULTATION: Ana Tobias MD. REASON FOR CONSULTATION: Surgical biopsy of intraabdominal mass. HISTORY OF PRESENT ILLNESS: The patient is a 73-year-old male who was admitted to [facility] for management of cirrhosis. The patient recently had a fall and underwent treatment of neck fractures by neurosurgery with a cervical collar. The patient has been found to have a Child class C cirrhosis actively managed by gastroenterology. The patient also was found to have an intraabdominal mass and prominent portal lymphadenopathy concerning for metastatic lymphadenopathy versus lymphoma. There is also a 2.4 cm low density lesion in the uncinate process of the pancreas. The patient was recommended to undergo biopsy by hematology and a CT-guided biopsy was unable to be performed due to anatomy. General surgery was consulted for evaluation and possible biopsy. The patient's most recent liver function tests do reveal a bilirubin of 2.6, albumin of 1.7 and PT of 13.6. Also, the patient has ascites requiring drainage. Also, possible encephalopathy . REVIEW OF SYSTEMS: The review of systems was conducted with the patient, as well as reviewed as documented in the chart as well as above in the history of present illness. PAST MEDICAL HISTORY: Atrial fibrillation, history of alcohol abuse, cirrhosis as above, history of rib fractures and neck fractures approximately 3 months ago, bipolar disorder, gastroesophageal reflux disease, history of gallstones. PAST SURGICAL HISTORY: No previous abdominal operations. ALLERGIES: Fire ants. MEDICATIONS: 1. Xanax. 2. Digoxin. 3. Diltiazem. 4. Lasix. 5. Lactulose. 6. Corgard. 7. Habitrol. 8. Zofran. 9. Roxicodone. 10. Xifaxan. 11. Aldactone. 12. Flomax. 13. Vitamin B1. SOCIAL HISTORY: The patient has a history of alcohol abuse, said he quit 3 months ago. FAMILY HISTORY: Reviewed and noncontributory. IMAGING: CT scan on 04/15/2018 does reveal lymphadenopathy as detailed above in history of present illness, as well as multiple other findings including ascites and cirrhosis. LABORATORY VALUES: As detailed above in HPI. ASSESSMENT AND PLAN: The patient is a 73-year-old male with advanced cirrhosis and exceptionally poor performance status currently with uncinate process mass as well as lymphadenopathy, periportal and iliac. The patient is unable to undergo a minimally invasive biopsy per CT guidance per interventional radiology note. The patient is contraindicated to undergo surgical biopsy as his cirrhosis is significantly advanced and decompensated and at a Child C range, which would make surgery exceptionally high risk for this patient. I would not recommend any surgical biopsy, particularly in the setting of a patient with poor performance status who would not tolerate any intervention on a potential diagnosis at this time. If the patient has significant improvement in his cirrhosis to a stable Child A cirrhosis and could potentially tolerate treatment, reconsidering an invasive biopsy would be in order; however, this will be inappropriate at this time. Other option for biopsy that would be less invasive and likely more tolerated by the patient would be endoscopic ultrasound, but will defer to gastroenterology's opinion about the feasibility and safety of the procedure in this patient. Otherwise, I agree with current management and do feel that due to the patient's decompensated cirrhosis, palliative care would be appropriate if the patient and family wished to pursue this form of care. Thank you very much for this consultation. We will sign off. Please call if we can be of any assistance. I did provide my contact information to the patient and offered him follow up if that is needed. MD CIRA Guajardo/shirley , 12:00 AM , 12:12 AM
[2018-04-20] MEDS: Furosemide 40 MG Tablet PO SCH (10:24)
[2018-04-20] MEDS: rifAXIMin 550 MG Tablet PO SCH ×2 (10:24→20:22)
[2018-04-20] MEDS: Digoxin 125 MCG Tablet PO SCH (10:25)
--- NOTE | 2018-04-20 11:36 | P.PNIM ---
Subjective Interval history: Patient feeling weak. Not talkative. He is in agreement with his about transitioning to hospice. He reports abdominal discomfort. Physical Exam Vital signs: Vital Signs 04/19/18 12:00 04/19/18 18:41 04/19/18 20:00 Temperature 94.3 F L 98.1 F 97.9 F Pulse Rate 105 H 51 L 50 L Respiratory Rate 18 23 16 Blood Pressure 109/64 78/50 L 79/47 L Pulse Oximetry 97 95 95 04/20/18 00:00 04/20/18 03:13 04/20/18 04:00 Temperature 99 F 97.8 F Pulse Rate 68 71 Respiratory Rate 18 18 16 Blood Pressure 96/57 L 97/54 L Pulse Oximetry 95 95 04/20/18 08:00 Temperature 97.5 F L Pulse Rate 98 H Respiratory Rate 18 Blood Pressure 91/51 L Pulse Oximetry 92 L Intake & Output 04/19/18 04/20/18 04/20/18 18:59 06:59 18:59 Intake Total 1220 / 1220 Balance 1220 / 1220 Weight 81.1 kg Intake: IV 500 / 500 NS Inj 500 ML @ Wide Open IV. 500 / 500 SIG BOLUS ONE Rx#:[id number] Oral 720 / 720 Other: # Voids 2 1 Date of Last Bowel Movement 04/17/18 Narrative: GENERAL: This is a well-nourished, well-developed patient, in no apparent distress. NECK: C-collar in place CARDIOVASCULAR: Regular rate and rhythm RESPIRATORY: Clear to auscultation. Breath sounds equal bilaterally. No wheezes , rales, or rhonchi. GASTROINTESTINAL: Abdomen soft, non-tender, distended, normal active bowel sounds MUSCULOSKELETAL: Extremities without clubbing, cyanosis, trace edema NEURO: Alert & Oriented x2 to person, place, time. Moves all ext x4 but with generalized weakness Results - Labs CBC & Chem 7: 04/18/18 05:25 04/18/18 05:25 Microbiology 04/16/18 18:35 Fluid - Peritoneal fluid Gram Stain - Final 04/16/18 18:35 Fluid - Peritoneal fluid Body Fluid Culture - Final No growth in 72 hours (aerobically and anaerobically ) - Procedures 04/16 paracentesis Assessment and Plan - Assessment (1) Alcoholic cirrhosis Code(s): K70.30 - Alcoholic cirrhosis of liver without ascites Status: Chronic (2) Afib Code(s): I48.91 - Unspecified atrial fibrillation Status: Chronic (3) Liver mass Code(s): R16.0 - Hepatomegaly, not elsewhere classified Status: Chronic (4) Lymphadenopathy, abdominal Code(s): R59.0 - Localized enlarged lymph nodes Status: Acute - Plan 72 year old white male with hx of liver cirrhosis admitted with abdominal pain and distention 1. Cirrhosis/ ascites with possible liver mass with history of alcohol abuse- patient says that he quit alcohol last month. s/p paracentesis with removal of 6500 ml of fluid- will follow the fluid culture. tumor markers alpha-fetoprotein and CA-19-9 elevated. continue Lasix, Aldactone, Lactulose, Rifaximin and Nadolol. GI has signed off Patient is declining MRI of the abdomen for further evaluation of this mass 2. Prominent portal lymphadenopathy as well as retroperitoneal and bilateral iliac lymphadenopathy on CT-possible lymphoma. Oncology consult appreciated; radiology consultation revealed that CT-guided biopsy is unable to be performed due to location. He has not a surgical candidate per general surgery evaluation for surgical excision of the biopsy. At this time, options were discussed thoroughly with patient and and transition to hospice will be done. CODE STATUS and advanced care planning was also performed Status will be changed to DNR per patient and 's wishes. would prefer hospice with a inpatient care center and consult to hospice will be done today. 3. hyponatremia- likely due to Cirrhosis- overall stable- will continue diuretics and monitor 4. Atrial fibrillation- continue Digoxin and hold Cardizem- hold aspirin for now- evaluated by cardiology last admission; not a good candidate for anticoagulation. Due to patient's hypotension Cardizem was on hold. 5. Recent admission to this hospital after a fall with cervical fracture/ rib fracture/ wrist fracture; continue with pain control. consulted PT/OT. Per Dr. Laird patient will still need his c-collar for the next 6 weeks. 6. DVT prophylaxis with SCD's- 7. HypertensionCardizem and nadolol is currently on hold due to his hypotension. Discussed with his at bedside. Code Status: DNR Discussed Condition With: Discharge Planning: Discharge home with hospice pending evaluation today. (1) Alcoholic cirrhosis Qualifiers: Ascites presence: with ascites Qualified Code(s): K70.31 - Alcoholic cirrhosis of liver with ascites (2) Afib Qualifiers: Atrial fibrillation type: unspecified Qualified Code(s): I48.91 - Unspecified atrial fibrillation
--- NOTE | 2018-04-20 11:40 | P.DS ---
Date of admission: 04/15/18 15:10 Primary care physician: PROVIDER NON STAFF Anticipated date of discharge: 04/20/18 Brief History from admission: patient is a 72 y/o male with history of alcohol abuse,atrial flutter and recent admission to this hospital after a fall who presented to ER with abdominal distention. he says that it's been going on for about ten weeks. he has some generalized abdominal pain with no nausea, vomiting, fever or chills. he has some sob which he relates to his abdominal distention. he says that he's had some constipation for the past few days. Patient update on day of discharge: Patient continues to feel weak. Abdominal swelling. DS: Diagnosis - Discharge Diagnosis (1) Alcoholic cirrhosis Status: Chronic (2) Afib Status: Chronic (3) Liver mass Status: Chronic (4) Lymphadenopathy, abdominal Status: Acute DS: Summary Hospital Course: These are the medical issues addressed during this hospitalization: 72 year old white male with hx of liver cirrhosis admitted with abdominal pain and distention 1. Cirrhosis/ ascites with possible liver mass with history of alcohol abuse- patient says that he quit alcohol last month. s/p paracentesis with removal of 6500 ml of fluid- will follow the fluid culture. tumor markers alpha-fetoprotein and CA-19-9 elevated. continue Lasix, Aldactone, Lactulose, Rifaximin and Nadolol. GI service was consulted during this hospitalization assisted with management. Patient is declining MRI of the abdomen for further evaluation of this mass 2. Prominent portal lymphadenopathy as well as retroperitoneal and bilateral iliac lymphadenopathy on CT-possible lymphoma. Oncology consult appreciated; radiology consultation revealed that CT-guided biopsy is unable to be performed due to location. General surgery evaluated CT and felt that he is not a surgical candidate due to his liver cirrhosis for open excisional biopsy. Due to patient's liver cirrhosis with mass in prominent portal lymphadenopathy with possible persistent lymphoma and decline, patient and at this time has decided transition to hospice and comfort measures. Advance care planning performed and CODE STATUS was discussed. Patient transition to DO NOT RESUSCITATE status. 3. hyponatremia- likely due to Cirrhosis- overall stable- will continue diuretics and monitor 4. Atrial fibrillation- continue Digoxin and did not tolerate Cardizem and nadolol due to hypotension- hold aspirin for now- evaluated by cardiology last admission; not a good candidate for anticoagulation. 5. Recent admission to this hospital after a fall with cervical fracture/ rib fracture/ wrist fracture; continue with pain control. consulted PT/OT. Dr. Laird, neurosurgery evaluated patient and felt he was not a surgical candidate. 6. DVT prophylaxis with SCD's- Will transition patient to hospice - Time Spent with Patient Total time spent providing and/or coordinating discharge services: Less than 30 minutes - Quality: VTE Deep Vein Thrombosis/Pulmonary Embolism Present on Admission: No Exam Vital signs: Vital Signs 04/19/18 12:00 04/19/18 18:41 04/19/18 20:00 Temperature 94.3 F L 98.1 F 97.9 F Pulse Rate 105 H 51 L 50 L Respiratory Rate 18 23 16 Blood Pressure 109/64 78/50 L 79/47 L Pulse Oximetry 97 95 95 04/20/18 00:00 04/20/18 03:13 04/20/18 04:00 Temperature 99 F 97.8 F Pulse Rate 68 71 Respiratory Rate 18 18 16 Blood Pressure 96/57 L 97/54 L Pulse Oximetry 95 95 04/20/18 08:00 Temperature 97.5 F L Pulse Rate 98 H Respiratory Rate 18 Blood Pressure 91/51 L Pulse Oximetry 92 L Intake & Output 04/19/18 04/20/18 04/20/18 18:59 06:59 18:59 Intake Total 1220 / 1220 Balance 1220 / 1220 Weight 81.1 kg Intake: IV 500 / 500 NS Inj 500 ML @ Wide Open IV. 500 / 500 SIG BOLUS ONE Rx#:[id number] Oral 720 / 720 Other: # Voids 2 1 Date of Last Bowel Movement 04/17/18 Narrative: GENERAL: This is a well-nourished, well-developed patient, in no apparent distress. NECK: C-collar in place CARDIOVASCULAR: Regular rate and rhythm RESPIRATORY: Clear to auscultation. Breath sounds equal bilaterally. No wheezes , rales, or rhonchi. GASTROINTESTINAL: Abdomen soft, non-tender, distended, normal active bowel sounds MUSCULOSKELETAL: Extremities without clubbing, cyanosis, trace edema NEURO: Alert & Oriented x2 to person, place, time. Moves all ext x4 but with generalized weakness Results Procedures completed during hospitalization: 04/16 paracentesis - Impressions ITS Impressions Abdomen/Pelvis CT 04/15/18 11:42 CONCLUSION: 1. Prominent portal lymphadenopathy as well as retroperitoneal and bilateral iliac lymphadenopathy. Differential diagnosis includes metastatic lymphadenopathy and lymphoma. 2. 2.4 cm low-density lesion within the uncinate process of the pancreas which is indeterminate. Outpatient MRI of the abdomen with contrast may be helpful for further evaluation of this lesion. 3. Large area of decreased attenuation involving the left lobe of the liver as well as enlargement of the caudate lobe. MRI of the abdomen with contrast may be helpful to rule out subtle underlying mass if clinically indicated. 4. Enlarged, heterogeneous and nodular in contour indicating cirrhosis. 5. Chronic calcific pancreatitis. 6. 9 mm calcified nonobstructing right pelvicalyceal system calculus and 6 mm calcified nonobstructing right renal calculus. 7. Extensive ascites. 8. Bilateral inguinal hernias. 9. Tiny 11 mm right adrenal nodule consistent with probable adrenal adenoma. 10. Cholelithiasis. 11. Moderate-sized left pleural effusion and tiny right pleural effusion with adjacent compressive atelectasis. 12. Coronary artery calcifications. 13. Degenerative changes and scoliosis of the thoracolumbar spine. Chest CT 04/16/18 00:00 CONCLUSION: 1. No lung masses are seen. 2. Mild left pleural effusion and minimal right pleural effusion. 3. Left-sided rib fractures and focal area of sclerosis at the right sixth rib which could be from prior fracture. Paracentesis Ultrasound 04/16/18 00:00 CONCLUSION: 1. Uncomplicated diagnostic and therapeutic paracentesis. CT Consultation 04/18/18 00:00 CONCLUSION: The [address] are not amenable to percutaneous biopsy. Discharge Plan - Discharge Disposition Patient Disposition: 50 Hospice/Home - Discharge Condition Condition: Stable - Discharge Order Discharge Orders: Discharge Order (Routine); Ordered 04/20/18 Ordered By: Ana Tobias - Physicians Team Primary Care Provider: NON STAFF,PROVIDER Attending Provider: Ana Tobias Other Providers: Freddie Brown MD ; Cheyanne Ly ; Robbie Laird MD ; Macario Mackenzie MD
[2018-04-20 12:52] LABS: Smooth Muscle Total Auto Abs Positive 1:40 (Negative)
[2018-04-20] MEDS: ALPRAZolam 0.25 MG Tablet PO PRN ×2 (13:04→20:23)
[2018-04-20 17:52] LABS: Ceruloplasmin 36 mg/dL (18-36)
[2018-04-21 03:50] LABS: DS DNA Ab (Crithidia) NEGATIVE (NEGATIVE)
[2018-04-21] MEDS: Digoxin 125 MCG Tablet PO SCH (08:50)
[2018-04-21] MEDS: rifAXIMin 550 MG Tablet PO SCH (08:50)
--- NOTE | 2018-04-21 09:24 | P.PN ---
Subjective Interval history: Patient doing well with no concerns. Reports that he is tolerating p.o., voiding/stooling well. No events per nursing. Physical Exam Vital signs: Vital Signs 04/20/18 12:00 04/20/18 16:00 04/20/18 18:58 Temperature 98.1 F 97.9 F 97.4 F L Pulse Rate 100 H 99 H 99 H Respiratory Rate 18 18 17 Blood Pressure 98/60 L 101/60 90/54 L Pulse Oximetry 91 L 96 96 04/21/18 00:00 04/21/18 03:38 Temperature 97.3 F L 98 F Pulse Rate 89 89 Respiratory Rate 18 15 Blood Pressure 104/61 94/60 L Pulse Oximetry 98 99 Intake & Output 04/20/18 04/21/18 04/21/18 18:59 06:59 18:59 Intake Total 240 / 240 Balance 240 / 240 Intake: Oral 240 / 240 Other: # Voids 3 # Incontinent Voids 6 Date of Last Bowel Movement 04/17/18 04/17/18 # Bowel Movements 0 Narrative: GENERAL: well-nourished, male, in NAD, resting comfortably in bed HEENT: Normocephalic, PERRLA, MOM NECK: C-collar in place CARDIOVASCULAR: Regular rate and rhythm, S1 and S2 no murmurs, rubs, or gallops RESPIRATORY: CTA x2 GASTROINTESTINAL: Abdomen soft, non-tender, distended, normal active bowel sounds MUSCULOSKELETAL: Extremities without clubbing, cyanosis, trace edema NEURO: AAO x3, responds to command, motor system all extremities 4/5, no focal deficits Results - Labs CBC & Chem 7: 04/18/18 05:25 04/18/18 05:25 Laboratory Results - last 24 hr 04/15/18 19:02 Ceruloplasmin 36 Rheumatoid Factor 63 H KENTRELL Screen Negative KENTRELL Titer ND KENTRELL Pattern ND SS-A Antibody <1.0 neg SS-B Antibody <1.0 neg Sm (Ponce) Antibody <1.0 neg SM/MANUSCRIPTS CURATOR Antibody <1.0 neg Scl-70 Antibody <1.0 neg Anti-ds DNA Titer (Crith) ND Anti-ds DNA (Crithidia) Negative Anti-Smooth Muscle Ab Positive 1:40 - Procedures 04/16 paracentesis Assessment and Plan - Assessment (1) Alcoholic cirrhosis Code(s): K70.30 - Alcoholic cirrhosis of liver without ascites Status: Chronic (2) Afib Code(s): I48.91 - Unspecified atrial fibrillation Status: Chronic (3) Liver mass Code(s): R16.0 - Hepatomegaly, not elsewhere classified Status: Chronic (4) Lymphadenopathy, abdominal Code(s): R59.0 - Localized enlarged lymph nodes Status: Acute - Plan 72 year old CM male with PMHX of Liver cirrhosis admitted with abdominal pain and distention and found per CT to have possible liver mass and lymphadenopathy concerning for lymphoma. Patient and opted for hospice, HD#7 1. Cirrhosis/Ascites with possible liver mass with history of alcohol abuse/ Elevated LFT's Patient states that he quit alcohol last month s/p paracentesis with removal of 6500 ml of fluid- Neg fluid culture x72hrs ( final) Elevated tumor markers: alpha-fetoprotein 1574 and CA-19-9 86 Continue Lasix, Aldactone, Lactulose, and Rifaximin GI has signed off Patient is declining MRI of the abdomen for further evaluation of this mass Cont. MV, FA, and thiamine 2. Prominent portal lymphadenopathy as well as retroperitoneal and bilateral iliac lymphadenopathy on CT-possible lymphoma. Oncology consult appreciated; radiology consultation revealed that CT-guided biopsy is unable to be performed due to location. He is not a surgical candidate per general surgery evaluation for surgical excision of the biopsy. At this time, options were discussed thoroughly with patient and and transition to hospice will be done. CODE STATUS and advanced care planning was also performed Status will be changed to DNR per patient and 's wishes. D/C home with hospice today 3. Hyponatremia- likely due to Cirrhosis Na 130 on 04/18, 127 on admission Asymptomatic Continue to monitor 4. Hypotension (Hx of HTN) At baseline, continue to monitor Holding diltiazem and Nadolol Encourage PO hydration Asymptomatic 5. Atrial fibrillation Continue Digoxin and hold Cardizem due to hypotension Evaluated by cardiology last admission; not a good candidate for anticoagulation. 6. Trauma Recent admission to this hospital after a fall with cervical fracture/ rib fracture/ wrist fracture Continue with pain control with Oxy PRN PT/OT Per Dr. Laird patient will still need his c-collar for the next 6 weeks 7. BPH: cont. Flomax 8. DVT prophylaxis: SCD's 9. Disposition: Discharge today home with hospice Code Status: DNR Discussed Condition With: patient, RN (1) Alcoholic cirrhosis Qualifiers: Ascites presence: with ascites Qualified Code(s): K70.31 - Alcoholic cirrhosis of liver with ascites (2) Afib Qualifiers: Atrial fibrillation type: unspecified Qualified Code(s): I48.91 - Unspecified atrial fibrillation
[2018-04-21 09:30] VITALS: BP 94/61; PULSE 107; RESP 24; TEMP 98.2; O2SAT 96
[2018-04-21] MEDS: Furosemide 40 MG Tablet PO SCH (12:55)
--- NOTE | 2018-04-21 14:49 | P.DS ---
Date of admission: 04/15/18 15:10 Primary care physician: PROVIDER NON STAFF Anticipated date of discharge: 04/20/18 Brief History from admission: This is a 72 y/o CM with a PMHx of alcohol abuse and recent admission to this hospital after a fall who presented to ER with abdominal distention. Patient states that sx started about 10wks ago. Patient has some generalized abdominal pain with no nausea, vomiting, fever or chills. +SOB which he relates to his abdominal distention, +constipation. DS: Diagnosis - Discharge Diagnosis (1) Alcoholic cirrhosis Status: Chronic (2) Afib Status: Chronic (3) Liver mass Status: Chronic (4) Lymphadenopathy, abdominal Status: Acute DS: Summary Hospital Course: This is a 72 year old CM male with PMHX of Liver cirrhosis and A. Fib admitted with abdominal pain and distention and found per CT to have possible liver mass and lymphadenopathy concerning for lymphoma. Patient was admitted for IP mgmt of Cirrhosis/Ascites with possible liver mass with history of alcohol abuse with elevated LFT's. Patient stated that he quit alcohol last month. Patient underwent paracentesis with removal of 6500 ml of fluid- Neg fluid culture x72hrs (final). Per labs, elevated tumor markers: alpha-fetoprotein at 1574 and CA19-9 at 86. Patient was managed with Lasix, Aldactone, Lactulose, and Rifaximin with adequate diuresis. Patient declined MRI of the abdomen for further evaluation of this mass. Patient was also found to have prominent portal lymphadenopathy as well as retroperitoneal and bilateral iliac lymphadenopathy on CT-possible lymphoma. Oncology was consulted and IR consultation revealed that CT-guided biopsy is unable to be performed due to location. Patient was not a surgical candidate per general surgery evaluation for surgical excision of the biopsy. At this time, options were discussed thoroughly with patient and . They opted for home with hospice. Consult was placed, patient was to be discharged on 1010 however discharge was done today instead as his hospice medications and equipment were not available until today. CODE STATUS and advanced care planning was also performed, status was changed to DNR per patient and 's wishes. Of note, patient has chronic hyponatremia- likely due to Cirrhosis. Na was 130 on 04/18 and 127 on admission. Patient was asymptomatic. Patient also had hypotension during his hospitalization (Hx of HTN). During the hospitalization Diltiazem and Nadolol were held, these were also held on discharge. Patient has a Hx of Atrial fibrillation. Patient was continued on Digoxin, Cardizem was held due to hypotension. Patient was evaluated by cardiology last admission and was not a good candidate for anticoagulation. Patient also had a recent admission after a fall with cervical fracture/rib fracture/wrist fracture. PT/OT was consulted. Per Dr. Laird patient will still need his c-collar for the next 6 weeks. Disposition: Discharge today, home with hospice - Time Spent with Patient Total time spent providing and/or coordinating discharge services: Greater than 30 minutes - Quality: VTE Deep Vein Thrombosis/Pulmonary Embolism Present on Admission: No Exam Vital signs: Vital Signs 04/20/18 16:00 04/20/18 18:58 04/21/18 00:00 Temperature 97.9 F 97.4 F L 97.3 F L Pulse Rate 99 H 99 H 89 Respiratory Rate 18 17 18 Blood Pressure 101/60 90/54 L 104/61 Pulse Oximetry 96 96 98 04/21/18 03:38 04/21/18 08:00 Temperature 98 F 98.2 F Pulse Rate 89 107 H Respiratory Rate 15 24 Blood Pressure 94/60 L 94/61 L Pulse Oximetry 99 96 Intake & Output 04/20/18 04/21/18 04/21/18 18:59 06:59 18:59 Intake Total 240 / 240 Balance 240 / 240 Intake: Oral 240 / 240 Other: # Voids 3 # Incontinent Voids 6 Date of Last Bowel Movement 04/17/18 04/17/18 # Bowel Movements 0 Narrative: GENERAL: well-nourished, male, in NAD, resting comfortably in bed HEENT: Normocephalic, PERRLA, MOM NECK: C-collar in place CARDIOVASCULAR: Regular rate and rhythm, S1 and S2 no murmurs, rubs, or gallops RESPIRATORY: CTA x2 GASTROINTESTINAL: Abdomen soft, non-tender, distended, normal active bowel sounds MUSCULOSKELETAL: Extremities without clubbing, cyanosis, trace edema NEURO: AAO x3, responds to command, motor system all extremities 4/5, no focal deficits Results Procedures completed during hospitalization: 04/16 paracentesis Labs on day of discharge: Labs from last 24 hours 04/15/18 19:02 Ceruloplasmin 36 KENTRELL Screen Negative KENTRELL Titer ND KENTRELL Pattern ND SS-A Antibody <1.0 neg SS-B Antibody <1.0 neg Sm (Ponce) Antibody <1.0 neg SM/STREET LIGHT SERVICER SUPERVISOR Antibody <1.0 neg Scl-70 Antibody <1.0 neg Anti-ds DNA Titer (Crith) ND Anti-ds DNA (Crithidia) Negative - Impressions ITS Impressions Abdomen/Pelvis CT 04/15/18 11:42 CONCLUSION: 1. Prominent portal lymphadenopathy as well as retroperitoneal and bilateral iliac lymphadenopathy. Differential diagnosis includes metastatic lymphadenopathy and lymphoma. 2. 2.4 cm low-density lesion within the uncinate process of the pancreas which is indeterminate. Outpatient MRI of the abdomen with contrast may be helpful for further evaluation of this lesion. 3. Large area of decreased attenuation involving the left lobe of the liver as well as enlargement of the caudate lobe. MRI of the abdomen with contrast may be helpful to rule out subtle underlying mass if clinically indicated. 4. Enlarged, heterogeneous and nodular in contour indicating cirrhosis. 5. Chronic calcific pancreatitis. 6. 9 mm calcified nonobstructing right pelvicalyceal system calculus and 6 mm calcified nonobstructing right renal calculus. 7. Extensive ascites. 8. Bilateral inguinal hernias. 9. Tiny 11 mm right adrenal nodule consistent with probable adrenal adenoma. 10. Cholelithiasis. 11. Moderate-sized left pleural effusion and tiny right pleural effusion with adjacent compressive atelectasis. 12. Coronary artery calcifications. 13. Degenerative changes and scoliosis of the thoracolumbar spine. Chest CT 04/16/18 00:00 CONCLUSION: 1. No lung masses are seen. 2. Mild left pleural effusion and minimal right pleural effusion. 3. Left-sided rib fractures and focal area of sclerosis at the right sixth rib which could be from prior fracture. Paracentesis Ultrasound 04/16/18 00:00 CONCLUSION: 1. Uncomplicated diagnostic and therapeutic paracentesis. CT Consultation 04/18/18 00:00 CONCLUSION: The [address] are not amenable to percutaneous biopsy. Discharge Plan - Discharge Disposition Patient Disposition: 50 Hospice/Home - Discharge Condition Condition: Stable - Discharge Order Discharge Orders: Discharge Order (Routine); Ordered 04/20/18 Ordered By: Ana Tobias - Physicians Team Primary Care Provider: NON STAFF,PROVIDER Attending Provider: Raissa Castellanos Other Providers: Freddie Brown MD ; Cheyanne Ly ; Robbie Laird MD ; Macario Mackenzie MD
== END 2018-04-21 12:20 | disposition hospice, home (50) ==
LOC: NEPE 10:06 → NEDA 15:10 → N06 16:33
PROVIDERS: ADMIT Family Medicine; ATTEND Family Medicine